=== PATIENT | male | born 1940 | race Hispanic/Latino ===

== ENCOUNTER → 2016-07-28 | Outpatient (CLI) | payer MEDICARE, MEDICAID | END | disposition home or self-care (01) | LOC: YCFC.O 07:43 | PROVIDERS: ATTEND Nurse Practitioner Family | DX: E11.65 Type 2 diabetes mellitus with hyperglycemia (principal) ==

== ENCOUNTER 2016-10-10 12:04 | Observation (INO) | payer MEDICARE, MEDICAID ==
[2016-10-10] MEDS ORDERED: SODIUM CHLORIDE 0.9% 1000ML 1,000 ML IVS ONE (12:09)
[2016-10-10] MEDS ORDERED: ONDANSETRON INJ 4 MG/2 ML VIAL IV ONE (12:09)
--- NOTE | 2016-10-10 12:19 | ED.PDOC ---
History of Present Illness - General Chief Complaint: Abdominal Pain Stated Complaint: abdominal pain, constipation, weakness Time Seen by Provider: 10/10/16 12:06 Information Source: patient, RN notes reviewed, other - friend Additional Information: Pt states he lives alone and sometimes he reheats food that has been sitting out for a few hours/days. He says he thinks he may have food poisoning. He reports 3 to 4 days of nausea/vomiting/constipation/anorexia. He also reports feeling liking his abdomen/stomach is "on fire". He does not get care regularly and he is not taking any medicines. He reports emesis of liquid (unsure color) recently. - History of Present Illness Abdominal Pain Onset Location: epigastric Pain Radiation: no radiation Quality: mild, cramping, dull, intermittent Timing/Duration: days - x3 to4 Improving Factors: nothing Associated Symptoms: fever/chills, nausea/vomiting, shortness of breath, weakness Review of Systems - Review of Systems Constitutional: States: weakness EENTM: States: no symptoms reported Respiratory: States: short of breath Cardiology: States: no symptoms reported Gastrointestinal/Abdominal: States: see HPI, abdominal pain, constipation, vomiting Genitourinary: States: no symptoms reported Musculoskeletal: States: no symptoms reported Skin: States: no symptoms reported Neurological: States: no symptoms reported Endocrine: States: no symptoms reported Hematologic/Lymphatic: States: no symptoms reported Past Medical History (General) - Patient Medical History Hx Seizures: No Hx Stroke: No Hx Dementia: No Hx Pacemaker: No Hx Thyroid Disease: No Hx Diabetes: Yes Hx Cancer: No Hx of HIV: No Hx Hepatitis C: No Hx MRSA: No MRSA Source:: Wound - Vaccination History Hx Influenza Vaccination: Yes - Social History Hx Tobacco Use: No Hx Alcohol Use: No Hx Substance Use: No Hx Substance Use Treatment: No Hx Depression: No - Female History Patient : No Family Medical History - Family History Father Family History: Unknown Physical Exam - Physical Exam General Appearance: Alert, No apparent distress, Obese, Unkempt Eyes, Ears, Nose, Throat Exam: PERRL/EOMI, normal ENT inspection Neck: non-tender, full range of motion, supple, normal inspection Respiratory: chest non-tender, lungs clear, normal breath sounds, no respiratory distress, no accessory muscle use Cardiovascular/Chest: normal peripheral pulses, regular rate, rhythm Gastrointestinal/Abdominal: soft, distended - mild, other - no guarding Back Exam: normal inspection Extremity: normal range of motion, non-tender, normal inspection Neurologic: student support counselor II-XII nml as tested, no motor/sensory deficits, alert, normal mood/affect, oriented x 3 Skin Exam: normal color Lymphatic: no adenopathy Progress - Progress Progress: 10/10/16 12:37 Pt concerned for possible food poisoning given reheating of food that has been laying out for several hours/days. Pt is unkempt. He is in no distress. Will assess for hematologic, metabolic, and GI abnormalities with labs and CT Scan. EKG WNL, CBC and urine studies pending. Will treat symptoms with NS bolus and Zofran for now. 10/10/16 14:13 CT Report: IMPRESSION: No inflammatory finding to explain this patient's abdominal pain. No evidence of acute appendicitis. No evidence of bowel obstruction. Cholelithiasis. Prostate gland hypertrophy likely causing some bladder outlet obstruction. The gallbladder is distended. Aortic atherosclerosis and coronary artery disease. Patient states that his abdomen feels "not worse". I relayed results to him. He said, he can't ambulate at home. He is hoping to be admitted for this. 10/10/16 14:23 Patient will be admitted by ELLI Stern for Observation - Diagnosis: Weakness. - Results/Orders Results/Orders: 10/10/16 12:09 Hold Metformin x 48Hrs [id number] 10/10/16 12:21 EKG Assessment ONCE Laboratory Results - last 24 hr 10/10/16 10/10/16 10/10/16 12:06 12:06 12:07 WBC 10.6 RBC 5.16 Hgb 16.6 Hct 48.5 MCV 94.0 MCH 32.1 H MCHC 34.2 RDW 13.5 Plt Count 213 MPV 8.5 Absolute Neuts (auto) 8.90 H Absolute Lymphs (auto) 1.00 Absolute Monos (auto) 0.60 Absolute Eos (auto) 0.00 Absolute Basos (auto) 0.10 Neutrophils % 84.6 H Lymphocytes % 9.2 L Monocytes % 5.7 Eosinophils % 0.0 L Basophils % 0.5 Sodium 141 Potassium 3.5 L Chloride 103 Carbon Dioxide 28 Anion Gap 13.5 BUN 16 Creatinine 0.88 BUN/Creatinine Ratio 18.2 Random Glucose 81 Serum Osmolality 281.5 Calcium 9.3 Phosphorus 3.1 Magnesium 2.0 Total Bilirubin 0.6 AST 27 ALT 20 Alkaline Phosphatase 94 Creatine Kinase CK-MB (CK-2) CK-MB (CK-2) % Troponin I Serum Total Protein 8.1 Albumin 4.1 Globulin 4.0 H Albumin/Globulin Ratio 1.0 L Lipase 16 L Urine Color Urine Appearance Urine pH Ur Specific Bryant Urine Protein Urine Glucose (UA) Urine Ketones Urine Blood Urine Nitrite Urine Bilirubin Urine Urobilinogen Ur Leukocyte Esterase Urine RBC Urine WBC Ur Epithelial Cells Amorphous Sediment Urine Bacteria Urine Mucus Urine Opiates Screen Urine Barbiturates Ur Phencyclidine Scrn U Amphetamin/Meth Scrn U Benzodiazepines Scrn U Cocaine Metab Screen U Cannabinoids Screen 10/10/16 10/10/16 10/10/16 12:07 12:09 13:28 WBC RBC Hgb Hct MCV MCH MCHC RDW Plt Count MPV Absolute Neuts (auto) Absolute Lymphs (auto) Absolute Monos (auto) Absolute Eos (auto) Absolute Basos (auto) Neutrophils % Lymphocytes % Monocytes % Eosinophils % Basophils % Sodium Potassium Chloride Carbon Dioxide Anion Gap BUN Creatinine BUN/Creatinine Ratio Random Glucose Serum Osmolality Calcium Phosphorus Magnesium Total Bilirubin AST ALT Alkaline Phosphatase Creatine Kinase 263 H* CK-MB (CK-2) 4.0 CK-MB (CK-2) % Not Reportable Troponin I 0.02 Serum Total Protein Albumin Globulin Albumin/Globulin Ratio Lipase Urine Color Yellow Urine Appearance Clear Urine pH 6.0 Ur Specific Bryant 1.015 Urine Protein Trace Urine Glucose (UA) 100 H Urine Ketones 15 H Urine Blood Negative Urine Nitrite Negative Urine Bilirubin Negative Urine Urobilinogen 0.2 Ur Leukocyte Esterase Trace H Urine RBC 0 Urine WBC 3-5 H Ur Epithelial Cells 10-20 Amorphous Sediment 1+ Urine Bacteria Rare Urine Mucus Moderate Urine Opiates Screen Negative Urine Barbiturates Negative Ur Phencyclidine Scrn Negative U Amphetamin/Meth Scrn Negative U Benzodiazepines Scrn Negative U Cocaine Metab Screen Negative U Cannabinoids Screen Negative - EKG/XRAY/CT EKG: Sinus - 84 bpm, no ST Elevation Departure - Departure Clinical Impression: Weakness Vomiting Qualifiers: Vomiting Intractability: intractable Nausea presence: with nausea Time of Disposition: 14:38 Disposition: Admit Patient Condition: Fair Referrals: Betty,Liane, KENNEL ASSISTANT [Primary Care Provider] - 1-2 Weeks Home Medications: Ambulatory Orders Acetaminophen W/ Codeine [Tylenol W/ CODEINE #3] 1 ea PO BID PRN #10 06/09/14 Methocarbamol [Robaxin] 500 mg PO BEDTIME PRN #7 tab 06/09/14 Decision To Admit - Decistion To Admit Decision to Admit Reason: Medical Nature - Weakness. Admit for Observation. Decision to Admit Date: 10/10/16 Decision to Admit Time: 14:22
--- NOTE | 2016-10-10 14:05 | CT ---
EXAM DESCRIPTION: Abdomen/Pelvis w/Contrast CLINICAL HISTORY: 76 years Male, abdominal pain COMPARISON: None. TECHNIQUE: 5 mm axial images through the abdomen and pelvis were performed after the administration of intravenous contrast. Coronal and instructions. This exam was performed according to our departmental dose-optimization program which includes use of Automated Exposure Control, adjustment of the mA and/or kV according to patient size and/or use of iterative reconstruction technique. FINDINGS: The lung bases are clear aside from atelectasis. Multiple gallstones layering the gallbladder but there is no pericholecystic fat stranding. Postcontrast images of the liver, spleen, kidneys (small renal cysts), adrenal glands and atrophic pancreas are unremarkable. No ascites or small bowel obstruction. Noninflamed appendix. Vascular calcifications are present with aortic and at least moderate coronary artery involvement. Well-distended bladder without calculus. The prostate gland is hypertrophic. Fat-containing inguinal hernias, LEFT greater than RIGHT. No free fluid in the pelvis. IMPRESSION: No inflammatory finding to explain this patient's abdominal pain. No evidence of acute appendicitis. No evidence of bowel obstruction. Cholelithiasis. Prostate gland hypertrophy likely causing some bladder outlet obstruction. The gallbladder is distended. Aortic atherosclerosis and coronary artery disease. Electronically signed by: Yahaira Ortiz MD 10/10/2016 2:05 PM CDT
--- NOTE | 2016-10-10 14:36 | HP ---
SUPERVISING PHYSICIAN: Dung Guerrero M.D. CHIEF COMPLAINT: Abdominal pain. HISTORY OF PRESENT ILLNESS: This is a 76 year-old male patient who lives alone and came to the Emergency Room today saying that he thinks he may have food poisoning. He has been reheating food that has been left out for 3 to 4 days. He reports that he feels like his stomach is on fire. It is "on fire." He occasionally goes to [facility] but he does not take any medications, although he does say he has diabetes and has been told his blood pressure was high. He has also had some vomiting over the last couple of days and his time to have a stool was 3 days ago. He also complained of some extreme weakness that has been much worse in the last 3 days. Prior to 3 days ago, he could ambulate around his home with a walker and did not have any problems. About 3 days ago he has been unable to walk more than a few feet and he gets extremely weak and short of breath with any exertion. He is mostly [place]-speaking, although he can say a few words in Irish. PAST MEDICAL HISTORY: Difficult to obtain due to minimal medical care as well as the patient's inability to describe his past problems. 1. Diabetes mellitus. 2. Hypertension. PAST SURGICAL HISTORY: None. ALLERGIES: NO KNOWN DRUG ALLERGIES. CODE STATUS: DO NOT RESUSCITATE. SOCIAL HISTORY: He lives alone. He rarely receives medical assistance. He denies any tobacco, alcohol or illicit drug use. REVIEW OF SYSTEMS: Difficult to obtain due to minimal medical care as well as the patient's inability to describe his past problems. Negative except as per History of Present Illness. PHYSICAL EXAMINATION: VITAL SIGNS: He is afebrile, heart rate 83, blood pressure 166/89, respiratory rate 20, O2 sat is 93%. GENERAL: This is a 76 year-old obese male who is slightly unkempt. HEENT: Normocephalic and atraumatic. Pupils are equal and reactive. Oropharynx is clear. NECK: Supple without mass. CHEST: Clear to auscultation bilaterally except somewhat diminished at the bases. There is equal rise and fall of the chest with inspiration and expiration. CARDIOVASCULAR: Regular rate and rhythm. ABDOMEN: Rounded. It is obese. It is slightly firm. There is no rebound tenderness or guarding. EXTREMITIES: No cyanosis, clubbing or edema. NEUROLOGIC: He is awake, alert and oriented times three. LABORATORY: CBC is basically within normal limits, except his MCH is slightly high at 32.1 and neutrophils are 84.6. Sodium 141, potassium 3.5, chloride 103 , carbon dioxide 28, BUN 16, creatinine 0.88. Creatinine kinase is slightly elevated at 263, but his CK-MB and troponin are negative. Blood sugars have been 75 and 79. Lipase was 16. Abdomen and pelvis CT per radiology interpretation shows no inflammatory findings to explain this patient's abdominal pain. No evidence of acute appendix. No evidence of a bowel obstruction. Cholelithiasis, prostate gland hypertrophy likely causing some bladder outlet obstruction. The gallbladder is distended. Aortic atherosclerosis and coronary artery disease. All other labs and films have been reviewed via the EMR. ASSESSMENT: 1. Weakness with decreased ability to ambulate times 3 days. 2. Abdominal pain with nausea and vomiting. 3. Diabetes mellitus type 2. 4. Hypertension. 5. Constipation. PLAN: We will place the patient in Observation. I have initiated admission orders and we will gently hydrate him. I will keep him NPO for now and give him antiemetics. I will have IV maintenance fluids. In the morning, I will do an abdominal x-ray and if he has had no nausea overnight, we will advance his diet. If he is constipated, I will give him some Milk of Magnesia tomorrow. I have added sliding scale with Humalog insulin. We will continue to monitor him closely. I have also put a referral in for Operations General Agent to see if we can get him established with some home health. Maybe he can get some meals on wheels. Otherwise we will continue to monitor the patient closely and followup as needed. Dr. Guerrero is the collaborating physician available for consultation. #[id number] MARIAH
[2016-10-10] MEDS ORDERED: ACETAMINOPHEN SUPPOSITORY 650 MG PR PRN (15:41)
[2016-10-10] MEDS ORDERED: ONDANSETRON INJ 4 MG/2 ML VIAL IV PRN (15:41)
[2016-10-10] MEDS ORDERED: GLUCAGON INJ 1 MG VIAL SUBCU PRN (15:45)
[2016-10-10] MEDS ORDERED: DEXTROSE 50% 25 GM/50 ML SYG IV PRN (15:45)
[2016-10-10] MEDS: KCL 20MEQ/D5 1/2NS 1,000 ML IVS PRN ×2 (16:24→16:32)
[2016-10-10] MEDS: PANTOPRAZOLE SODIUM IV 40 MG VIAL IV SCH (16:32)
[2016-10-10] MEDS: IV SET AND CAP CHANGE INJ INJ SCH (16:33)
[2016-10-10] MEDS: ENOXAPARIN SODIUM 40 MG/0.4 ML SYG SUBCU SCH (16:33)
[2016-10-10] MEDS: INSULIN LISPRO 100 UNITS/ML PEN SUBCU SCH (18:00)
[2016-10-11] MEDS: INSULIN LISPRO 100 UNITS/ML PEN SUBCU SCH ×5 (00:15→21:19)
[2016-10-11] MEDS: KCL 20MEQ/D5 1/2NS 1,000 ML IVS PRN ×2 (00:50→12:56)
[2016-10-11] MEDS ORDERED: HYDROmorphone HCL INJ 2 MG/ML VIAL ONE (01:06)
[2016-10-11] MEDS: SODIUM CHLORIDE 0.9% (FLUSH) 10 ML SYG IV PRN ×3 (01:20→22:37)
[2016-10-11] MEDS: HYDROmorphone HCL INJ 2 MG/ML VIAL IV PRN ×3 (01:21→22:38)
--- NOTE | 2016-10-11 07:21 | RAD ---
Procedure: XR ABDOMEN 2 VIEWS SUPINE ERECT Exam Date: 10/11/2016 Ordering Provider: SERENITY ROBIN Clinical Indication: abd pain Comparison: 10/10/2016 CT abdomen pelvis Findings: There is excreted contrast in the distended urinary bladder from yesterday's CT. There is no small or large bowel distention. There is no pneumoperitoneum. There are no suspicious calcifications. There is no acute skeletal abnormality. Impression: 1. Nonobstructive bowel gas pattern. 2. Distended urinary bladder. Electronically signed by: Gasper Bryant MD 10/11/2016 7:20 AM CDT
[2016-10-11] MEDS ORDERED: MAGNESIUM HYDROXIDE 30 ML UD PO PRN (14:54)
[2016-10-11] MEDS: PANTOPRAZOLE SODIUM IV 40 MG VIAL IV SCH (16:41)
[2016-10-11] MEDS: ENOXAPARIN SODIUM 40 MG/0.4 ML SYG SUBCU SCH (16:41)
[2016-10-11] MEDS: MAGNESIUM HYDROXIDE 30 ML UD PO SCH ×2 (17:11→21:17)
--- NOTE | 2016-10-11 17:19 | PN ---
DATE: 10/11/16 SUPERVISING PHYSICIAN: Dung Guerrero M.D. SUBJECTIVE: The patient has been having a lot of abdominal pain this morning. He also per his x-ray showed that he had a distended bladder. Nursing was unable to place a catheter due to extensive phimosis. The patient was very uncomfortable, although he denied any chest pain, shortness of breath, nausea or vomiting. A Sanchez was placed, although the catheterization was somewhat traumatic due to his phimosis, 1,000 mL was returned after the catheter was placed. The patient did experience some level of relief after the Sanchez was inserted. OBJECTIVE: VITAL SIGNS: He is afebrile, pulse rate 80, blood pressure 116/68, respiratory rate 18, O2 sat is 93%. RESPIRATORY: Clear to auscultation bilaterally. CARDIAC: Regular rate and rhythm. ABDOMEN: Large and rounded, firm. Bowel sounds are positive. It is diffusely tender especially along the lower umbilicus area and pubic area. GENITOURINARY: His foreskin is irritated and red with some oozing of blood in the skin due to trauma. A Sanchez catheter is in place draining clear yellow urine. NEUROLOGIC: He is awake, alert and oriented times three. LABORATORY: CBC is basically within normal limits. Chemistry is basically within normal limits with the exception of his glucose is slightly high at 220, calcium 8.2. Urine culture is pending. Abdominal x-ray per radiology interpretation shows a nonobstructive bowel gas pattern with distended urinary bladder. Per my interpretation, it looks like the patient could have some constipation. All other labs and films have been reviewed via the EMR. ASSESSMENT: 1. Weakness with decreased ability to ambulate times 3 days that continues. 2. Traumatic catheterization due to phimosis. 3. Abdominal pain that could be related to bladder outlet obstruction or distended urinary bladder as well as constipation. 4. Nausea and vomiting that has now resolved. 5. Diabetes mellitus type 2. 6. Hypertension. PLAN: The patient continues to be in Observation. I will consult Dr. Larose tomorrow as he will be in clinic. Will also give him a couple of doses of Milk of Magnesia. Physical Therapy has already been consulted for tomorrow. Due to the results on the CAT scan from date of admission showing possible bladder outlet obstruction as well as the x-ray that shows a distended urinary bladder, after consultation with Dr. Larose he may need to be placed as an inpatient. Will order lab in the morning. Will continue to monitor the patient closely and followup as needed. Dr. Guerrero is the collaborating physician and available for consultation. #[id number] [facility]
[2016-10-11] MEDS ORDERED: KCL 20MEQ/D5 1/2NS 0 ML IVS ONE (20:21)
[2016-10-12] MEDS: SODIUM CHLORIDE 0.9% (FLUSH) 10 ML SYG IV PRN (02:10)
--- NOTE | 2016-10-12 06:59 | RAD ---
EXAM DESCRIPTION: Abdomen Flat Upright CLINICAL HISTORY: 76 years, Male, abd pain COMPARISON: Abdominal radiographs October 11, 2016 CT abdomen and pelvis with contrast October 10, 2016 TECHNIQUE: Supine and upright views of the abdomen FINDINGS: The bowel gas pattern is normal. There is no evidence of free air. There are no abnormal masses or calcifications. Limited evaluation of the liver, spleen, and kidneys demonstrate no gross abnormalities. The osseous structures are age appropriate. IMPRESSION: No acute intra-abdominal process. Electronically signed by: Yoel Philippe MD 10/12/2016 6:58 AM CDT
[2016-10-12] MEDS: INSULIN LISPRO 100 UNITS/ML PEN SUBCU SCH ×4 (07:59→21:30)
[2016-10-12] MEDS: SODIUM CHLORIDE 0.9% (FLUSH) 10 ML SYG IV SCH ×2 (09:11→21:30)
[2016-10-12] MEDS ORDERED: cefTRIAXone SODIUM 1 GM VIAL ONE ×2 (13:18→13:25)
[2016-10-12] MEDS ORDERED: SODIUM CHLORIDE 0.9% 50ML 50 ML ONE (13:20)
[2016-10-12] MEDS ORDERED: SODIUM CHL 0.9% 50ML MIN-BAG+ 50 ML IVPB ONE (13:25)
[2016-10-12] MEDS: cefTRIAXone SODIUM 1 GM in SODIUM CHL 0.9% 50ML MIN-BAG+ 50 ML IVPB SCH (13:27)
[2016-10-12] MEDS ORDERED: MAGNESIUM HYDROXIDE 30 ML UD PO ONE (15:06)
[2016-10-12] MEDS: ENOXAPARIN SODIUM 40 MG/0.4 ML SYG SUBCU SCH (15:33)
[2016-10-12] MEDS ORDERED: KETOROLAC TROMETHAMINE INJ 30 MG/ML VIAL IV ONE (16:36)
[2016-10-12] MEDS ORDERED: ACETAMINOPHEN 325 MG TAB PO PRN (16:36)
[2016-10-12] MEDS ORDERED: KETOROLAC TROMETHAMINE INJ 30 MG/ML VIAL ONE (18:10)
[2016-10-12] MEDS: PANTOPRAZOLE SODIUM IV 40 MG VIAL IV SCH (18:10)
--- NOTE | 2016-10-12 23:42 | PCM.CORE ---
Physician DVT/VTE - Nurse DVT Assessment & Total Each Risk Factor Represents 3 Points: Age over 75 years Each Risk Factor Represents 1 Point: Medical PT at Bed Rest Each Risk Factor is 1 Point: Obesity (BMI >25) DVT Assessment Score: 5 - 5 or more Very High Risk Treatments: Early Ambulation *, Sequential Compression Device Pharmacological: Enoxaparin 40mg SQ Daily
[2016-10-13] MEDS: SODIUM CHLORIDE 0.9% (FLUSH) 10 ML SYG IV PRN (01:37)
[2016-10-13] MEDS: HYDROmorphone HCL INJ 2 MG/ML VIAL IV PRN ×2 (01:38→08:47)
[2016-10-13 05:45] VITALS: TEMP 98.9
[2016-10-13] MEDS ORDERED: SODIUM CHL 0.9% 50ML MIN-BAG+ 50 ML IVPB ONE (07:21)
[2016-10-13] MEDS ORDERED: cefTRIAXone SODIUM 1 GM VIAL ONE (07:22)
[2016-10-13] MEDS: INSULIN LISPRO 100 UNITS/ML PEN SUBCU SCH ×2 (07:33→11:50)
--- NOTE | 2016-10-13 08:37 | PN ---
SUPERVISING PHYSICIAN: Goldy Ball MD DATE: 10/12/16 SUBJECTIVE: The patient was given some Milk of Magnesia and had minimal results last night. He did have a catheter placed, which is working well. He continues to have severe weakness and was able to be assessed by physical therapy, but was very weak in the process. OBJECTIVE: VITAL SIGNS: Temperature 98.1. Pulse 95. Blood pressure 150/83. Respirations 18. Saturation 92% on room air. I&Os show positive balance of 577 with 3107 in, 2530 out. He has had a couple of bowel movements. Weight 101.1 kg. CHEST: Lungs clear to auscultation bilaterally. HEART: Regular rate and rhythm. ABDOMEN: Remains large, rounded, very obese with positive bowel sounds with no tenderness noted on palpation today. GENITOURINARY: Continues to show some irritated oozing around the meatus and glans of the penis with Sanchez catheter in place. NEUROLOGIC: Alert and oriented times three. LABORATORY: White count within normal limits at 10.5, hemoglobin 15.1, hematocrit 43.6, platelet count 181,000, differential within normal limits. Chemistries normal electrolytes with potassium 3.9, BUN 11, creatinine 0.95, glucoses have been 197 to 288. Liver functions show slightly elevated bilirubin at 1.1, otherwise within normal limits. A repeat urinalysis today after clamping of catheter specimen showed a large amount of blood with 500 glucose, trace leukocytosis, and microscopic showed too numerous to count RBCs, 1 to 2 WBCs with rare bacteria. MICROBIOLOGY: Preliminary culture on admission showed gram positive cocci with gram negative jess pending final culture. Re-culture catheterized specimen is pending. RADIOLOGY: Repeat abdominal x-ray series this morning per radiologic interpretation shows no acute intraabdominal processes, continues to show normal bowel-gas pattern with a large amount of stool. ASSESSMENT: 1. Continued weakness with deconditioning, likely secondary to continued ongoing constipation and obesity with very limited mobility. 2. Traumatic catheterization due to phimosis with consultation with Dr. Larsoe with urinary catheter in place. 3. Abdominal pain related to bladder outlet obstruction and distended bladder, improved with placement of Sanchez catheter and continues to show a significant amount of constipation, but has some small results with laxatives and Milk of Magnesia. 4. Nausea and vomiting on admission, but currently without any active emesis, felt to be secondary to ongoing abdominal distention from constipation. 5. Type 2 diabetes mellitus. 6. Hypertension. PLAN: The patient was seen in consultation by Dr. Larose who recommended Sanchez catheter remain in place for at least 3 to 4 weeks and for the patient to followup with Dr. Larose for repeat examination. I did re-culture his urine from a catheterized specimen. We will await those culture results. Pending final culture results, we will start him on Rocephin. I feel like the culture result initially on admission was probably more contamination. We will continue to provide good perineal care with emphasis on cleaning glans of the penis and foreskin area. We will give him a soapsuds enema today as well as additional Milk of Magnesia and continue to work on his obstipation. Until discharge, which will hopefully be tomorrow, we will continue to monitor the patient closely and treat appropriately. Once discharged, arrangements are being made at this point to go home with his son who lives in [place] to have home health care at that point. Amanda, our social media developer, is continuing to work on this process. #[id number] [facility]
[2016-10-13] MEDS: SODIUM CHLORIDE 0.9% (FLUSH) 10 ML SYG IV SCH (08:49)
[2016-10-13] MEDS ORDERED: MAGNESIUM HYDROXIDE 30 ML UD PO SCH (09:00)
[2016-10-13] MEDS ORDERED: BIFIDOBACTERIUM INFANTIS 4 MG CAP PO SCH (09:30)
[2016-10-13] MEDS ORDERED: KETOROLAC TROMETHAMINE INJ 30 MG/ML VIAL IV ONE (10:16)
[2016-10-13 10:23] VITALS: BP 156/85
[2016-10-13] MEDS ORDERED: POLYETHYLENE GLYCOL 3350 17 GM PCKT PO SCH (10:30)
[2016-10-13] MEDS ORDERED: PANTOPRAZOLE SODIUM TAB 40 MG PO SCH (11:30)
[2016-10-13] MEDS: cefTRIAXone SODIUM 1 GM in SODIUM CHL 0.9% 50ML MIN-BAG+ 50 ML IVPB SCH (12:30)
[2016-10-13 17:23] VITALS: O2SAT 98
[2016-10-16] MEDS: ENOXAPARIN SODIUM 40 MG/0.4 ML SYG SUBCU SCH (11:14)
[2016-10-16] MEDS: INSULIN LISPRO 100 UNITS/ML PEN SUBCU SCH (11:14)
[2016-10-16] MEDS: IV SET AND CAP CHANGE INJ INJ SCH (11:15)
== END 2016-10-13 16:40 | disposition home health service (06) ==
LOC: ER 12:04 → MS 14:34
PROVIDERS: ADMIT Nurse Practitioner Acute Care; ATTEND Nurse Practitioner Family
DX: N32.0 Bladder-neck obstruction (principal); N47.1 Phimosis; N32.89 Other specified disorders of bladder; R53.1 Weakness; K59.00 Constipation, unspecified; R11.2 Nausea with vomiting, unspecified; R10.13 Epigastric pain; E11.9 Type 2 diabetes mellitus without complications; I10 Essential (primary) hypertension; R26.2 Difficulty in walking, not elsewhere classified; K80.20 Calculus of gallbladder without cholecystitis without obstruction; I25.10 Atherosclerotic heart disease of native coronary artery without angina pectoris; I70.0 Atherosclerosis of aorta; Z66 Do not resuscitate; Z79.4 Long term (current) use of insulin; Z79.899 Other long term (current) drug therapy; Z60.2 Problems related to living alone
CPT/HCPCS: 36415 ×4; 36416 ×10; 74010 ×2; 74177; 80048; 80053 ×3; 80307; 81001 ×2; 82550; 82553; 82948 ×13; 83036; 83690; 83735; 84100; 84484; 85025 ×4; 87086 ×2; 87088 ×2; 87186 ×3; 93005; 94760 ×16; 96361 ×2; 96365; 96372 ×4; 96375 ×4; 96376 ×3; 97116; 97162; 97530; 99284; A4216; G0378; G8978; G8979; J0696; J1170 ×5; J1650 ×3; J1815; J1885 ×2; J2405 ×2; J7030; J7050

== ENCOUNTER 2018-02-10 10:32 | Emergency (ER) | payer MEDICARE, OTHER ==
[2018-02-10 10:55] VITALS: TEMP 97.8
--- NOTE | 2018-02-10 12:42 | RAD ---
EXAM DESCRIPTION: Abdomen Series CLINICAL HISTORY: confusion COMPARISON: October 12, 2016 FINDINGS: AP supine and upright views of the abdomen show a nonspecific, nonobstructive bowel gas pattern with no evidence for free intraperitoneal air. No air-filled dilated loops of small bowel are seen. No significant air-fluid levels are identified. No obvious organomegaly is seen. No abnormal calcifications are seen in the expected location of the renal collecting systems. Visualized lung bases are unremarkable. IMPRESSION: Nonspecific abdominal series Electronically signed by: Behzad Roberson MD 02/10/2018 12:40 PM CDT
[2018-02-10] MEDS ORDERED: ACETAMINOPHEN 325 MG TAB PO ONE (14:20)
--- NOTE | 2018-02-10 16:33 | ED.PDOC ---
History of Present Illness - General Chief Complaint: Behavioral / Psych Stated Complaint: Scared, fearful of surrounding people Time Seen by Provider: 02/10/18 10:34 Source: patient Exam Limitations: clinical condition, language barrier - History of Present Illness Initial Comments: the patient is a 77-year-old male presenting to the emergency room practically stating that someone was trying to kill him. The patient was very paranoid and anxious upon arrival. Please did calm eventually however after extensive questioning and more than an hour spent with the patient it appears that he was simply upset because he thought his insurance coverage was not going to cover his medications, socially he was going to . The patient is Lao-speaking only and an site interpreter was used. Even with an site interpreter the patient was so excited initially that most of what he was saying was not making much sense. There was some initial concern for psychosis versus a stroke however after the patient calmed down and he was making good sense. He does seem to have some mild long-term memory deficits. His family, specifically his son was contacted and did confirm this. He has apparently had a long-term issue with mild paranoid behavior and becoming overly excited and agitated and having a difficult time thinking straight when he is that way. There is no definitive psychiatric history with this patient. He does apparently have some compliance issues with his diabetes. He reports that he has been taking his medicines as he is supposed to but he has not really been checking his blood sugars well. He is feeling okay this morning except for as stated above. Timing/Duration: unsure Severity: mild Improving Factors: nothing Worsening Factors: nothing Associated Symptoms: denies symptoms Allergies/Adverse Reactions: Allergies NO KNOWN ALLERGY Allergy (Unverified 02/10/18 10:50) Home Medications: Ambulatory Orders Aspirin [Baby Aspirin] 81 mg PO QD 02/10/18 Atorvastatin Calcium [Lipitor] 20 mg PO BID 02/10/18 Finasteride 5 mg PO DAILY 02/10/18 Insulin Degludec [Tresiba Flextouch] 44 unit SC DAILY 02/10/18 Liraglutide [Victoza] 0.3 ml SC DAILY 02/10/18 Lisinopril [Prinivil] 10 mg PO DAILY 02/10/18 Metformin HCl [Metformin HCl ER] 750 mg PO BID 02/10/18 Tamsulosin [Flomax] 0.4 mg PO QD 02/10/18 Review of Systems - Review of Systems Constitutional: States: no symptoms reported EENTM: States: no symptoms reported Respiratory: States: no symptoms reported Cardiology: States: no symptoms reported Gastrointestinal/Abdominal: States: no symptoms reported Genitourinary: States: no symptoms reported Musculoskeletal: States: no symptoms reported Skin: States: no symptoms reported Neurological: States: anxiety, other Endocrine: States: no symptoms reported 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 All other Systems: No Change from Baseline Past Medical History (General) - Patient Medical History Hx Seizures: No Hx Stroke: No Hx Dementia: No Hx Asthma: No Hx of COPD: No Hx Cardiac Disorders: No Hx Congestive Heart Failure: No Hx Pacemaker: No Hx Hypertension: No Hx Thyroid Disease: No Hx Diabetes: Yes Hx Cancer: No Hx of HIV: No Hx Hepatitis C: No Hx MRSA: No MRSA Source:: Wound - Vaccination History Hx Influenza Vaccination: - unknown Hx Pneumococcal Vaccination: - unknown - Social History Hx Tobacco Use: No Hx Alcohol Use: No Hx Substance Use: No Hx Substance Use Treatment: No Hx Depression: No Hx Physical Abuse: No Hx Emotional Abuse: No - Female History Patient : No Family Medical History - Family History Father Family History: Unknown Physical Exam - Physical Exam General Appearance: Alert, Anxious Eye Exam: bilateral normal Ears, Nose, Throat: hearing grossly normal, normal ENT inspection, normal pharynx Neck: full range of motion, supple Respiratory: lungs clear, normal breath sounds, no respiratory distress, no accessory muscle use Cardiovascular/Chest: normal peripheral pulses, regular rate, rhythm, no edema Peripheral Pulses: radial,right: 2+, radial,left: 2+, dorsalis pedis,right: 2+, dorsalis pedis,left: 2+ Gastrointestinal/Abdominal: non tender, soft Rectal Exam: deferred Back Exam: normal inspection, no CVA tenderness, no vertebral tenderness Extremity: non-tender, normal inspection, no pedal edema, normal capillary refill Neurologic: woven wood shade assembler II-XII nml as tested, alert, oriented x 3 Skin Exam: normal color Comments: Vital Signs - 24 hr 02/10/18 02/10/18 02/10/18 10:32 11:33 12:00 Temperature 97.8 F Pulse Rate [ 100 H 83 80 Right Radial] Respiratory 20 20 20 Rate Blood Pressure 183/90 127/80 154/80 [Left Arm] O2 Sat by Pulse 98 94 L 95 Oximetry 02/10/18 14:27 Temperature 97.8 F Pulse Rate [ 74 Right Radial] Respiratory 20 Rate Blood Pressure 137/83 [Left Arm] O2 Sat by Pulse 96 Oximetry Progress - Progress Progress: 02/10/18 16:33 the patient is a 77-year-old male presenting to emergency room with severe anxiety and some mild paranoia over what was going on with his Medicare and prescription coverage. director of home health services was contacted and an site interpreter was used. It appears the patient's insurance coverage has changed somewhat however all of his medications are covered and should cost him nothing out of pocket. The patient has been monitored for almost 6 hours and is behaving normally at this point. He does have some mild hyperglycemia and does need to take better control of his blood sugars. Family was contacted. Pharmacy was contacted. Cancer Researcher was used. The patient may eventually benefit from a medication such as Elavil for some of his anxiety and mild paranoia issues. He does need to keep follow-up with his primary care doctor. ER warnings were given. An hour and 15 minutes was spent by me with this patient in direct questioning and counseling. - Results/Orders Results/Orders: Laboratory Tests 02/10/18 02/10/18 02/10/18 11:42 11:42 14:35 WBC 7.8 RBC 4.72 Hgb 15.5 Hct 45.1 MCV 95.4 H MCH 32.8 H MCHC 34.3 RDW 13.4 Plt Count 180 MPV 8.5 Absolute Neuts (auto) 5.10 Absolute Lymphs (auto) 1.90 Absolute Monos (auto) 0.60 Absolute Eos (auto) 0.10 Absolute Basos (auto) 0.10 Neutrophils % 65.6 Lymphocytes % 24.4 Monocytes % 7.0 Eosinophils % 1.9 Basophils % 1.1 PT 10.3 INR 1.03 PTT (SP) 21.9 Sodium 138 Potassium 3.5 L Chloride 102 Carbon Dioxide 25 Anion Gap 14.5 BUN 17 Creatinine 0.77 BUN/Creatinine Ratio 22.1 H Random Glucose 268 H Serum Osmolality 286.6 Calcium 9.2 Magnesium 1.6 L Total Bilirubin 1.0 Direct Bilirubin 0.1 Indirect Bilirubin 0.9 H AST 24 ALT 25 Alkaline Phosphatase 98 Creatine Kinase 180 H CK-MB (CK-2) 4.7 H* CK-MB (CK-2) % 2.61 Troponin I < 0.02 Serum Total Protein 7.6 Albumin 4.1 Globulin Cancelled Albumin/Globulin Ratio Cancelled Urine Color Yellow Urine Appearance Clear Urine pH 6.5 Ur Specific [place] 1.020 Urine Protein Negative Urine Glucose (UA) 500 H Urine Ketones Trace Urine Blood Trace-intact H Urine Nitrite Negative Urine Bilirubin Negative Urine Urobilinogen 0.2 Ur Leukocyte Esterase Negative Urine RBC 1-3 Urine WBC 0-1 Ur Epithelial Cells 0-1 Urine Bacteria 0 Urine Opiates Screen Urine Barbiturates Ur Phencyclidine Scrn U Amphetamin/Meth Scrn U Benzodiazepines Scrn U Cocaine Metab Screen U Cannabinoids Screen Ethyl Alcohol 6.70 02/10/18 Unknown WBC RBC Hgb Hct MCV MCH MCHC RDW Plt Count MPV Absolute Neuts (auto) Absolute Lymphs (auto) Absolute Monos (auto) Absolute Eos (auto) Absolute Basos (auto) Neutrophils % Lymphocytes % Monocytes % Eosinophils % Basophils % PT INR PTT (SP) Sodium Potassium Chloride Carbon Dioxide Anion Gap BUN Creatinine BUN/Creatinine Ratio Random Glucose Serum Osmolality Calcium Magnesium Total Bilirubin Direct Bilirubin Indirect Bilirubin AST ALT Alkaline Phosphatase Creatine Kinase CK-MB (CK-2) CK-MB (CK-2) % Troponin I Serum Total Protein Albumin Globulin Albumin/Globulin Ratio Urine Color Urine Appearance Urine pH Ur Specific [place] Urine Protein Urine Glucose (UA) Urine Ketones Urine Blood Urine Nitrite Urine Bilirubin Urine Urobilinogen Ur Leukocyte Esterase Urine RBC Urine WBC Ur Epithelial Cells Urine Bacteria Urine Opiates Screen Negative Urine Barbiturates Negative Ur Phencyclidine Scrn Negative U Amphetamin/Meth Scrn Negative U Benzodiazepines Scrn Negative U Cocaine Metab Screen Negative U Cannabinoids Screen Negative Ethyl Alcohol acute abdominal series shows no significant pathology. Departure - Departure Clinical Impression: Anxiety attack Disposition: Discharge to Home or Self Care Condition: Fair Departure Forms: ED Discharge - Pt. Copy, Patient Portal Self Enrollment Instructions: Anxiety, Adult (DC) Diet: diabetic diet Activity: increase activity as tolerated Home Medications: Ambulatory Orders Aspirin [Baby Aspirin] 81 mg PO QD 02/10/18 Atorvastatin Calcium [Lipitor] 20 mg PO BID 02/10/18 Finasteride 5 mg PO DAILY 02/10/18 Insulin Degludec [Tresiba Flextouch] 44 unit SC DAILY 02/10/18 Liraglutide [Victoza] 0.3 ml SC DAILY 02/10/18 Lisinopril [Prinivil] 10 mg PO DAILY 02/10/18 Metformin HCl [Metformin HCl ER] 750 mg PO BID 02/10/18 Tamsulosin [Flomax] 0.4 mg PO QD 02/10/18 Additional Instructions: the patient is a 77-year-old male presenting to emergency room with an anxiety attack and some mild paranoia over what was going on with his Medicare and prescription coverage. director of home health services was contacted and an site interpreter was used. It appears the patient's insurance coverage has changed somewhat however all of his medications are covered and should cost him nothing out of pocket. The patient has been monitored for almost 6 hours and is behaving normally at this point. He does have some mild hyperglycemia and does need to take better control of his blood sugars. Family was contacted. Pharmacy was contacted. Cancer Researcher was used. The patient may eventually benefit from a medication such as Elavil for some of his anxiety and mild paranoia issues. He does need to keep follow-up with his primary care doctor. ER warnings were given.
[2018-02-10 16:48] VITALS: BP 152/75; O2SAT 98
== END 2018-02-10 16:50 | disposition home or self-care (01) ==
LOC: ER 10:32
DX: F41.9 Anxiety disorder, unspecified (principal); F03.90 Unspecified dementia, unspecified severity, without behavioral disturbance, psychotic disturbance, mood disturbance, and anxiety; E11.9 Type 2 diabetes mellitus without complications; Z79.4 Long term (current) use of insulin; Z79.82 Long term (current) use of aspirin; Z79.899 Other long term (current) drug therapy

== ENCOUNTER → 2018-03-30 | Outpatient (CLI) | payer MEDICARE, MEDICAID ==
--- NOTE | 2018-03-30 16:08 | RAD ---
EXAM DESCRIPTION: Left knee, 2 views CLINICAL HISTORY: Osteoarthritis. Knee pain FINDINGS/ IMPRESSION: Severe medial femorotibial osteoarthritis with [id number] contact and prominent marginal osteophytes. Small marginal osteophytes lateral femorotibial and patellofemoral No fracture or acute osteochondral lesion. No joint effusion Vascular calcifications Electronically signed by: Dung Walters MD 03/30/2018 4:07 PM [facility]
--- NOTE | 2018-03-30 16:09 | RAD ---
EXAM DESCRIPTION: Right knee, 2 radiographs CLINICAL HISTORY: Osteoarthritis. Knee pain FINDINGS/ IMPRESSION: Severe medial femorotibial osteoarthritis with [id number] contact and mild scalloped remodeling of the tibia. Prominent marginal osteophytes Lateral meniscal chondrocalcinosis. Small marginal osteophytes lateral femorotibial and patellofemoral. Small suprapatellar joint effusion. Small loose body posterior to the femoral condyle and the lateral projection Mass or calcification No fracture Electronically signed by: Dung Walters MD 03/30/2018 4:07 PM [facility]
--- NOTE | 2018-03-30 16:10 | RAD ---
EXAM DESCRIPTION: XR CHEST 2 VIEWS CLINICAL HISTORY: DYSPNEA COMPARISON: None TECHNIQUE: PA/lateral FINDINGS: Heart size is normal. Low lung volumes likely shallow inspiration with basilar atelectasis. No pulmonary edema, alveolar consolidation or pleural effusion.. No acute bony abnormality. Bilateral glenohumeral osteoarthritis. Chronic full-thickness rotator cuff tear on the right IMPRESSION: Basilar atelectasis Electronically signed by: Dung Walters MD 03/30/2018 4:08 PM [employer]
== END ==
LOC: RAD 11:47
PROVIDERS: ATTEND Family Medicine
DX: M15.9 Polyosteoarthritis, unspecified (principal); R06.09 Other forms of dyspnea; M25.461 Effusion, right knee; M11.261 Other chondrocalcinosis, right knee

== ENCOUNTER → 2018-04-22 | Outpatient (CLI) | payer MEDICARE, MEDICAID | LOC: LAB.O 07:44 | PROVIDERS: ATTEND Family Medicine | DX: I10 Essential (primary) hypertension (principal) ==

== ENCOUNTER 2018-05-12 15:43 | Observation (INO) | payer MEDICARE, MEDICAID ==
--- NOTE | 2018-05-12 16:16 | ED.PDOC ---
History of Present Illness - General Chief Complaint: General Stated Complaint: weakness,dizziness Time Seen by Provider: 05/12/18 16:02 Source: patient, RN notes reviewed, Vital Signs reviewed, family Exam Limitations: language barrier - THE PATIENT'S NIECE IS PROVIDING TRANSLATION PER THE PATIENT'S REQUEST. - History of Present Illness Initial Comments: The patient presents to emergency department with complaint of bilateral lower extremity weakness as well as lightheadedness that started approximately 8 hours ago. The patient states that he noted that he woke up this morning and was suffering from periods of lightheadedness without syncope. The patient also noted that he started becoming weaker than he normal is in his lower extremities which progressively got worse to the point where he was unable to ambulate today. The patient is also noted complaining of nausea at this time. Due to these symptoms the patient contacted his niece who emergently brought him in for evaluation and care due to the patient's health not being in his usual state Allergies/Adverse Reactions: Allergies NO KNOWN ALLERGY Allergy (Unverified 02/10/18 10:50) Home Medications: Ambulatory Orders Aspirin [Baby Aspirin] 81 mg PO QD 02/10/18 Atorvastatin Calcium [Lipitor] 20 mg PO BID 02/10/18 Finasteride 5 mg PO DAILY 02/10/18 Insulin Degludec [Tresiba Flextouch] 44 unit SC DAILY 02/10/18 Liraglutide [Victoza] 0.3 ml SC DAILY 02/10/18 Lisinopril [Prinivil] 10 mg PO DAILY 02/10/18 Metformin HCl [Metformin HCl ER] 750 mg PO BID 02/10/18 Tamsulosin [Flomax] 0.4 mg PO QD 02/10/18 Past Medical History (General) - Patient Medical History Hx Seizures: No Hx Stroke: No Hx Dementia: No Hx Asthma: No Hx of COPD: No Hx Cardiac Disorders: No Hx Congestive Heart Failure: No Hx Pacemaker: No Hx Hypertension: No Hx Thyroid Disease: No Hx Diabetes: Yes Hx Cancer: No Hx of HIV: No Hx Hepatitis C: No Hx MRSA: No MRSA Source:: Wound Surgical History: noncontributory - Vaccination History Hx Influenza Vaccination: No Hx Pneumococcal Vaccination: - unknown - Social History Hx Tobacco Use: No Hx Alcohol Use: No Hx Substance Use: No Hx Substance Use Treatment: No Hx Depression: No Hx Physical Abuse: No Hx Emotional Abuse: No - Female History Patient : No Family Medical History - Family History Father Family History: Unknown Physical Exam - Physical Exam General Appearance: Alert, Well Developed, Well Groomed Ears, Nose, Throat: hearing grossly normal, normal ENT inspection Neck: supple Respiratory: chest non-tender, lungs clear, normal breath sounds Cardiovascular/Chest: regular rate, rhythm, no edema, other - DORSALIS PEDIS PULSES EQUAL, +1 BILATERALLY. Gastrointestinal/Abdominal: normal bowel sounds, tenderness - +GENERALIZED TTP NOTED. Back Exam: normal inspection, other - GENREALIZED TTP OF L4/L5 AREAS NOTED. NO CVA TENDERNESS NOTED. Extremity: normal range of motion Neurologic: alert, normal mood/affect Skin Exam: normal color, warm/dry Progress - Progress Progress: 05/12/18 16:17 Weakness, dizziness, anemia, hypotension, dehydration, hypoglycemia, viral syndrome, influenza, pneumonia, sepsis, urinary tract infection, electrolyte imbalance, deconditioning, hypothyroidism, gastrointestinal bleed, cerebral vascular accident, transient ischemic attack. PATIENT PRESENTATION CONCERNING FOR WEAKNESS AT THIS TIME. WILL ORDER EKG/TROPONIN TO EVALUATE FOR ACS CAUSE OF PATIENT'S WEAKNESS. PATIENT WILL ALSO HAVE CBC TO EVALUATE FOR ANEMIA CAUSE OF HIS ACUTE WEAKNESS WELL. PATIENT WILL HAVE CMP ORDERED TO EVALUATE FOR ELECTROLYTE DERANGEMENT WELL DEHYDRATION. PATIENT WILL ALSO HAVE UA TO EVALUATE FOR UTI WELL CXR TO EVALUATE FOR PNA. THE PATIENT WILL ALSO RECEIVE A CT HEAD TO EVALUATE FOR INTRACRANIAL PATHOLOGY WELL CT AP TO EVALUATE FOR INTRAABDOMINAL PATHOLOGY. THE PATIENT'S DISPO WILL BE DEPENDENT UPON HIS ED WORK UP. 05/12/18 17:01 THE PATIENT REMAINS STABLE AT THIS TIME. I HAVE ADVISED HIM OF LAB RESULTS EXCEPT HIS PENDING UA WELL CT/CXR RESULTS AT THIS TIME. IN LIGHT OF THE PATIENT'S LACTIC ACID BEING ELEVATED AT 2.5, IVF (30ML/KG BASED ON IBW WHICH IS APPROXIMATELY 1700ML,), ABX, AND BC HAVE BEEN ORDERED DUE TO THE PATIENT POSSIBLY HAVING AN OCCULT INFECTION THAT COULD EXPLAIN HIS SYMPTOMS. 05/12/18 18:27 THE PATIENT REMAINS STABLE AT THIS TIME. HE HAS BEEN ADVISED HE WILL BE ADMITTED TO THE FLOOR AT THIS TIME. HE HAS NO QUESTIONS. - EKG/XRAY/CT EKG: no ST T wave changes Comments: EKG- ST, RATE OF 112 BPM, AXIS IS NORMAL - Consult/PCP Time Called: 17:19 Consult/PCP: Lucrecia WHITE MUSIC THERAPIST Consult Reason/Comments: WILL EVALUATE PT TO SEE IF HE MAY BE ADMITTED HERE OR REQUIRES TRANSFER. - Additional EKG/XRAY/Consults Time Called: 17:56 Consult/PCP: Lucrecia WHITE MUSIC THERAPIST Reason/Comments: HAS EVALUATED THE PATIENT AND ACCEPTS THE ADMISSION. Departure - Departure Clinical Impression: Generally unwell, Weakness ICD-10 Supporting Text: ELEVATED LACTIC ACID HX DIABETES MELLITUS Disposition: Admit Patient Condition: Good Home Medications: Ambulatory Orders Aspirin [Baby Aspirin] 81 mg PO QD 02/10/18 Atorvastatin Calcium [Lipitor] 20 mg PO BID 02/10/18 Finasteride 5 mg PO DAILY 02/10/18 Insulin Degludec [Tresiba Flextouch] 44 unit SC DAILY 02/10/18 Liraglutide [Victoza] 0.3 ml SC DAILY 02/10/18 Lisinopril [Prinivil] 10 mg PO DAILY 02/10/18 Metformin HCl [Metformin HCl ER] 750 mg PO BID 02/10/18 Tamsulosin [Flomax] 0.4 mg PO QD 02/10/18 Decision To Admit - Decistion To Admit Decision to Admit Reason: Admit from ER Decision to Admit Date: 05/12/18 Decision to Admit Time: 18:28
[2018-05-12] MEDS ORDERED: SODIUM CHLORIDE 0.9% 1000ML 1,000 ML IVS ONE ×2 (16:44→17:08)
--- NOTE | 2018-05-12 16:56 | RAD ---
EXAM: Chest,1 View CLINICAL INDICATION: Weakness COMPARISON: 03/30/2018 FINDINGS: A single view of the chest was obtained. The heart size is normal. The pulmonary vascularity is unremarkable. The lungs are clear. There is no consolidation, infiltrate, pleural effusion, or pneumothorax. IMPRESSION: No evidence of active pulmonary disease. Electronically signed by: Tevin Parsons MD 05/12/2018 4:55 PM CUT OUT PRESS OPERATOR
--- NOTE | 2018-05-12 16:56 | CT ---
EXAM DESCRIPTION: Head CLINICAL HISTORY: weakness. COMPARISON: None available TECHNIQUE: Contiguous axial images through the head were obtained without intravenous contrast administration. Sagittal and coronal reconstructions were reviewed. FINDINGS: No evidence of acute major vascular territorial infarct or intraparenchymal hemorrhage. No intra-axial or extra-axial fluid collections are identified. The ventricles and cisterns appear normal in caliber. The sella and suprasellar regions appear normal. The structures of the posterior fossa are intact. The globes are intact bilaterally. The visualized paranasal sinuses and mastoid air cells are well-aerated. Review of the bones demonstrates no gross instability. IMPRESSION: No CT evidence of acute intracranial process. This exam was performed according to our departmental dose-optimization program, which includes automated exposure control, adjustment of the mA and/or kV according to patient size and/or use of iterative reconstruction technique. Electronically signed by: Rudy Grande MD 05/12/2018 4:55 PM MEAT PROCESSOR
[2018-05-12] MEDS ORDERED: CEFEPIME 2 GM in SODIUM CHL 0.9% 50ML MIN-BAG+ 50 ML IVPB ONE (16:59)
--- NOTE | 2018-05-12 16:59 | CT ---
EXAM: Abdomen/Pelvis w/Contrast CLINICAL INDICATION: Abdominal pain. COMPARISON: 10/10/2016 TECHNIQUE: The CT scan was done using contiguous axial 5 mm postcontrast sections through the abdomen and pelvis including IV contrast. This exam was performed according to our departmental dose-optimization program, which includes automated exposure control, adjustment of the mA and/or kV according to patient size and/or use of iterative reconstruction technique. FINDINGS: The visualized portions of the lung bases contain areas of subsegmental atelectasis but are otherwise clear. The liver is unremarkable. Gallstones are noted in the gallbladder. The kidneys contain a few tiny simple cysts but otherwise appear unremarkable. The adrenal glands, spleen, and pancreas are unremarkable. The aorta contains atherosclerotic calcifications without evidence of aneurysm. The appendix is normal. No dilated loops of small bowel are seen. The prostate gland is enlarged measuring up to 5.1 x 6.9 cm. There is no free air, free fluid, or abscess. IMPRESSION: 1. No evidence of an acute intra-abdominal process. 2. Cholelithiasis. 3. Enlarged prostate gland. Electronically signed by: Tevin Parsons MD 05/12/2018 4:58 PM [employer] OPERATIONS ENGINEER
[2018-05-12] MEDS ORDERED: SODIUM CHL 0.9% 50ML MIN-BAG+ 50 ML IVPB ONE (17:01)
[2018-05-12] MEDS ORDERED: CEFEPIME 2 GM VIAL ONE (17:01)
[2018-05-12] MEDS ORDERED: DEXTROSE 50% 25 GM/50 ML SYG IV PRN (19:11)
[2018-05-12] MEDS ORDERED: MAGNESIUM HYDROXIDE 30 ML UD PO PRN (19:11)
[2018-05-12] MEDS ORDERED: ACETAMINOPHEN 325 MG TAB PO PRN (19:11)
[2018-05-12] MEDS ORDERED: GLUCAGON INJ 1 MG VIAL SUBCU PRN (19:11)
[2018-05-12] MEDS ORDERED: SODIUM CHLORIDE 0.9% (FLUSH) 10 ML SYG IV PRN (19:11)
[2018-05-12] MEDS ORDERED: LISINOPRIL 10 MG TAB PO ONE (19:17)
[2018-05-12] MEDS ORDERED: IV SET AND CAP CHANGE INJ INJ SCH (19:30)
--- NOTE | 2018-05-12 19:49 | HP ---
SUPERVISING PHYSICIAN: Goldy Ball M.D. CHIEF COMPLAINT: Weakness and dizziness. HISTORY OF PRESENT ILLNESS: Mr. Diaz is a 77 year-old male with limited Kiswahili-speaking capabilities presented to the E. R. today complaining of bilateral lower extremity weakness as well as some light-headedness that had been going on for approximately 8 hours prior to arrival in the E. R. His niece was at bedside and was assisting with interpreting. Per the patient, it was noted that he had woke up this morning and was having some dizziness but denied any actual syncopal episodes. He noted that over the day he became weaker in his lower extremities to the point where he notes that he was unable to ambulate without assistance. He was also complaining of some nausea at that point, but on admission to the E. R. today he was without any complaints of nausea or vomiting. He was seen in the E. R. initially and worked up. Laboratory studies showed a normal white count at 8,600, hemoglobin 16.3, hematocrit 48.1, normal platelets. Differential showed to be without a left shift. Chemistries showed normal electrolytes with potassium 4.1, BUN 20, creatinine 0.84. Lactic acid was elevated at 2.5, calcium was normal. Liver functions are all normal. Troponin is normal. Urinalysis just showed 500 glucose with 15 ketones, otherwise within normal limits. Blood cultures were completed with concerns for elevated lactic acid and possible urinary tract infection versus unknown source with the patient having some reported abdominal pains and a history of cholelithiasis. Dr. Petit requested a CT of the abdomen and pelvis with contrast. Per radiology interpretation there was no evidence of any acute intraabdominal process. Again noted was cholelithiasis and enlarged prostate gland. The patient's vital signs on admission showed that he was afebrile. He was mildly tachycardic at 112, but he was showing to be quite hypertensive with blood pressure 163/98, but he was showing 96% saturations and respirations of 20. CT of the head was completed as well which showed no acute intracranial abnormalities per radiology interpretation. He also had a chest x-ray and per radiology interpretation no evidence of acute pulmonary disease. His 12-lead EKG showed normal sinus rhythm without any ST or T wave changes. The patient is now going to be placed in observation tonight for concerns for a possible transient ischemic attack versus generalized weakness and deconditioning, and close monitoring with neurological and cardiac assessments. He was placed in observation in stable condition. PAST MEDICAL HISTORY: Obtained from previous admission records as the patient is a very poor historian. 1. Diabetes mellitus type 2 on both oral and insulin regimens. 2. Hypertension poorly controlled. PAST SURGICAL HISTORY: None listed. CURRENT MEDICATIONS: ALLERGIES: NO KNOWN DRUG ALLERGIES. SOCIAL HISTORY: The patient lives alone and notes he rarely receives any medical assistance but has been seen in the clinic by Dr. Guerra, but not in the recent months. He denies any tobacco, alcohol or illicit drug use. REVIEW OF SYSTEMS: CONSTITUTIONAL: Negative for any chills, fevers, general malaise or unintentional weight loss. HEENT: Negative for nasal congestion, ear aches, sore throat, headaches, vision changes. RESPIRATORY: Negative for shortness of breath, cough, wheezing. CARDIOVASCULAR: Negative for any chest pains, palpitations or syncopal episodes. Negative for any pedal edema. GASTROINTESTINAL: Negative for any constipation, diarrhea. Positive for generalized abdominal pains prior to admission but negative on assessment with 1 episode of nausea but no emesis. GENITOURINARY: Denies any dysuria, hematuria or polyuria. NEUROLOGIC: As noted in history of present illness, generalized lower extremity weakness. Negative for ataxia, seizures or syncopal episodes. PHYSICAL EXAMINATION: VITAL SIGNS: Temperature 97.7, pulse 112, blood pressure 163/98, respirations 20, satting 96% on room air at rest. Weight is 83.9 kg. GENERAL: The patient appears to be comfortable in no acute distress. Well nourished. HEENT: Tympanic membranes are clear bilaterally. Oropharynx was pink and moist without any lesions. NECK: Supple, non-tender with full range of motion. No jugular venous distention. CHEST: Lungs are clear to auscultation bilaterally without any notable rhonchi, wheezing or rales. CARDIOVASCULAR: Regular rate and rhythm without appreciable murmurs, gallops, or rubs. ABDOMEN: Obese but nondistended, soft with some generalized tenderness to palpation. No point tenderness. No peritoneal signs or rebound. BACK: Normal inspection. Atraumatic. No CVA tenderness noted. EXTREMITIES: He moves all extremities ad alvin with strength being 5/5 bilaterally with no edema, clubbing or cyanosis. NEUROLOGIC: He is alert and oriented times three. Cranial nerves II-XII are grossly intact. Facial features were symmetrical. Extraocular movements are within normal limits. There is no notable nystagmus. Negative for ataxia both on [id number] and [id number]. No motor drift. No notable extremity weakness both upper and lower extremities. Imcu Nurse were strong and equal. SKIN: Normal color. Warm and dry with no lesions or rashes. LABORATORY: CBC showed white count 8,600, hemoglobin 16.3, hematocrit 48.1, platelet count 193,000. Differential showed to be without a left shift. Sed rate was pending. Chemistries initially showed potassium 4.1, otherwise electrolytes were showing to be within normal limits. Anion gap was normal at 15.1, carbon dioxide 29, BUN 20, creatinine 0.84, glucose 184. Lactic acid was slightly elevated at 2.5, calcium 9.6, magnesium normal at 2.0. Liver functions are all within normal limits. Troponin is less than 0.02. CPK is normal at 55, lipase 32. TSH is in normal limits at 2.51. Urinalysis just showed 500 glucose, 15 ketones, otherwise within normal limits. Toxicology screen and urine drug screen as tested was all negative. MICROBIOLOGY: He had 2 sets of blood cultures drawn. RADIOLOGY: Chest x-ray per radiology interpretation showed no evidence of active pulmonary disease. CT of the head was without any acute intracranial processes. Abdomen and pelvis CT with contrast per radiology interpretation, impression was no evidence of acute intraabdominal processes. There was note again of cholelithiasis which has been seen on previous CTs and enlarged prostate gland as well that was seen on previous CTs. ASSESSMENT: 1. Generalized lower extremity weakness without syncopal episode with concerns for a possible transient ischemic attack with the patient not being on previous statin or antiplatelet and showing poor control of hypertension with multiple risk factors. 2. Diabetes mellitus type 2 on both insulin and oral therapy. 3. Hypertension, poorly controlled, not on current antihypertensive medications. 4. Mild lactic acidosis more likely a result of dehydration but no obvious infective source seen with the patient having a normal C reactive protein but showing mild ketones on urinalysis on admission. 5. Abdominal pain with some nausea with the patient having a longstanding history of cholelithiasis but no acute cholecystitis noted on current CT. 6. Constipation as noted on CT studies. 7. Moderate dehydration possibly contributing to his lower extremity weakness. PLAN: The patient is going to be placed in observation tonight for further cardiac and telemetry monitoring as well as neuro checks every 4 hours. I started him on a statin as well as aspirin and Lisinopril for better control of his blood pressure. Will do a lipid panel in the morning and carotid Doppler studies as well to further evaluate for possible carotid artery disease that could be contributing to his symptomology. Will continue with fluids which he was initially given 3 liters in the E. R. for dehydration and monitor his I's and O's closely. Will resume his home medications once those have been updated and verified. Will start him on DVT prophylaxis per protocol. He will be on insulin sliding scale per protocol. Will also get a Physical Therapy evaluation in the morning. Anticipated length of stay to be at least 1 to 2 days. Until he can transition to outpatient management will continue to monitor and treat as needed. #[id number] [facility]
[2018-05-12] MEDS: KCL 20MEQ/0.45% NS 1,000 ML IVS PRN (20:44)
[2018-05-12] MEDS: ASPIRIN (ENTERIC COATED) 81 MG TAB PO SCH (20:44)
[2018-05-12] MEDS: INSULIN LISPRO 100 UNITS/ML PEN SUBCU SCH (20:58)
[2018-05-12] MEDS ORDERED: ATORVASTATIN 20 MG TAB PO SCH (21:00)
[2018-05-12] MEDS ORDERED: BISACODYL TAB 5 MG TAB PO ONE (21:46)
[2018-05-12] MEDS ORDERED: POLYETHYLENE GLYCOL 3350 17 GM PCKT PO ONE (21:47)
[2018-05-13] MEDS: INSULIN LISPRO 100 UNITS/ML PEN SUBCU SCH ×2 (07:42→11:54)
[2018-05-13] MEDS: KCL 20MEQ/0.45% NS 1,000 ML IVS PRN (10:09)
[2018-05-13] MEDS: ASPIRIN (ENTERIC COATED) 81 MG TAB PO SCH (10:09)
--- NOTE | 2018-05-13 10:10 | US ---
EXAM DESCRIPTION: Carotid Duplex CLINICAL HISTORY: Possible TIA COMPARISON: None Available. TECHNIQUE: Carotid Doppler ultrasound FINDINGS: Right Submitted images show tortuosity of the right CCA with calcified plaque at the right carotid bulb. On sagittal images causes approximately 65% narrowing of the diameter of the lumen. On axial images with measurements there is 62% area stenosis of the right carotid bulb and 10% area stenosis of the proximal right ICA Calcified plaque is seen in the proximal right ICA. The following flow velocities were obtained: Common carotid artery peak systolic flow velocity measures 89 centimeters per second. Internal carotid artery peak systolic flow velocity measures 60-130 centimeters per second. This is consistent with 50-69% origin stenosis. External carotid artery peak systolic flow velocity measures 112 centimeters per second. Flow in the right vertebral artery is antegrade. The right internal carotid to common carotid peak systolic flow velocity ratio equals 1.5 which is normal. Left Submitted images show mild tortuosity and moderate plaque in the left CCA with calcified plaque in the left carotid bulb. 29% area stenosis is measured on transverse image of the left carotid bulb. The following flow velocities were obtained: Common carotid artery peak systolic flow velocity measures 92 centimeters per second. Internal carotid artery peak systolic flow velocity measures 67-80 centimeters per second. External carotid artery peak systolic flow velocity measures 112 centimeters per second. Flow in the left vertebral artery is antegrade. The left internal carotid to common carotid peak systolic flow velocity ratio of 0.9 is normal. 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 Electronically signed by: Neel Mirza MD 05/13/2018 10:09 AM [facility]
[2018-05-13 13:54] VITALS: BP 137/80; TEMP 98.9; O2SAT 98
[2018-05-13] MEDS ORDERED: MAGNESIUM HYDROXIDE 30 ML UD PO SCH (22:00)
--- NOTE | 2018-05-23 08:41 | DS ---
SUPERVISING PHYSICIAN: Goldy Ball MD ADMISSION DIAGNOSIS: 1. Generalized lower extremity weakness without syncopal episode with concerns for a possible transient ischemic attack with the patient not being on previous statin or antiplatelet and showing poor control of hypertension with multiple risk factors. 2. Diabetes mellitus type 2 on both insulin and oral therapy. 3. Hypertension, poorly controlled, not on current antihypertensive medications. 4. Mild lactic acidosis more likely a result of dehydration but no obvious infective source seen with the patient having a normal C reactive protein but showing mild ketones on urinalysis on admission. 5. Abdominal pain with some nausea with the patient having a longstanding history of cholelithiasis but no acute cholecystitis noted on current CT. 6. Constipation as noted on CT studies. 7. Moderate dehydration possibly contributing to his lower extremity weakness. DISCHARGE DIAGNOSIS: 1. Generalized lower extremity weakness without any mention of syncopal episode but concerns for a possible transient ischemic attack with the patient having been started on statin and antiplatelet prior to discharge with patient with history of not presently on statin or antiplatelets and having multiple risk factors.along with poor control of his hypertension. He will need close followup as an outpatient. 2. Diabetes mellitus type 2 on both insulin and oral therapy, showing to be stable. 3. Hypertension, poorly controlled, started on antihypertensive.. 4. Mild lactic acidosis probably due to dehydration with no signs of infection and normal C reactive protein.. 5. Abdominal pain, probably due to chronic cholelithiasis but no acute cholecystitis on current CT at time of admission. 6. Constipation probably contributing to #2, some of his abdominal pain but resolved prior to discharge.. 7. Moderate dehydration probably contributing to some of his lower extremity weakness. REASON FOR HOSPITALIZATION: Mr. Diaz is a 77 year-old male with limited Uzbek-speaking capabilities presented to the E. R. today complaining of bilateral lower extremity weakness as well as some light-headedness that had been going on for approximately 8 hours prior to arrival in the Emergency Room. His niece was at bedside and was assisting with interpreting. Per the patient, it was noted that he had woke up this morning and was having some dizziness but denied any actual syncopal episodes. He noted that over the day he became weaker in his lower extremities to the point where he notes that he was unable to ambulate without assistance. He was also complaining of some nausea at that point, but on admission to the Emergency Room he was without any complaints of nausea or vomiting. He was seen in the Emergency Room initially and worked up. Laboratory studies showed a normal white count at 8,600, hemoglobin 16.3, hematocrit 48.1, normal platelets. Differential showed to be without a left shift. Chemistries showed normal electrolytes with potassium 4.1, BUN 20, creatinine 0.84. Lactic acid was elevated at 2.5, calcium was normal. Liver functions are all normal. Troponin is normal. Urinalysis just showed 500 glucose with 15 ketones, otherwise within normal limits. Blood cultures were completed with concerns for elevated lactic acid and possible urinary tract infection versus unknown source with the patient having some reported abdominal pains and a history of cholelithiasis. Dr. Petit requested a CT of the abdomen and pelvis with contrast. Per radiology interpretation there was no evidence of any acute intraabdominal process. Again noted was cholelithiasis and enlarged prostate gland. The patient's vital signs on admission showed that he was afebrile. He was mildly tachycardic at 112, but he was showing to be quite hypertensive with blood pressure 163/98, but he was showing 96% saturations and respirations of 20. CT of the head was completed as well which showed no acute intracranial abnormalities per radiology interpretation. He also had a chest x-ray and per radiology interpretation no evidence of acute pulmonary disease. His 12-lead EKG showed normal sinus rhythm without any ST or T wave changes. The patient is now going to be placed in observation tonight for concerns for a possible transient ischemic attack versus generalized weakness and deconditioning, and close monitoring with neurological and cardiac assessments. He was placed in observation in stable condition. LABORATORY STUDIES: CBC showed a normal white count of 8,600, hemoglobin 16.3, hematocrit 48.1, platelet count showed to be without any differential changes. Sed rate was normal at 17. Chemistries on admission showed normal electrolytes with BUN 20, creatinine 0.84, lactic acid elevated at 2.5, discharge was 1.4 after fluids. Liver functions all showed to within normal limits. Troponin less then 0.01. Lipase normal at 32, TSH normal at 2.51. Glucose 500, 15 ketones, otherwise within normal limits. Toxicology screen showed negative for all sources tested on 7 subsequent drug screen on urine. MICROBIOLOGY: Blood cultures showed no growth at 5 days. RADIOLOGY: Initial chest x-ray in the Emergency Room showed no evidence of acute cardiopulmonary disease. CT of the head without contrast on admission showed no CT evidence of acute intracranial process. He also had an abdominal pelvic CT due to abdominal pain that was reported on admission and per radiology interpretation there was no evidence of acute intraabdominal process. There again was note of cholelithiasis and enlarged prostate. After admission he had a carotid artery study and per radiology interpretation showed accelerated flow velocity consistent with 50 to 69% stenosis of the proximal right ICA. EKG showed sinus tachycardia at 112 but no other EKG changes. HOSPITAL COURSE: Mr. Diaz was admitted as noted above for near syncopal episode as well as extreme weakness concerning for transient ischemic attack. He was worked up and followed closely and was found to be without any acute findings other than what was noted in the history of present illness. He had no recurrence of his lower extremity weakens. He had a physical therapy evaluation on the morning of documentation and was found to be safe to return home to Home Health services for continued physical therapy. It was felt that he was showing to be clinically stable. He was also started on a statin, lisinopril and an aspirin prior to discharge. PLAN: Mr. Diaz was discharged on 05/13/18 with instructions to followup with Dr. Guerra at [facility]. He also had outpatient physical therapy with Home Health services through [facility] arranged. He is to hold his Metformin until Wednesday after discharge due to CT with contrast and then resume as directed. He was encouraged fluids to prevent dehydration and told to return to the hospital should he have any concerning symptoms. Actually no new medications at discharge as there was a misunderstanding of his home medications. He was already on a statin antihypertensive as well as an antiplatelet which were continued at discharge. All other medications were continued as noted prior to discharge. 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 It was time to take his insulin and does not need any snacks after that point. He was again tole to keep his blood sugars, take those to the clinic so they can continue followup and trends could be noted if possible. DIET DISCHARGE: Diabetic diet with 3 meals recommended as well as an evening snack prior to bedtime. ACTIVITIES: Activity as tolerated. No driving or working with mechanical equipment or heavy machinery until he is seen in followup with Dr. Guerra. DISPOSITION: The patient is discharged to the care of his family which includes his niece and he is to followup for further arrangements with Home Health with Dr. Guerra. He was offered possibly inpatient rehabilitation but refused that at this point in discharge but is willing to discuss at followup. The patient was discharged in stable condition and improving. #[id number] [facility]
== END 2018-05-13 13:45 | disposition home health service (06) ==
LOC: ER 15:43 → MS 19:48
PROVIDERS: ADMIT Nurse Practitioner Family; ATTEND Nurse Practitioner Family
DX: M62.81 Muscle weakness (generalized) (principal); I10 Essential (primary) hypertension; E11.65 Type 2 diabetes mellitus with hyperglycemia; E87.2 Acidosis; K80.20 Calculus of gallbladder without cholecystitis without obstruction; K59.00 Constipation, unspecified; E86.0 Dehydration; R42 Dizziness and giddiness; N40.0 Benign prostatic hyperplasia without lower urinary tract symptoms; I65.21 Occlusion and stenosis of right carotid artery; Z66 Do not resuscitate; Z79.4 Long term (current) use of insulin; Z79.82 Long term (current) use of aspirin; Z79.899 Other long term (current) drug therapy
CPT/HCPCS: 96361 ×2; 96365; 96372 ×2; J7030 ×2; J0692; J3480 ×2; J1815; J7050; 80048 ×2; 80053; 80307; 82948 ×4; 80061; 36415 ×5; 81001; 86140; 85025; 82550; 87040 ×2; 83690; 83735; 85651; 84443; 84484; 36416 ×3; 83605 ×2; 71045; 70450; 74177; 93880; 94760 ×2; 97116; G8978; G8979; G8980; 97162; 99285; 93005

== ENCOUNTER 2018-05-30 16:45 | Emergency (ER) | payer MEDICARE, MEDICAID ==
[2018-05-30] MEDS ORDERED: ALPRAZolam 0.25 MG TAB PO ONE (17:09)
[2018-05-30] MEDS ORDERED: PROMETHAZINE HCL 25 MG TAB PO ONE (17:09)
[2018-05-30] MEDS ORDERED: ALPRAZolam 0.5 MG TAB ONE (17:17)
--- NOTE | 2018-05-30 17:46 | RAD ---
EXAM DESCRIPTION: Abdomen Series CLINICAL HISTORY: abd pain 18 hours COMPARISON: 12 May 2018 TECHNIQUE: PA chest with supine and upright views of the abdomen] FINDINGS: Atelectatic type parenchymal changes are observed in both lung bases. The heart is within range of normal. Interposed colon is observed on the right. No evidence of free air is observed. Degenerative changes are observed in the lumbar spine. IMPRESSION: 1. Atelectatic type parenchymal changes are observed in both lung bases. 2. The exam of the abdomen is unremarkable and unchanged from the previous Electronically signed by: Luis Armando Hernandez MD 05/30/2018 5:45 PM [facility]
[2018-05-30] MEDS ORDERED: INSULIN, REG.(HUMAN) 100 U/ML VIAL IV ONE (18:08)
[2018-05-30] MEDS ORDERED: SODIUM CHLORIDE 0.9% 1000ML 1,000 ML IVS ONE (18:08)
[2018-05-30] MEDS ORDERED: cefOXitin SODIUM 2 GM in SODIUM CHL 0.9% 50ML MIN-BAG+ 50 ML IVPB ONE (19:13)
--- NOTE | 2018-05-30 19:14 | CT ---
EXAM DESCRIPTION: Abdomen/Pelvis w/o Contrast CLINICAL HISTORY: 77 years Male abd pain, arf, leukocytosis, hyperglycemia COMPARISON: 05/12/2018 TECHNIQUE: Contiguous axial images obtained through the abdomen and pelvis without IV contrast. Reformatted images obtained. This exam was performed according to our department optimization program which includes automated exposure control, adjustment of the mA and/or kv according to patient size and/or use of iterative reconstruction technique. FINDINGS: Atelectasis in the lung bases. The liver appears unremarkable. The spleen and pancreas appear unremarkable. No adrenal masses. Perinephric stranding bilaterally which is nonspecific and may be related to scarring. Cysts in the left renal hilum and cortex. Nonobstructing renal calculi on the left. The gallbladder is mildly distended. Gallstones are noted. No wall thickening or surrounding inflammation. There appears to be a stone in the cystic duct. Small hiatal hernia. No aneurysmal dilatation of the aorta. There is dilatation of the appendix with surrounding inflammatory change. The appendix measures 1.4 cm. Tiny focus of gas is seen along the distal aspect of the appendix which could reflect a tiny focus of perforation. Adjacent stranding and inflammatory changes are noted. Mild wall thickening is seen in the terminal ileum. No fluid in the pelvis. Enlarged prostate. IMPRESSION: Findings consistent with acute appendicitis. There is a small focus of gas along the tip of the appendix which could reflect small focus of microperforation or tiny focus of abscess formation. Dr. Guerrero was called and notified of the findings at 7:12 PM central time. Some adjacent wall thickening of the terminal ileum Cholelithiasis without acute cholecystitis Nonobstructing left renal stones Electronically signed by: Rita Veliz MD 05/30/2018 7:13 PM BUSINESS ANALYTICS MANAGER
--- NOTE | 2018-05-30 19:34 | ED.PDOC ---
History of Present Illness - General Chief Complaint: Trauma Stated Complaint: ABD PAIN AFTER FALL Time Seen by Provider: 05/30/18 16:59 Source: patient, family - History of Present Illness Initial Comments: The patient is a 77-year-old male presenting to emergency room secondary to abdominal pain for the last 24 hours. No fever. Questionable nausea. No diarrhea or constipation. Abdominal pain seems to localize a little more to the right side. Of note the patient had been admitted here around 2 weeks ago for some generalized abdominal pain and generalized weakness. A CT scan was done at that time showing really only gallstones and it was thought he might of been having a little biliary colic going on. No evidence of appendicitis at that time. His white blood cell count was not elevated. The patient apparently went home and did well up until last night. The patient does have some moderate dementia. Additionally he did have a laparoscopic surgery about a year and a half ago in [place] where he thinks they took out about a foot of small bowel. He does not know why. Family does not know why. he apparently did however spend some time in the ICU after that surgery. Abdominal pain is a little more to the right side today. He does have some voluntary guarding at least. He also has some mild tachycardia but he has been seen several times here before and has always had some mild tachycardia. Additionally today he does appear to be hyperglycemic, but he does have a history of poorly controlled diabetes. He does also have a history of moderate dementia, significant anxiety and moderate hypertension. Timing/Duration: 24 hours Severity: moderate Improving Factors: nothing Worsening Factors: movement Associated Symptoms: loss of appetite, malaise Allergies/Adverse Reactions: Allergies NO KNOWN ALLERGY Allergy (Unverified 02/10/18 10:50) Home Medications: Ambulatory Orders Aspirin [Baby Aspirin] 81 mg PO QD 02/10/18 Atorvastatin Calcium [Lipitor] 20 mg PO BID 02/10/18 Finasteride 5 mg PO DAILY 02/10/18 Insulin Degludec [Tresiba Flextouch] 44 unit SC DAILY 02/10/18 Liraglutide [Victoza] 0.3 ml SC DAILY 02/10/18 Lisinopril [Prinivil] 10 mg PO DAILY 02/10/18 Metformin HCl [Metformin HCl ER] 750 mg PO BID 02/10/18 Tamsulosin [Flomax] 0.4 mg PO QD 02/10/18 Review of Systems - Review of Systems Constitutional: States: malaise EENTM: States: no symptoms reported Respiratory: States: no symptoms reported Cardiology: States: no symptoms reported Gastrointestinal/Abdominal: States: abdominal pain, nausea - very mild Genitourinary: States: no symptoms reported Musculoskeletal: States: no symptoms reported Skin: States: no symptoms reported Neurological: States: anxiety Endocrine: States: no symptoms reported All other Systems: No Change from Baseline Past Medical History (General) - Patient Medical History Hx Seizures: No Hx Stroke: No Hx Dementia: No Hx Asthma: No Hx of COPD: No Hx Cardiac Disorders: No Hx Congestive Heart Failure: No Hx Pacemaker: No Hx Hypertension: Yes Hx Thyroid Disease: No Hx Diabetes: No Hx Cancer: No Hx of HIV: No Hx Hepatitis C: No Hx MRSA: No MRSA Source:: Wound - Vaccination History Hx Influenza Vaccination: No Hx Pneumococcal Vaccination: No Immunizations Up to Date: No - Social History Hx Tobacco Use: No Hx Alcohol Use: No Hx Substance Use: No Hx Substance Use Treatment: No Hx Depression: No Hx Physical Abuse: No Hx Emotional Abuse: No - Female History Patient : No Family Medical History - Family History Father Family History: Unknown Physical Exam - Physical Exam General Appearance: Alert, Anxious Eye Exam: bilateral normal Ears, Nose, Throat: hearing grossly normal, normal pharynx Neck: full range of motion, supple Respiratory: lungs clear, normal breath sounds, no respiratory distress, no accessory muscle use Cardiovascular/Chest: normal peripheral pulses, regular rate, rhythm - sinus tachycardia, no edema Peripheral Pulses: radial,right: 2+, radial,left: 2+ Gastrointestinal/Abdominal: other - bese. He does have at least voluntary guarding. 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 He does become a little bit confused when asked complex questions, which is his baseline. Skin Exam: normal color Comments: Vital Signs - 24 hr 05/30/18 05/30/18 17:05 17:56 Temperature 98.9 F Pulse Rate [ 113 H 115 H MONITOR] Respiratory 22 20 Rate Blood Pressure 143/74 130/65 [LA] O2 Sat by Pulse 92 L 93 L Oximetry Progress - Progress Progress: 05/30/18 19:36 the patient is 77-year-old male presenting to the emergency room with what appears to be a perforated appendicitis. He is receiving a dose of Mefoxin. He is also receiving a liter of IV fluids and a dose of insulin for the hyperglycemia. He is being transferred for higher level of care and surgical intervention. He is being made nothing by mouth. He will need a glucose rechecked upon arrival at the receiving facility. Acceptance of transfer is greatly appreciated. - Results/Orders Results/Orders: CT scan of abdomen and pelvis shows what is likely a perforated appendicitis. Laboratory Tests 05/30/18 05/30/18 05/30/18 17:20 17:20 17:20 WBC 14.5 H RBC 4.09 L Hgb 13.4 L Hct 39.1 L MCV 95.7 H MCH 32.7 H MCHC 34.2 RDW 13.3 Plt Count 208 MPV 8.4 Absolute Neuts (auto) 12.80 H Absolute Lymphs (auto) 0.60 L Absolute Monos (auto) 1.10 H Absolute Eos (auto) 0.00 Absolute Basos (auto) 0.00 Neutrophils % 88.4 H Lymphocytes % 4.1 L Monocytes % 7.4 Eosinophils % 0.0 L Basophils % 0.1 Sodium 129 L Potassium 4.4 Chloride 92 L Carbon Dioxide 25 Anion Gap 16.4 BUN 42 H Creatinine 1.98 H BUN/Creatinine Ratio 21.2 H Random Glucose 504 H* Serum Osmolality 291.2 Lactic Acid 2.0 Calcium 8.7 Magnesium 2.4 Total Bilirubin 2.6 H* AST 28 ALT 33 Alkaline Phosphatase 122 H Creatine Kinase 60 CK-MB (CK-2) 0.9 CK-MB (CK-2) % Not Reportable Troponin I < 0.02 Serum Total Protein 7.6 Albumin 3.6 Globulin 4.0 H Albumin/Globulin Ratio 0.9 L Amylase 29 Lipase 18 L Departure - Departure Clinical Impression: Acute perforated appendicitis Disposition: Transfer to Hospital Referrals: Goran Guerra MD [Primary Care Provider] - 1-2 Weeks Home Medications: Ambulatory Orders Aspirin [Baby Aspirin] 81 mg PO QD 02/10/18 Atorvastatin Calcium [Lipitor] 20 mg PO BID 02/10/18 Finasteride 5 mg PO DAILY 02/10/18 Insulin Degludec [Tresiba Flextouch] 44 unit SC DAILY 02/10/18 Liraglutide [Victoza] 0.3 ml SC DAILY 02/10/18 Lisinopril [Prinivil] 10 mg PO DAILY 02/10/18 Metformin HCl [Metformin HCl ER] 750 mg PO BID 02/10/18 Tamsulosin [Flomax] 0.4 mg PO QD 02/10/18 Transfer to Outside Facility - Transfer Information Accepting Provider:: sandhya rowe/kalyani Accepting Facility: [facility] Reason for Transfer: required specialist not available
[2018-05-30] MEDS ORDERED: cefOXitin SODIUM 2 GM INJ IVPB ONE (19:53)
[2018-05-30] MEDS ORDERED: SODIUM CHL 0.9% 50ML MIN-BAG+ 50 ML IVPB ONE (19:54)
[2018-05-30] MEDS ORDERED: MORPHINE SULFATE INJ 10 MG/ML VIAL IV ONE (20:02)
[2018-05-30 20:34] VITALS: BP 122/60; TEMP 99.3; O2SAT 93
== END 2018-05-30 20:45 | disposition short-term general hospital (02) ==
LOC: ER 16:45
DX: K35.33 Acute appendicitis with perforation, localized peritonitis, and gangrene, with abscess (principal); I10 Essential (primary) hypertension; E11.9 Type 2 diabetes mellitus without complications; F03.90 Unspecified dementia, unspecified severity, without behavioral disturbance, psychotic disturbance, mood disturbance, and anxiety; F41.9 Anxiety disorder, unspecified; Z79.899 Other long term (current) drug therapy; Z79.4 Long term (current) use of insulin
CPT/HCPCS: 36415; 36416; 74019; 74176; 80053; 82150; 82550; 82553; 82948; 83605; 83690; 83735; 84484; 85025; 87040; 87502; J0694; J2270; J7030; J7050; Q0169

== ENCOUNTER 2018-08-01 10:27 | Emergency (ER) | payer MEDICARE, MEDICAID ==
[2018-08-01] MEDS ORDERED: SODIUM CHLORIDE 0.9% 1000ML 1,000 ML IVS PRN (11:03)
[2018-08-01] MEDS ORDERED: SODIUM CHLORIDE 0.9% (FLUSH) 10 ML SYG IV PRN (11:03)
[2018-08-01] MEDS ORDERED: MORPHINE SULFATE INJ 10 MG/ML VIAL IV ONE (11:04)
--- NOTE | 2018-08-01 11:17 | ED.PDOC ---
History of Present Illness - General Chief Complaint: Abdominal Pain Stated Complaint: RT side pain/ swelling, has indwelling SHEYLA drain Time Seen by Provider: 08/01/18 11:02 Information Source: patient, family Exam Limitations: language barrier - History of Present Illness Initial Comments: PT PRESENTS TO THE ED WITH COMPLAINT OF RIGHT SIDED ABDOMINAL PAIN SINCE LAST NIGHT. PT RECENTLY TREATED FOR A RUPTURED APPENDICITIS S/P APPENDECTOMY. PT ALSO WAS FOUND TO HAVE GALLBLADDER DISEASE AND SHEYLA DRAIN WAS SUBSEQUENTLY PLACED. PT REPORTS PROGRESSIVELY DECREASING OUTPUT FROM SHEYLA DRAIN. PT DENIES NAUSEA, VOMITING, FEVER. Abdominal Pain Onset Location: RUQ, RLQ Quality: moderate, severe Timing/Duration: 24 hours Improving Factors: nothing Worsening Factors: nothing Associated Symptoms: denies symptoms Review of Systems - Review of Systems Constitutional: Denies: chills, fever EENTM: Denies: nose congestion, throat pain Respiratory: Denies: cough, short of breath Cardiology: Denies: chest pain, palpitations Gastrointestinal/Abdominal: States: see HPI, abdominal pain, diarrhea. Denies: nausea, vomiting Genitourinary: Denies: dysuria, frequency Musculoskeletal: Denies: joint pain, joint swelling Skin: Denies: change in color, dryness Neurological: Denies: headache Endocrine: States: no symptoms reported Hematologic/Lymphatic: States: no symptoms reported Past Medical History (General) - Patient Medical History Hx Seizures: No Hx Stroke: No Hx Dementia: Yes Hx Asthma: No Hx of COPD: No Hx Cardiac Disorders: No Hx Congestive Heart Failure: No Hx Pacemaker: No Hx Hypertension: Yes Hx Thyroid Disease: No Hx Diabetes: Yes Hx Cancer: No Hx of HIV: No Hx Hepatitis C: No Hx MRSA: No MRSA Source:: Wound Surgical History: appendectomy, other - Vaccination History Hx Tetanus, Diphtheria Vaccination: No Hx Influenza Vaccination: No Hx Pneumococcal Vaccination: No - Social History Hx Tobacco Use: No Hx Alcohol Use: No Hx Substance Use: No Hx Substance Use Treatment: No Hx Depression: No Hx Physical Abuse: No Hx Emotional Abuse: No - Activities of Daily Living Skilled Nursing/Assisted Living (if applicable):: [facility] - Female History Patient : No Family Medical History - Family History Father Family History: Unknown Physical Exam - Physical Exam General Appearance: Alert, Obese, Well Groomed, Well Hydrated, Other - APPEAR UNCOMFORTABLE Eyes, Ears, Nose, Throat Exam: PERRL/EOMI, normal ENT inspection Neck: supple, normal inspection Respiratory: lungs clear, normal breath sounds, no respiratory distress Cardiovascular/Chest: no murmur, tachycardia Gastrointestinal/Abdominal: soft, distended, tenderness - DIFFUSE, WORSE IN RUQ AND RLQ, SHEYLA DRAIN IN RIGHT LATERAL ABDOMINAL WALL, TTP OF SHEYLA DRAIN SITE. NO OUTPUT IN DRAINAGE BAG Extremity: non-tender, normal inspection Neurologic: alert, normal mood/affect Skin Exam: warm/dry, pallor Progress - Progress Progress: 08/01/18 13:00 PT REPORTS SIGNIFICANT IMPROVEMENT IN PAIN AFTER IV MORPHINE. LAB AND CT FINDINGS DISCUSSED WITH PT AND FAMILY. WILL CONSULT WITH DR. PERSAUD AND DISCUSS CT FINDINGS. INSULIN ORDERED FOR HYPERGLYCEMIA 08/01/18 14:35 REPEAT GLUCOSE 329 AFTER 8 UNITS SC INSULIN. ADDITIONAL 5 UNITS IV ORDERED. 08/01/18 16:36 REPEAT GLUCOSE 379. PT WAS GIVEN CRACKERS BY NURSING STAFF. WILL D/C HOME AND INSTRUCT PT TO RESUME SLIDING SCALE REGIMEN. - Results/Orders Results/Orders: Laboratory Tests 08/01/18 08/01/18 08/01/18 11:10 11:10 12:02 WBC 8.1 RBC 3.94 L Hgb 12.5 L Hct 36.9 L MCV 93.7 MCH 31.8 H MCHC 33.9 RDW 14.2 Plt Count 280 MPV 8.1 Absolute Neuts (auto) 5.00 Absolute Lymphs (auto) 2.10 Absolute Monos (auto) 0.70 Absolute Eos (auto) 0.20 Absolute Basos (auto) 0.10 Neutrophils % 62.0 Lymphocytes % 25.9 Monocytes % 8.2 Eosinophils % 2.6 Basophils % 1.3 Sodium 130 L Potassium 4.7 Chloride 95 L Carbon Dioxide 24 Anion Gap 15.7 BUN 24 H Creatinine 1.04 BUN/Creatinine Ratio 23.1 H POC Glucose Random Glucose 431 H* Serum Osmolality 283.3 Calcium 8.7 Total Bilirubin 0.5 Direct Bilirubin 0.1 Indirect Bilirubin 0.4 AST 28 ALT 25 Alkaline Phosphatase 186 H Serum Total Protein 7.5 Albumin 3.3 Lipase 35 Urine Color Yellow Urine Appearance Clear Urine pH 5.5 Ur Specific [place] 1.015 Urine Protein 30 Urine Glucose (UA) 500 H Urine Ketones Negative Urine Blood Trace-intact H Urine Nitrite Negative Urine Bilirubin Negative Urine Urobilinogen 0.2 Ur Leukocyte Esterase Negative Urine RBC 0-1 Urine WBC 0-1 Ur Epithelial Cells 0 Urine Bacteria 0 Urine Yeast 1+ budding 08/01/18 15:40 WBC RBC Hgb Hct MCV MCH MCHC RDW Plt Count MPV Absolute Neuts (auto) Absolute Lymphs (auto) Absolute Monos (auto) Absolute Eos (auto) Absolute Basos (auto) Neutrophils % Lymphocytes % Monocytes % Eosinophils % Basophils % Sodium Potassium Chloride Carbon Dioxide Anion Gap BUN Creatinine BUN/Creatinine Ratio POC Glucose 329 H Random Glucose Serum Osmolality Calcium Total Bilirubin Direct Bilirubin Indirect Bilirubin AST ALT Alkaline Phosphatase Serum Total Protein Albumin Lipase Urine Color Urine Appearance Urine pH Ur Specific [place] Urine Protein Urine Glucose (UA) Urine Ketones Urine Blood Urine Nitrite Urine Bilirubin Urine Urobilinogen Ur Leukocyte Esterase Urine RBC Urine WBC Ur Epithelial Cells Urine Bacteria Urine Yeast - EKG/XRAY/CT CT: ABD/PEL CT Ordered: Yes CT Interpretation Call Back: No - NO ACUTE FINDINGS PER RAD, QUESTIONABLE DISPLACEMENT OF PC DRAIN. - Consult/PCP Time Called: 13:45 Consult/PCP: DR. PERSAUD Consult Reason/Comments: AGREES WITH PLAN TO D/C AND FOLLOW UP NEXT WEEK PLANNED. Departure - Departure Clinical Impression: Abdominal pain, Biliary drain displacement, Sanchez catheter in place prior to arrival, Hyperglycemia Time of Disposition: 16:34 Disposition: Discharge to Home or Self Care Condition: Fair Departure Forms: ED Discharge - Pt. Copy, Patient Portal Self Enrollment Instructions: DI for Abdominal Pain-Adult Referrals: Goran Guerra MD [Primary Care Provider] - 1-5 Days SUSANNE PERSAUD [Referring] - 1 Week Home Medications: Ambulatory Orders Aspirin [Baby Aspirin] 81 mg PO QD 02/10/18 Atorvastatin Calcium [Lipitor] 20 mg PO BID 02/10/18 Finasteride 5 mg PO DAILY 02/10/18 Insulin Degludec [Tresiba Flextouch] 44 unit SC DAILY 02/10/18 Liraglutide [Victoza] 0.3 ml SC DAILY 02/10/18 Lisinopril [Prinivil] 20 mg PO DAILY 02/10/18 Metformin HCl [Metformin HCl ER] 750 mg PO TID 02/10/18 Tamsulosin [Flomax] 0.4 mg PO QD 02/10/18 Acetaminophen [Tylenol] 325 mg PO PRN 08/01/18 Bisacodyl [Dulcolax] 10 mg IA PRN 08/01/18 Diclofenac Epolamine [Flector] 1.3 % TD Q12HR 08/01/18 Enoxaparin Sodium [Lovenox] 40 mg SUBCU QD 08/01/18 Famotidine 20 mg PO BID 08/01/18 HYDROcodone 5MG/APAP 325MG [Teller 5/325] 1 ea PO PRN 08/01/18 Insulin Detemir [Levemir] 25 unit SUBCU BID 08/01/18 Insulin Detemir [Levemir] 35 unit SUBCU BID 08/01/18 Insulin Lispro [HumaLOG] 5 unit SUBCU AC 08/01/18 Lactobacillus [Acidophilus Lactobacilli] 1 cap PO DAILY 08/01/18 Ondansetron HCl [Zofran] 4 mg PO PRN 08/01/18 Polyethylene Glycol 1450 [Polyethylene Glycol Nf] 17 gm PO PRN 08/01/18 Sennosides [Senna-Lax] 17.2 mg PO BEDTIME 08/01/18 raNITIdine HCL [Zantac] 150 mg PO BID 08/01/18
--- NOTE | 2018-08-01 12:38 | CT ---
EXAM DESCRIPTION: Abdomen/Pelvis w/Contrast: Computed Tomography. CLINICAL HISTORY: 77 years Male RLQ ABD PAIN COMPARISON: CT scan of abdomen and pelvis 05/30/2018. TECHNIQUE: Spiral-axial scans at 5 x 5 mm intervals through the abdomen and pelvis, after nonionic IV contrast . No oral contrast. Coronal and sagittal 2.0 mm reconstructions. No delayed scans. No adverse reactions. Total Exam DLP: 1204.98 mGy-cm. This exam was performed according to our departmental dose-optimization program which includes automated exposure control, adjustment of the mA and/or kV according to patient size and/or use of iterative reconstruction technique; to reduce radiation dose to as low as reasonably achievable (ALARA). FINDINGS: Pancreas, Gallbladder, Ducts: A percutaneous drain with pigtail tip can be seen in the wall of the gallbladder which has decreased significantly in size since the prior study. No significant wall thickening. Multiple radiodense gallstones in the dependent portion of the gallbladder again seen. Minimal density of fat around the gallbladder. No fluid collection. No common bile duct distention with fatty infiltration of the pancreas and no mass or fluid. Liver, Stomach, Spleen, Adrenal Glands: Stomach distended by fluid. Liver normal size with no significant biliary duct dilation and no focal lesions. Other solid organs negative. Kidneys and Ureters: 2 cm cyst left kidney. 6 mm cyst upper pole right kidney. No hydronephrosis or radiodense stones bilaterally. Pararenal thickening is stable. Mesentery: Minimal bilateral paracolic gutter fascial stranding stable. No free fluid or new free air. Lung bases and pleura: Bibasilar atelectasis without effusion. Coronary artery calcifications. Aorta: Minimal atherosclerotic calcifications including some of the major branch vessels. Caliber unremarkable. Small Bowel: No. Terminal Ileum/Cecum: Normal caliber TI. Mild cecal distention by fecal material. Appendix not seen. No new fatty stranding. Surgical sutures inferior cecum. Colon: Redundancy of the sigmoid colon. Mostly gas in the distal colon with minimal fecal material proximally. Pelvic Organs: Prostate gland abutting the base of the urinary bladder. Tip of urinary catheter position may be interstitial in the dome of the urinary bladder. Balloon is inflated. Spine and Bony Pelvis: Minimal arthrosis bilateral hip joints. Bilateral facet arthrosis SI joints inferiorly. Minimal spondylosis lower thoracic spine. Abdominal Wall/Back Soft Tissues: Bilateral fatty inguinal hernias not containing bowel. Subcutaneous adipose tissue to the anterior pelvic wall left lower quadrant. Diastases umbilicus but not containing bowel. IMPRESSION: 1. Interstitial versus intraluminal position of tip of percutaneous gallbladder drain. No free air. No pericholecystic fluid or significant fascial or fatty stranding. 2. Tip of urinary bladder catheter may be interstitial in the dome of the bladder, suggested on all 3 imaging planes. Evaluate for maximum drainage position and/or withdrawal catheter several centimeters. Electronically signed by: Esteban Clifford MD 08/01/2018 12:35 PM CDT
[2018-08-01] MEDS ORDERED: INSULIN, REG.(HUMAN) 100 U/ML VIAL SUBCU ONE ×3 (13:59→15:52)
[2018-08-01 16:43] VITALS: BP 116/61; O2SAT 95
[2018-08-01 16:56] VITALS: TEMP 997.9
== END 2018-08-01 16:57 | disposition home or self-care (01) ==
LOC: ER 10:27
DX: R10.9 Unspecified abdominal pain (principal); T85.628A Displacement of other specified internal prosthetic devices, implants and grafts, initial encounter; E11.65 Type 2 diabetes mellitus with hyperglycemia; F03.90 Unspecified dementia, unspecified severity, without behavioral disturbance, psychotic disturbance, mood disturbance, and anxiety; I10 Essential (primary) hypertension; Y83.8 Other surgical procedures as the cause of abnormal reaction of the patient, or of later complication, without mention of misadventure at the time of the procedure; Z90.49 Acquired absence of other specified parts of digestive tract; Z96.0 Presence of urogenital implants; Z79.82 Long term (current) use of aspirin; Z79.899 Other long term (current) drug therapy; Z79.4 Long term (current) use of insulin
CPT/HCPCS: 36416; 74177; 80048; 80076; 81001; 82948; 83690; 85025; J2270; J7030

== ENCOUNTER → 2018-12-14 | Outpatient (CLI) | payer MEDICARE, MEDICAID | LOC: GOCC 17:09 | PROVIDERS: ATTEND Internal Medicine | DX: N39.0 Urinary tract infection, site not specified (principal); N40.1 Benign prostatic hyperplasia with lower urinary tract symptoms; T81.40XA Infection following a procedure, unspecified, initial encounter; E11.9 Type 2 diabetes mellitus without complications ==

== ENCOUNTER 2018-12-15 10:36 | Inpatient (IN) | payer MEDICARE, MEDICAID ==
[2018-12-15] MEDS ORDERED: levoFLOXacin 500MG IV 500 MG in PREMIX BAG 1 BAG IVPB ONE (10:58)
[2018-12-15] MEDS ORDERED: cefTRIAXone SODIUM 1 GM in SODIUM CHL 0.9% 50ML MIN-BAG+ 50 ML IVPB ONE (10:58)
[2018-12-15] MEDS ORDERED: FLUCONAZOLE 100 MG TAB PO ONE (10:59)
[2018-12-15] MEDS ORDERED: cefTRIAXone SODIUM 1 GM VIAL ONE (11:29)
[2018-12-15] MEDS ORDERED: SODIUM CHL 0.9% 50ML MIN-BAG+ 50 ML IVPB ONE (11:29)
[2018-12-15] MEDS ORDERED: levoFLOXacin 500MG IV 100 ML IVPB ONE (11:30)
--- NOTE | 2018-12-15 11:35 | RAD ---
EXAM DESCRIPTION: Pelvis CLINICAL HISTORY: abd pain and fall COMPARISON: CT of the abdomen pelvis dated 30 May 2018 TECHNIQUE: AP pelvis FINDINGS: Degenerative changes are observed in the left hip. There is evidence of prior avulsion of a portion of the greater trochanter. No acute injury is seen. Calcification of the iliac arteries is observed. Mild degenerative changes are seen in the thoracic spine. IMPRESSION: No acute injury is detected. Electronically signed by: Luis Armando Hernandez MD 12/15/2018 11:33 AM CDT
--- NOTE | 2018-12-15 11:35 | RAD ---
EXAM DESCRIPTION: Hip,Left 2 Views CLINICAL HISTORY: 78 years Male, abd poain and fall COMPARISON: None available. FINDINGS: Diffuse osteopenia of the visualized bones noted. No acute fracture or dislocation. The femoral head is well contained in the acetabular fossa. Moderate left hip joint osteoarthritic changes are noted. Enthesopathy changes are noted at the greater trochanter. The overlying soft tissues appear grossly unremarkable. Incidental note is made of multiple calcified vessels in the left lower extremity. IMPRESSION: 1. No acute fracture or dislocation. 2. Moderate left hip joint osteoarthritic changes. Electronically signed by: Rudy Grande MD 12/15/2018 11:34 AM CDT
--- NOTE | 2018-12-15 11:37 | RAD ---
EXAM DESCRIPTION: Hip,Right 2 Views CLINICAL HISTORY: 78 years Male, abd poain and fall COMPARISON: None available. TECHNIQUE: 2 views of the right hip. FINDINGS: Mild diffuse osteopenia of the visualized bones noted. No acute fracture or dislocation. The right femoral head is well contained in the acetabular fossa. Moderate right hip joint osteoarthritic changes noted. The overlying soft tissues appear grossly unremarkable. Incidental note is made of heavily calcified lower extremity vessels in the right groin. IMPRESSION: 1. No acute fracture or dislocation. 2. Moderate right hip joint osteoarthritic changes. Electronically signed by: Rudy Grande MD 12/15/2018 11:36 AM CDT
--- NOTE | 2018-12-15 11:41 | RAD ---
EXAM DESCRIPTION: Knee,Left Complete CLINICAL HISTORY: 78 years Male, abd poain and fall TECHNIQUE: 3 views of the left knee were performed. COMPARISON: None available. FINDINGS: Diffuse osteopenia of the visualized bones noted. No acute fracture or dislocation. Severe tricompartmental osteoarthritic changes are noted with osteophytosis and severe medial compartment joint space narrowing. Probable small suprapatellar joint effusion. A 4 mm intra-articular loose bodies in the patellofemoral compartment joint space. The overlying soft tissues appear grossly unremarkable. IMPRESSION: 1. No acute fracture or dislocation. 2. Severe tricompartmental osteoarthritic changes with a 4 mm intra-articular loose body in the patellofemoral compartment joint space. Electronically signed by: Rudy Grande MD 12/15/2018 11:39 AM CDT
--- NOTE | 2018-12-15 11:42 | RAD ---
EXAM DESCRIPTION: Knee,Right Complete CLINICAL HISTORY: 78 years Male, abd poain and fall TECHNIQUE: 3 views of the right knee were performed. COMPARISON: None available. FINDINGS: Mild diffuse osteopenia of the visualized bones noted. No acute fracture or dislocation. Severe tricompartmental osteoarthritic changes noted with significant medial compartment joint space narrowing. Probable small suprapatellar joint effusion. The overlying soft tissues appear grossly unremarkable. IMPRESSION: 1. No acute fracture or dislocation. 2. Severe tricompartmental osteoarthritic changes. Electronically signed by: Rudy Grande MD 12/15/2018 11:41 AM CDT
--- NOTE | 2018-12-15 11:48 | RAD ---
EXAM DESCRIPTION: Abdomen Series CLINICAL HISTORY: 78 years Male, abd poain and fall COMPARISON: None. FINDINGS: CHEST: The trachea appears midline. Cardiomediastinal silhouette is within normal limits. The pulmonary vasculature appears unremarkable. No acute consolidation or pleural effusion. ABDOMEN: Single supine upright radiograph of the abdomen demonstrates nonobstructive bowel gas pattern. Moderate fecal burden is noted. No abnormal calcific lesions identified. The visualized lumbar spine demonstrates degenerative changes. Calcific density within the soft tissues along the lateral aspect left greater trochanter could represent calcific tendinitis. IMPRESSION: 1. No acute intra-abdominal process. 2. No acute cardiopulmonary process. Electronically signed by: Rudy Grande MD 12/15/2018 11:47 AM CDT
[2018-12-15] MEDS ORDERED: SODIUM CHLORIDE 0.9% 1000ML 1,000 ML IVS ONE (12:15)
[2018-12-15] MEDS ORDERED: MORPHINE SULFATE INJ 10 MG/ML VIAL IV ONE (12:26)
--- NOTE | 2018-12-15 12:29 | ED.PDOC ---
History of Present Illness - General Chief Complaint: Trauma Time Seen by Provider: 12/15/18 10:39 Source: patient Exam Limitations: no limitations - History of Present Illness Initial Comments: the patient is a 78-year-old male presenting to emergency room after having fallen at the longterm while trying to get himself out of bed. Normally he is a 2 person assist to get out of bed.. Over the last couple of days he has shown some increased altered mental status. He does have a Sanchez catheter and did have a urinalysis sent in yesterday. He has not been started on any medications to this point. The patient is reporting pain in bilateral knees and bilateral hips. Is also having some diffuse abdominal discomfort. The patient's speech is somewhat slurred and he seems somewhat confused. I'm uncertain how much of this is new and how much of this is old. He does have chronic pain issues apparently. He does have advanced osteoarthritic changes apparently. No history of any head injury. I see no evidence of any head injury. Timing/Duration: unsure Severity: moderate Improving Factors: nothing Worsening Factors: nothing Associated Symptoms: malaise, weakness Allergies/Adverse Reactions: Allergies NO KNOWN ALLERGY Allergy (Unverified 02/10/18 10:50) Home Medications: Ambulatory Orders Aspirin [Baby Aspirin] 81 mg PO QD 02/10/18 Atorvastatin Calcium [Lipitor] 20 mg PO BID 02/10/18 Finasteride 5 mg PO DAILY 02/10/18 Insulin Degludec [Tresiba Flextouch] 44 unit SC DAILY 02/10/18 Liraglutide [Victoza] 0.3 ml SC DAILY 02/10/18 Lisinopril [Prinivil] 20 mg PO DAILY 02/10/18 Metformin HCl [Metformin Hydrochloride E] 750 mg PO TID 02/10/18 Tamsulosin [Flomax] 0.4 mg PO QD 02/10/18 Acetaminophen [Tylenol] 325 mg PO PRN 08/01/18 Bisacodyl [Dulcolax] 10 mg VA PRN 08/01/18 Diclofenac Epolamine [Flector] 1.3 % TD Q12HR 08/01/18 Enoxaparin Sodium [Lovenox] 40 mg SUBCU QD 08/01/18 Famotidine 20 mg PO BID 08/01/18 HYDROcodone 5MG/APAP 325MG [Wilmer 5/325] 1 ea PO PRN 08/01/18 Insulin Detemir [Levemir] 25 unit SUBCU BID 08/01/18 Insulin Detemir [Levemir] 35 unit SUBCU BID 08/01/18 Insulin Lispro [HumaLOG] 5 unit SUBCU AC 08/01/18 Lactobacillus [Acidophilus Lactobacilli] 1 cap PO DAILY 08/01/18 Ondansetron HCl [Zofran] 4 mg PO PRN 08/01/18 Polyethylene Glycol 1450 [Polyethylene Glycol Nf] 17 gm PO PRN 08/01/18 Sennosides [Senna-Lax] 17.2 mg PO BEDTIME 08/01/18 raNITIdine HCL [Zantac] 150 mg PO BID 08/01/18 Review of Systems - Review of Systems Constitutional: States: no symptoms reported EENTM: States: no symptoms reported Respiratory: States: no symptoms reported Cardiology: States: no symptoms reported Gastrointestinal/Abdominal: States: abdominal pain Genitourinary: States: see HPI Musculoskeletal: States: see HPI - chronic pain issues Skin: States: no symptoms reported Neurological: States: see HPI Endocrine: States: no symptoms reported All other Systems: No Change from Baseline Past Medical History (General) - Patient Medical History Hx Seizures: No Hx Stroke: No Hx Dementia: Yes Hx Asthma: No Hx of COPD: No Hx Cardiac Disorders: No Hx Congestive Heart Failure: No Hx Pacemaker: No Hx Hypertension: Yes Hx Thyroid Disease: No Hx Diabetes: Yes Hx Cancer: No Hx of HIV: No Hx Hepatitis C: No Hx MRSA: No MRSA Source:: Wound - Vaccination History Hx Tetanus, Diphtheria Vaccination: No Hx Influenza Vaccination: No Hx Pneumococcal Vaccination: No - Social History Hx Tobacco Use: No Hx Alcohol Use: No Hx Substance Use: No Hx Substance Use Treatment: No Hx Depression: No Hx Physical Abuse: No Hx Emotional Abuse: No - Activities of Daily Living [facility] (if applicable[facility]:: [facility] - Female History Patient : No Family Medical History - Family History Father Family History: Unknown Physical Exam - Physical Exam General Appearance: Alert, Ill Appearing Eye Exam: bilateral normal Ears, Nose, Throat: normal pharynx - poor dentition chronically, other - chronic decreased hearing bilaterally Neck: non-tender, full range of motion Respiratory: lungs clear, normal breath sounds, no respiratory distress, no accessory muscle use Cardiovascular/Chest: normal peripheral pulses, no edema, tachycardia Peripheral Pulses: radial,right: 2+, radial,left: 2+, dorsalis pedis,right: 2+, dorsalis pedis,left: 2+ Gastrointestinal/Abdominal: soft, other - he is obese and does seem to have some mild diffuse discomfort to palpation. No definite rebound or peritoneal signs at this point. No definite palpable mass. Rectal Exam: deferred Back Exam: no CVA tenderness, no vertebral tenderness Extremity: no pedal edema, normal capillary refill, other - the patient does have diffuse bilateral lower extremity tenderness with palpation and pain is made worse with movement. No obvious crepitus. No obvious new deformity. He does have obvious chronic osteoarthritic changes. Neurologic: trim mounter II-XII nml as tested - hearing is chronically decreased, alert, other - the patient is very easily disoriented. He answers yes no questions fairly appropriately. He does appear delirious. Skin Exam: normal color Comments: Vital Signs - 24 hr 12/15/18 12/15/18 12/15/18 10:40 11:39 12:00 Temperature 97.5 F L Pulse Rate [ 122 H 121 H 119 H left brachial] Respiratory 24 20 20 Rate Blood Pressure 126/69 123/76 105/82 [left brachial] O2 Sat by Pulse 95 92 L 94 L Oximetry Progress - Progress Progress: 12/15/18 12:33 the patient is a 78-year-old male presenting with pain in his extremities after a fall at the longterm. X-rays of his extremities and pelvis show no evidence of any acute pathology from the bony standpoint. The patient does have some delirium that appears to be most likely due to urosepsis. The patient is significantly tachycardic with a markedly elevated white blood cell count and lactic acid level. He is receiving a liter of IV fluids and is being placed on Rocephin and Levaquin currently. Additionally his urine from yesterday did show significant yeast so he is also receiving a dose of Diflucan. His diabetes will need to be followed. The patient really is sore all over at this point. If he starts to develop more focalized pain then additional workup may be warranted. For now he will be admitted and treated for above issues. No evidence of any hypotension at this time however if that does start to develop then stress dose steroid dosing may be warranted. For now it is being avoided secondary to blood sugar issues. Blood cultures have been performed. Urine culture is in the works from yesterday. Sanchez catheter is in place. - Results/Orders Results/Orders: x-ray of the pelvis shows no acute injury. X-ray of the right knee, left knee, right hip, left hip show chronic osteoarthritic changes without evidence of acute injury. Acute abdominal series shows no obvious acute intra-abdominal pathology. He does have chronic changes of his lumbar spine. Laboratory Results - last 24 hr 12/15/18 12/15/18 12/15/18 11:03 11:03 11:03 WBC 15.2 H RBC 4.50 L Hgb 14.1 Hct 41.4 L MCV 92.0 MCH 31.3 H MCHC 34.0 RDW 14.1 Plt Count 264 MPV 7.9 Absolute Neuts (auto) 11.90 H Absolute Lymphs (auto) 1.40 Absolute Monos (auto) 1.70 H Absolute Eos (auto) 0.10 Absolute Basos (auto) 0.10 Neutrophils % 78.5 H Lymphocytes % 9.5 L Monocytes % 11.0 H Eosinophils % 0.5 L Basophils % 0.5 Sodium 132 L Potassium 4.6 Chloride 94 L Carbon Dioxide 22 Anion Gap 20.6 H BUN 24 H Creatinine 1.20 BUN/Creatinine Ratio 20.0 Random Glucose 282 H Serum Osmolality 278.8 Lactic Acid 4.0 H* Calcium 9.5 Magnesium Total Bilirubin 0.7 AST 27 ALT 21 Alkaline Phosphatase 127 H Creatine Kinase 60 CK-MB (CK-2) 5.3 H* CK-MB (CK-2) % Not Reportable Troponin I 0.03 Serum Total Protein 8.7 H Albumin 3.8 Globulin 4.9 H Albumin/Globulin Ratio 0.8 L Amylase 40 Lipase 12/15/18 11:03 WBC RBC Hgb Hct MCV MCH MCHC RDW Plt Count MPV Absolute Neuts (auto) Absolute Lymphs (auto) Absolute Monos (auto) Absolute Eos (auto) Absolute Basos (auto) Neutrophils % Lymphocytes % Monocytes % Eosinophils % Basophils % Sodium Potassium Chloride Carbon Dioxide Anion Gap BUN Creatinine BUN/Creatinine Ratio Random Glucose Serum Osmolality Lactic Acid Calcium Magnesium 1.6 L Total Bilirubin AST ALT Alkaline Phosphatase Creatine Kinase CK-MB (CK-2) CK-MB (CK-2) % Troponin I Serum Total Protein Albumin Globulin Albumin/Globulin Ratio Amylase Lipase 25 Departure - Departure Clinical Impression: Delirium, Lactic acidosis Urinary tract infection Qualifiers: Urinary tract infection type: acute cystitis Hematuria presence: without hematuria Qualified Code(s): N30.00 - Acute cystitis without hematuria Sepsis Qualifiers: Sepsis type: sepsis due to unspecified organism Qualified Code(s): A41.9 - Sepsis, unspecified organism Fall at longterm Qualifiers: Encounter type: initial encounter Qualified Code(s): W19.XXXA - Unspecified fall, initial encounter; Y92.129 - Unspecified place in longterm as the place of occurrence of the external cause Disposition: Admit Patient Condition: Serious Departure Forms: ED Discharge - Pt. Copy, Patient Portal Self Enrollment Referrals: Goran Guerra MD [Primary Care Provider] - 1-2 Weeks Home Medications: Ambulatory Orders Aspirin [Baby Aspirin] 81 mg PO QD 02/10/18 Atorvastatin Calcium [Lipitor] 20 mg PO BID 02/10/18 Finasteride 5 mg PO DAILY 02/10/18 Insulin Degludec [Tresiba Flextouch] 44 unit SC DAILY 02/10/18 Liraglutide [Victoza] 0.3 ml SC DAILY 02/10/18 Lisinopril [Prinivil] 20 mg PO DAILY 02/10/18 Metformin HCl [Metformin Hydrochloride E] 750 mg PO TID 02/10/18 Tamsulosin [Flomax] 0.4 mg PO QD 02/10/18 Acetaminophen [Tylenol] 325 mg PO PRN 08/01/18 Bisacodyl [Dulcolax] 10 mg VA PRN 08/01/18 Diclofenac Epolamine [Flector] 1.3 % TD Q12HR 08/01/18 Enoxaparin Sodium [Lovenox] 40 mg SUBCU QD 08/01/18 Famotidine 20 mg PO BID 08/01/18 HYDROcodone 5MG/APAP 325MG [Wilmer 5/325] 1 ea PO PRN 08/01/18 Insulin Detemir [Levemir] 25 unit SUBCU BID 08/01/18 Insulin Detemir [Levemir] 35 unit SUBCU BID 08/01/18 Insulin Lispro [HumaLOG] 5 unit SUBCU AC 08/01/18 Lactobacillus [Acidophilus Lactobacilli] 1 cap PO DAILY 08/01/18 Ondansetron HCl [Zofran] 4 mg PO PRN 08/01/18 Polyethylene Glycol 1450 [Polyethylene Glycol Nf] 17 gm PO PRN 08/01/18 Sennosides [Senna-Lax] 17.2 mg PO BEDTIME 08/01/18 raNITIdine HCL [Zantac] 150 mg PO BID 08/01/18 Decision To Admit - Decistion To Admit Decision to Admit Reason: Medical Nature Decision to Admit Date: 12/15/18 Decision to Admit Time: 12:37
--- NOTE | 2018-12-15 12:48 | HP ---
SUPERVISING PHYSICIAN: Goldy Ball M.D. CHIEF COMPLAINT: Fall at the longterm. HISTORY OF PRESENT ILLNESS: This is a 78 year-old male that came to the Emergency Room today after he fell while attempting to get out of his bed at the longterm. He is normally a 2 person assist and is unable to walk on his own. He is unable to do his daily care on his own and he was found in the floor at the longterm. He had had some changes in mental status over the last 2 day. In fact, had sent a urinalysis yesterday due to his altered mental status. No medications have been started. In the Emergency Room, the patient complained of bilateral hip pain as well as bilateral knee pain. There were no obvious injuries. He has a past history of some chronic pain issues as well as some lower extremity weakness. He did have somewhat slurred speech in the E. R. In the Emergency Room his vital signs were temperature of 97.5 with heart rate of 122, blood pressure 126/69, respiratory rate 24, O2 sat 95%. He was started on some fluids. Some laboratory was drawn. WBCs were 15,200 with hemoglobin 14.1, hematocrit 41.4. He has a left shift on his differential. Sodium 132, potassium 4.6, chloride 94, carbon dioxide 22, BUN 24, creatinine 1.2, glucose 282, lactic acid 4, magnesium 1.6. Alkaline phosphatase 127, CK-MB 5.3. Urinalysis from yesterday showed 100 urine protein, 1,000 urine glucose, large amount of urine blood, positive urine nitrites, small amount of urine leukocyte esterase, 30 to 40 urine RBCs, too numerous to count urine WBCs and 4+ urine bacteria. Blood cultures were drawn and culture is pending on his urine. Pelvis x-ray showed no acute injury. Right knee x-ray shows: 1. No acute fracture or dislocation. 2. Severe tricompartmental osteoarthritic changes. Left knee x-ray shows: 1. No scute fracture or dislocation. 2. Severe tricompartmental osteoarthritis changes with a 4 mm intraarticular loose body in the patellofemoral compartment joint space. Right hip x-ray shows: 1. No acute fracture or dislocation. 2. Moderate right hip joint osteoarthritic changes. Left hip x-ray shows: 1. No acute fracture or dislocation. 2. Moderate left hip joint osteoarthritic changes. Abdominal x-ray shows: 1. No acute intraabdominal process. 2. No acute cardiopulmonary process. The patient was also given some Rocephin as well as some Levaquin. He also got fluids and was given pain medication. I was called for hospital admission. PAST MEDICAL HISTORY: 1. Diabetes mellitus type 2 on both oral and insulin. 2. Hypertension on medications. 3. Gastroesophageal reflux disease. 4. Benign prostatic hypertrophy. 5. Chronic renal insufficiency. 6. Lower extremity weakness. 7. Chronic pain syndrome. PAST SURGICAL HISTORY: 1. Appendectomy. 2. Gallbladder surgery. CURRENT MEDICATIONS: 1. Acetaminophen. 2. Dulcolax. 3. Pepcid. 4. Humalog insulin. 5. Lactobacillus. 6. Zofran. 7. Polyethylene glycol. 8. Senna-Lax. 9. Aspirin. 10. Atorvastatin. 11. Levemir insulin. 12. Lisinopril. 13. Metformin. 14. Ranitidine. 15. Tamsulosin. ALLERGIES: NO KNOWN DRUG ALLERGIES. SOCIAL HISTORY: He lives at [facility] and has for about 6 months. There is no history of tobacco, alcohol or illicit drug use. REVIEW OF SYSTEMS: Unable to obtain due to the patient's mental status. PHYSICAL EXAMINATION: VITAL SIGNS: Temperature 100.3, heart rate 120, blood pressure 139/70, respiratory rate 20, O2 sat 97% on room air. GENERAL: This is a 78 year-old obese male who is lying in his hospital bed. He is in no acute distress. HEENT: Normocephalic and atraumatic. Pupils are equal and reactive. Oropharynx is clear. NECK: Supple without mass. RESPIRATORY: Diminished breath sounds throughout with no rhonchi, wheezing or crackles. CHEST: There is equal rise and fall of the chest with inspiration and expiration. CARDIOVASCULAR: Regular rate and rhythm. At times he is tachycardic. GASTROINTESTINAL: Abdomen is soft and rounded. He is obese. He is mildly tender to palpation in the suprapubic area. There is no CVA tenderness. Bowel sounds are positive. EXTREMITIES: No clubbing, cyanosis or edema. Bilateral pedal pulses are palpable at +2. NEUROLOGIC: He is awake but lethargic. Facial features are symmetrical, but it is difficult to wake him up to answer questions. He will answer some simple questions appropriately but goes back to sleep. SKIN: Warm and dry. LABORATORY: His followup lactic acid is 2.7. Amylase 40, lipase 25. All other labs and films are as per the History of Present Illness. ASSESSMENT: 1. Sepsis related to urinary tract infection with some altered mental status. His temperature has been 100.3, heart rate 123, respiratory rate 24, lactic acid 4 and WBCs of 15,200. 2. Weakness and altered mental status, status post same level fall after attempting to get out of bed at the longterm. His x-rays are negative. 3. Chronic pain syndrome on [place]. 4. Chronic renal insufficiency. 5. Diabetes mellitus type 2 on oral therapy and insulin therapy. 6. Gastroesophageal reflux disease. 7. Dementia. 8. Hypertension on medications. 9. History of benign prostatic hypertrophy with a chronic indwelling Sanchez catheter. PLAN: We will admit the patient to the hospital. I am giving him some additional fluids and I will recheck his lactic acid 2 hours after the prior lab report. I have continued his Rocephin and Levaquin as well as a PPI for ulcer prophylaxis and Lovenox for DVT prophylaxis. His home medications have been restarted. We will do a.c. and h.s. blood sugar checks with Humalog insulin coverage. He has received his antibiotics and will change out that Sanchez catheter. I have ordered lab for in the morning. Will encourage good pulmonary hygiene. Will continue to monitor closely and follow as needed. #[id number] [facility]
[2018-12-15] MEDS ORDERED: ONDANSETRON INJ 4 MG/2 ML VIAL IV PRN (13:00)
[2018-12-15] MEDS ORDERED: SODIUM CHLORIDE 0.9% (FLUSH) 10 ML SYG IV PRN (13:00)
[2018-12-15] MEDS ORDERED: ACETAMINOPHEN 325 MG TAB PO PRN (13:00)
[2018-12-15] MEDS ORDERED: MORPHINE SULFATE INJ 10 MG/ML VIAL IV PRN (13:00)
[2018-12-15] MEDS ORDERED: GLUCAGON INJ 1 MG VIAL SUBCU PRN (13:06)
[2018-12-15] MEDS ORDERED: DEXTROSE 50% 25 GM/50 ML SYG IV PRN (13:06)
[2018-12-15] MEDS: HYDROcodone 7.5MG/APAP 325MG 1 EA TAB PO ONE ×2 (15:04→15:17)
[2018-12-15] MEDS: SODIUM CHLORIDE 0.9% 1000ML 1,000 ML IVS PRN ×2 (15:06→23:21)
[2018-12-15] MEDS: HYDROcodone 7.5MG/APAP 325MG 1 EA TAB PO PRN ×2 (15:21→21:10)
[2018-12-15] MEDS ORDERED: ENOXAPARIN SODIUM 30 MG/0.3 ML SYG SUBCU ONE (18:58)
[2018-12-15] MEDS ORDERED: metFORMIN HCL 500 MG TAB ONE (18:58)
[2018-12-15] MEDS: INSULIN LISPRO 100 UNITS/ML PEN SUBCU SCH ×2 (19:13→21:21)
[2018-12-15] MEDS: ATORVASTATIN 20 MG TAB PO SCH (20:24)
[2018-12-15] MEDS: ENOXAPARIN SODIUM 30 MG/0.3 ML SYG SUBCU SCH (20:25)
[2018-12-15] MEDS: INSULIN DETEMIR 100 UNITS/ML PEN SUBCU SCH (21:22)
[2018-12-15] MEDS: NON-FORMULARY MEDICATION 1 EA MIS (Metformin Hcl [Metformin Hydrochloride E] 1,000 MG) PO SCH (21:22)
[2018-12-15] MEDS: SODIUM CHLORIDE 0.9% (FLUSH) 10 ML SYG IV SCH (21:22)
[2018-12-15] MEDS ORDERED: MAGNESIUM SULFATE PREMIX 2GM 2 GM in PREMIX BAG 1 BAG IVPB ONE (23:45)
[2018-12-16] MEDS ORDERED: MAGNESIUM SULFATE PREMIX 2GM 50 ML IVPB ONE (00:35)
[2018-12-16] MEDS: IV SET AND CAP CHANGE INJ INJ SCH (00:35)
[2018-12-16] MEDS: HYDROcodone 7.5MG/APAP 325MG 1 EA TAB PO PRN ×2 (03:27→10:16)
[2018-12-16] MEDS ORDERED: levoFLOXacin 250MG IV 50 ML IVPB ONE (04:15)
[2018-12-16] MEDS: levoFLOXacin 250MG IV 250 MG in PREMIX BAG 1 BAG IVPB SCH (05:38)
[2018-12-16] MEDS: PANTOPRAZOLE SODIUM TAB 40 MG PO SCH (05:54)
[2018-12-16] MEDS ORDERED: PANTOPRAZOLE SODIUM IV 40 MG VIAL IV SCH (06:30)
[2018-12-16] MEDS: INSULIN LISPRO 100 UNITS/ML PEN SUBCU SCH ×4 (07:25→21:29)
[2018-12-16] MEDS ORDERED: metFORMIN HCL 500 MG TAB ONE (08:46)
[2018-12-16] MEDS ORDERED: SODIUM CHL 0.9% 50ML MIN-BAG+ 50 ML IVPB ONE (08:46)
[2018-12-16] MEDS ORDERED: cefTRIAXone SODIUM 1 GM VIAL ONE (08:47)
[2018-12-16] MEDS: LISINOPRIL 10 MG TAB PO SCH (08:59)
[2018-12-16] MEDS: cefTRIAXone SODIUM 1 GM in SODIUM CHL 0.9% 50ML MIN-BAG+ 50 ML IVPB SCH (09:05)
[2018-12-16] MEDS: SODIUM CHLORIDE 0.9% (FLUSH) 10 ML SYG IV SCH ×2 (09:05→21:30)
[2018-12-16] MEDS: NON-FORMULARY MEDICATION 1 EA MIS (Metformin Hcl [Metformin Hydrochloride E] 1,000 MG) PO SCH (09:06)
[2018-12-16] MEDS: INSULIN DETEMIR 100 UNITS/ML PEN SUBCU SCH (09:24)
[2018-12-16] MEDS: SODIUM CHLORIDE 0.9% 1000ML 1,000 ML IVS PRN ×2 (10:16→19:16)
[2018-12-16] MEDS: ASPIRIN (CHEWABLE) 81 MG TAB PO SCH (10:16)
[2018-12-16] MEDS: TAMSULOSIN 0.4 MG CAP PO SCH (10:16)
[2018-12-16] MEDS: metFORMIN HCL 500 MG TAB PO SCH (17:40)
[2018-12-16] MEDS ORDERED: INSULIN DETEMIR 100 UNITS/ML PEN SUBCU SCH (21:00)
[2018-12-16] MEDS: ATORVASTATIN 20 MG TAB PO SCH (21:27)
[2018-12-16] MEDS: ENOXAPARIN SODIUM 30 MG/0.3 ML SYG SUBCU SCH (21:28)
--- NOTE | 2018-12-16 22:32 | PN ---
DATE: 12/16/18 SUPERVISING PHYSICIAN: Goldy Ball M.D. SUBJECTIVE: The patient is sitting up in bed. His nurse is his account planner. He continues complaints of his knees hurting, but this is not a new finding. He has knee pain quite frequently and has for many years. He still has a poor appetite, but has no complaints of nausea, vomiting, chest pain or shortness of breath. OBJECTIVE: VITAL SIGNS: Temperature 98.6, heart rate 106, blood pressure 156/83, respiratory rate 18, O2 sat 94% on room air. RESPIRATORY: Essentially clear to auscultation bilaterally. He is somewhat diminished at the bases. CARDIAC: Regular rate and rhythm. GASTROINTESTINAL: Abdomen is soft. It is rounded as he is obese. Non-tender. Bowel sounds are positive. NEUROLOGIC: He is awake and alert, oriented to person and place only. LABORATORY: WBCs are 11.4 with hemoglobin 12.7, hematocrit 36.6. Sodium is slightly low at 134 with potassium 4.3, chloride 100. Carbon dioxide 22, calcium 8.6, magnesium 1.8. Blood sugars have run between 187 and 270. Preliminary blood cultures show no growth after 24 hours. Urine culture is pending. All other labs and films have been reviewed via the EMR. ASSESSMENT: 1. Sepsis related to urinary tract infection with some altered mental status. His temperature has been 100.3, heart rate 123, respiratory rate 24, lactic acid 4 and WBCs of 15,200. 2. Weakness and altered mental status, status post same level fall after attempting to get out of bed at the custodial. His x-rays are negative. 3. Chronic pain syndrome on [place]. 4. Chronic renal insufficiency. 5. Diabetes mellitus type 2 on oral therapy and insulin therapy. 6. Gastroesophageal reflux disease. 7. Dementia. 8. Hypertension on medications. 9. History of benign prostatic hypertrophy with a chronic indwelling Sanchez catheter. PLAN: We will continue present supportive care, including his Rocephin and Levaquin. Will monitor his cultures as they become available. He is not eating so I have discontinued his long-acting insulin that was 45 units twice a day. We have decreased that to 10 units at h.s. He has also got coverage with his sliding scale. I have reordered some lab for in the morning. Will continue to monitor closely and follow as needed. [facility][id number]
[2018-12-17] MEDS: HYDROcodone 7.5MG/APAP 325MG 1 EA TAB PO PRN ×2 (00:39→04:18)
[2018-12-17] MEDS: SODIUM CHLORIDE 0.9% 1000ML 1,000 ML IVS PRN (03:42)
[2018-12-17] MEDS ORDERED: levoFLOXacin 250MG IV 50 ML IVPB ONE (04:59)
[2018-12-17] MEDS: levoFLOXacin 250MG IV 250 MG in PREMIX BAG 1 BAG IVPB SCH (05:42)
[2018-12-17] MEDS: PANTOPRAZOLE SODIUM TAB 40 MG PO SCH (06:28)
[2018-12-17] MEDS: INSULIN LISPRO 100 UNITS/ML PEN SUBCU SCH ×4 (07:56→21:19)
[2018-12-17] MEDS ORDERED: cefTRIAXone SODIUM 1 GM VIAL ONE (08:10)
[2018-12-17] MEDS ORDERED: SODIUM CHL 0.9% 50ML MIN-BAG+ 50 ML IVPB ONE (08:10)
[2018-12-17] MEDS ORDERED: MAGNESIUM SULFATE PREMIX 2GM 2 GM in PREMIX BAG 1 BAG IVPB ONE (08:22)
[2018-12-17] MEDS: ASPIRIN (CHEWABLE) 81 MG TAB PO SCH (08:28)
[2018-12-17] MEDS: cefTRIAXone SODIUM 1 GM in SODIUM CHL 0.9% 50ML MIN-BAG+ 50 ML IVPB SCH (08:29)
[2018-12-17] MEDS: TAMSULOSIN 0.4 MG CAP PO SCH (08:29)
[2018-12-17] MEDS: metFORMIN HCL 500 MG TAB PO SCH ×2 (08:29→17:23)
[2018-12-17] MEDS: SODIUM CHLORIDE 0.9% (FLUSH) 10 ML SYG IV SCH ×2 (08:30→21:21)
[2018-12-17] MEDS ORDERED: MAGNESIUM SULFATE PREMIX 2GM 50 ML IVPB ONE (08:35)
[2018-12-17] MEDS: LISINOPRIL 10 MG TAB PO SCH (08:37)
[2018-12-17] MEDS: KETOROLAC TROMETHAMINE INJ 30 MG/ML VIAL IV SCH ×2 (13:55→18:30)
--- NOTE | 2018-12-17 15:41 | PN ---
DATE: 12/17/18 SUPERVISING PHYSICIAN: Goldy Ball M.D. SUBJECTIVE: The patient is lying in bed. He is somewhat more alert today. His niece is at the bedside. He continues complaints of both bilateral knees that he has had for many years. He denies shortness of breath, nausea or vomiting. He does say he just has no appetite. His niece is quite worried that if he goes back to [facility] that he will fall out of his bed again. I told her that I would attempt to get a bed alarm ordered for him when he is discharged and that we are waiting on his urine cultures so he can be discharged hopefully on some oral antibiotics. OBJECTIVE: VITAL SIGNS: Temperature 98.7, heart rate 101, blood pressure 115/81, respiratory rate 16, O2 sat 95%. RESPIRATORY: Slightly diminished at the bases, but otherwise clear to auscultation. CARDIAC: Regular rate and rhythm. GASTROINTESTINAL: Abdomen is soft, nondistended, non-tender. Bowel sounds are positive. EXTREMITIES: No edema to his bilateral lower extremities but bilateral knees are tender to palpation. There is no edema or erythema. NEUROLOGIC: He is awake and alert. LABORATORY: Blood sugars have run between 211 and 322. Sodium is slightly low at 132, magnesium is low at 1.6. The remainder of his electrolytes are unremarkable. Preliminary blood cultures show no growth after 48 hours. Urine culture is pending. All other labs and films have been reviewed via the EMR. ASSESSMENT: 1. Sepsis related to urinary tract infection with some altered mental status. His temperature has been 100.3, heart rate 123, respiratory rate 24, lactic acid 4 and WBCs of 15,200. 2. Weakness and altered mental status, status post same level fall after attempting to get out of bed at the assisted. His x-rays are negative. 3. Chronic pain syndrome on [place]. 4. Chronic renal insufficiency. 5. Diabetes mellitus type 2 on oral therapy and insulin therapy. 6. Gastroesophageal reflux disease. 7. Dementia. 8. Hypertension on medications. 9. History of benign prostatic hypertrophy with a chronic indwelling Sanchez catheter. PLAN: We will continue present supportive care. Continue with his Rocephin and Levaquin until all of his culture results are available. He is eating some more and his blood sugars are up. I have increased his Levemir up to 15 units at night. We may need to continue to go up and we may need to adjust his Levemir at the assisted when he returns. He was getting 45 units twice daily. I will check his lab in the morning. I will also try to get an order for a bed alarm to [facility] to help monitor him getting out of bed so it may decrease his chances of falling. I am also going to give him 4 doses of Toradol IV to help with the osteoarthritis. Will continue to monitor closely and follow as needed. #[id number] [facility]
[2018-12-17] MEDS: INSULIN DETEMIR 100 UNITS/ML PEN SUBCU SCH (21:19)
[2018-12-17] MEDS: ENOXAPARIN SODIUM 30 MG/0.3 ML SYG SUBCU SCH (21:20)
[2018-12-17] MEDS: ATORVASTATIN 20 MG TAB PO SCH (21:20)
[2018-12-18] MEDS: KETOROLAC TROMETHAMINE INJ 30 MG/ML VIAL IV SCH ×2 (00:49→06:39)
[2018-12-18] MEDS: HYDROcodone 7.5MG/APAP 325MG 1 EA TAB PO PRN ×3 (02:06→20:19)
[2018-12-18] MEDS ORDERED: levoFLOXacin 250MG IV 50 ML IVPB ONE ×2 (05:30→19:41)
[2018-12-18] MEDS: levoFLOXacin 250MG IV 250 MG in PREMIX BAG 1 BAG IVPB SCH (05:36)
[2018-12-18] MEDS: PANTOPRAZOLE SODIUM TAB 40 MG PO SCH (06:13)
[2018-12-18] MEDS: INSULIN LISPRO 100 UNITS/ML PEN SUBCU SCH ×4 (07:11→21:18)
[2018-12-18] MEDS: metFORMIN HCL 500 MG TAB PO SCH ×2 (07:15→16:30)
[2018-12-18] MEDS ORDERED: SODIUM CHL 0.9% 50ML MIN-BAG+ 50 ML IVPB ONE (08:14)
[2018-12-18] MEDS ORDERED: cefTRIAXone SODIUM 1 GM VIAL ONE (08:14)
[2018-12-18] MEDS: cefTRIAXone SODIUM 1 GM in SODIUM CHL 0.9% 50ML MIN-BAG+ 50 ML IVPB SCH (08:23)
[2018-12-18] MEDS: LISINOPRIL 10 MG TAB PO SCH (08:24)
[2018-12-18] MEDS: ASPIRIN (CHEWABLE) 81 MG TAB PO SCH (08:24)
[2018-12-18] MEDS: TAMSULOSIN 0.4 MG CAP PO SCH (08:25)
[2018-12-18] MEDS: SODIUM CHLORIDE 0.9% (FLUSH) 10 ML SYG IV SCH ×2 (10:29→21:18)
[2018-12-18] MEDS ORDERED: ONDANSETRON INJ 4 MG/2 ML VIAL IV PRN (12:49)
[2018-12-18] MEDS: IV SET AND CAP CHANGE INJ INJ SCH (13:55)
[2018-12-18] MEDS: ENOXAPARIN SODIUM 30 MG/0.3 ML SYG SUBCU SCH (20:19)
[2018-12-18] MEDS: ATORVASTATIN 20 MG TAB PO SCH (20:19)
[2018-12-18] MEDS: INSULIN DETEMIR 100 UNITS/ML PEN SUBCU SCH (21:18)
[2018-12-19] MEDS: HYDROcodone 7.5MG/APAP 325MG 1 EA TAB PO PRN ×3 (01:16→20:29)
[2018-12-19] MEDS: levoFLOXacin 250MG IV 250 MG in PREMIX BAG 1 BAG IVPB SCH (05:30)
[2018-12-19] MEDS: PANTOPRAZOLE SODIUM TAB 40 MG PO SCH (06:18)
[2018-12-19] MEDS ORDERED: SODIUM CHL 0.9% 50ML MIN-BAG+ 50 ML IVPB ONE (07:29)
[2018-12-19] MEDS ORDERED: cefTRIAXone SODIUM 1 GM VIAL ONE (07:31)
[2018-12-19] MEDS: metFORMIN HCL 500 MG TAB PO SCH ×2 (08:00→16:48)
--- NOTE | 2018-12-19 08:10 | PN ---
SUPERVISING PHYSICIAN: Goldy Ball MD DATE: 12/18/18 SUBJECTIVE: The patient is lying in bed. He is nauseated, very difficult to get appropriates answers from him. He is weak. He does deny shortness of breath, nausea or vomiting although the patient does have an episode of vomiting while I am in the room. After his episode, he has no complaints of nausea, although I did order some Zofran. It is reported by the nursing staff that he is eating some, but has been taking Ensure drinks more than he is eating. OBJECTIVE: VITAL SIGNS: Temperature 97.6. Heart rate 84. Blood pressure 126/62. Respiratory rate 16. O2 saturation 96% on room air. RESPIRATORY: Diminished breath sounds at the bases. CARDIAC: Regular rate and rhythm. GASTROINTESTINAL: Abdomen is rounded, nondistended and soft. Bowel sounds are positive. NEUROLOGIC: He is awake and alert, oriented to person only. LABORATORY: WBCs have normalized to 8,300 with hemoglobin 11.6, hematocrit 33.5. Neutrophils 68.3%. Sodium slightly low at 132. The remainder of his electrolytes are within normal limits. Blood sugars have run between 202 and 268. Preliminary blood cultures show no growth after 3 days. Urine culture has come back Pseudomonas aeruginosa and is nice sensitive. All other labs and films have been reviewed via the EMR. ASSESSMENT: 1. Sepsis related to urinary tract infection with some altered mental status. His temperature has been 100.3, heart rate 123, respiratory rate 24, lactic acid 4 and WBCs of 15,200. 2. Weakness and altered mental status, status post same level fall after attempting to get out of bed at the correction. His x-rays are negative. 3. Chronic pain syndrome on [place]. 4. Chronic renal insufficiency. 5. Diabetes mellitus type 2 on oral therapy and insulin therapy. 6. Gastroesophageal reflux disease. 7. Dementia. 8. Hypertension on medications. 9. History of benign prostatic hypertrophy with a chronic indwelling Sanchez catheter. PLAN: We will continue present supportive care. He most likely can be discharged home tomorrow to [facility]. I am not sure what his baseline mental status is, but it does vary and some days he is much more alert than others. He does have chronic pain syndrome and his complaints of pain are not a new finding. His long-acting insulin at this time is at 15 units subcutaneously. If he is being discharged to [facility], his previous order was 45 units b.i.d. I believe his insulin will need to be adjusted at that time as his blood sugars are still quite high, but I do not believe he needs to be discharged on that amount of insulin. Hopefully he can be discharged to [facility] tomorrow with followup with his primary care physician, Dr. Guerra. We will continue to monitor the patient closely and follow as needed. #[id number] MTDD
[2018-12-19] MEDS: cefTRIAXone SODIUM 1 GM in SODIUM CHL 0.9% 50ML MIN-BAG+ 50 ML IVPB SCH (08:47)
[2018-12-19] MEDS: ASPIRIN (CHEWABLE) 81 MG TAB PO SCH (08:47)
[2018-12-19] MEDS: LISINOPRIL 10 MG TAB PO SCH (08:47)
[2018-12-19] MEDS: TAMSULOSIN 0.4 MG CAP PO SCH (08:47)
[2018-12-19] MEDS: INSULIN LISPRO 100 UNITS/ML PEN SUBCU SCH ×4 (08:50→22:51)
[2018-12-19] MEDS: SODIUM CHLORIDE 0.9% (FLUSH) 10 ML SYG IV SCH ×2 (08:57→20:18)
--- NOTE | 2018-12-19 19:25 | PN ---
DATE: 12/19/18 SUPERVISING PHYSICIAN: Dung Guerrero M.D. SUBJECTIVE: The patient is in no distress today. Does not indicate any pain or nausea or vomiting. He has had some weakness, however. OBJECTIVE: Blood pressure 138/84, heart rate 98, respiratory rate 16, temperature 98.5, oxygen saturation 94%. GENERAL: Mr. Diaz is chronically ill-appearing male patient but who is in no active distress currently. NEUROLOGIC: The patient is alert. LUNGS: Clear to auscultation bilaterally. CARDIOVASCULAR: Regular rate and rhythm. Normal S1 and S2. ABDOMEN: Soft, positive bowel sounds. GENITOURINARY: Exam is deferred. EXTREMITIES: Lower extremities have no significant edema. ASSESSMENT: 1. Sepsis secondary to Pseudomonas urinary tract infection. 2. Generalized weakness and altered mental status secondary to #1.a 3. Chronic pain syndrome on [place]. 4. Chronic renal insufficiency. 5. Diabetes mellitus type 2. 6. Gastroesophageal reflux disease. 7. Dementia. 8. Hypertension. 9. History of benign prostatic hypertrophy with chronic indwelling catheter. PLAN: Given the fact that his white count has continued to improve and overall he is continuing to improve, we can likely discharge back to [facility] tomorrow. I will coordinate with social work and case management to get that done the first thing in the morning. #[id number] MTDD
[2018-12-19] MEDS ORDERED: levoFLOXacin 250MG IV 50 ML IVPB ONE (19:34)
[2018-12-19] MEDS: ATORVASTATIN 20 MG TAB PO SCH (20:18)
[2018-12-19] MEDS: ENOXAPARIN SODIUM 30 MG/0.3 ML SYG SUBCU SCH (20:18)
[2018-12-19] MEDS: INSULIN DETEMIR 100 UNITS/ML PEN SUBCU SCH (22:52)
[2018-12-20] MEDS: levoFLOXacin 250MG IV 250 MG in PREMIX BAG 1 BAG IVPB SCH (05:53)
[2018-12-20] MEDS: HYDROcodone 7.5MG/APAP 325MG 1 EA TAB PO PRN (06:03)
[2018-12-20] MEDS: PANTOPRAZOLE SODIUM TAB 40 MG PO SCH (06:10)
[2018-12-20 06:27] VITALS: TEMP 98.1
[2018-12-20] MEDS: INSULIN LISPRO 100 UNITS/ML PEN SUBCU SCH (08:13)
[2018-12-20] MEDS: metFORMIN HCL 500 MG TAB PO SCH (08:22)
[2018-12-20] MEDS ORDERED: SODIUM CHL 0.9% 50ML MIN-BAG+ 50 ML IVPB ONE (08:34)
[2018-12-20] MEDS ORDERED: cefTRIAXone SODIUM 1 GM VIAL ONE (08:35)
[2018-12-20] MEDS: TAMSULOSIN 0.4 MG CAP PO SCH (09:38)
[2018-12-20] MEDS: LISINOPRIL 10 MG TAB PO SCH (09:38)
[2018-12-20] MEDS: ASPIRIN (CHEWABLE) 81 MG TAB PO SCH (09:38)
[2018-12-20] MEDS: cefTRIAXone SODIUM 1 GM in SODIUM CHL 0.9% 50ML MIN-BAG+ 50 ML IVPB SCH (09:39)
[2018-12-20] MEDS: SODIUM CHLORIDE 0.9% (FLUSH) 10 ML SYG IV SCH (09:39)
[2018-12-20 09:55] VITALS: O2SAT 96
[2018-12-20 11:15] VITALS: BP 149/78
--- NOTE | 2018-12-20 14:02 | DS ---
SUPERVISING PHYSICIAN: Dung Guerrero MD ADMISSION DIAGNOSIS: 1. Sepsis secondary to urinary tract infection. 2. Weakness and altered mental status. 3. Chronic pain syndrome on [place]. 4. Chronic renal insufficiency. 5. Diabetes mellitus, type 2, on oral and insulin therapy. 6. Gastroesophageal reflux disease. 7. Dementia. 8. Hypertension. 9. History of benign prostatic hypertrophy with chronic indwelling Sanchez catheter. DISCHARGE DIAGNOSIS: 1. Sepsis secondary to urinary tract infection. 2. Weakness and altered mental status. 3. Chronic pain syndrome on [place]. 4. Chronic renal insufficiency. 5. Diabetes mellitus, type 2, on oral and insulin therapy. 6. Gastroesophageal reflux disease. 7. Dementia. 8. Hypertension. 9. History of benign prostatic hypertrophy with chronic indwelling Sanchez catheter. HOSPITAL COURSE: This is a 78-year-old male patient who is a resident of a prison who came to the Emergency Room on 12/15/18 due to falling when attempting to get out of bed. His normal functional status is inability to walk on his own and being a two-person assist, however, he attempted to do this on his own. Nonetheless, in the Emergency Room his workup included labs and x-rays due to pain from the fall. X-rays were negative for any kind of fracture. His white count was elevated at 15,000. His urinalysis was consistent with urinary tract infection. Additionally, his lactate was elevated at 4. Therefore, he was admitted for sepsis secondary to urinary tract infection. Over that time, he was on Levaquin and Rocephin for the admission. His white count normalized and he remained afebrile. His mentation improved as well. Therefore, he is discharged today in stable condition. His urine did come back as Pseudomonas. Therefore, he was written for Levaquin as outpatient. Activity will be as tolerated. Diet will be diabetic diet. He will followup with his primary care physician in 1 to 2 weeks. #[id number] MTDD
== END 2018-12-20 10:55 | DRG 698 ==
LOC: ER 10:36 → MS 12:46
PROVIDERS: ADMIT Nurse Practitioner Acute Care; ATTEND Nurse Practitioner
DX: T83.511A Infection and inflammatory reaction due to indwelling urethral catheter, initial encounter (principal); A41.52 Sepsis due to Pseudomonas; N39.0 Urinary tract infection, site not specified; G89.4 Chronic pain syndrome; Z79.891 Long term (current) use of opiate analgesic; E11.22 Type 2 diabetes mellitus with diabetic chronic kidney disease; I12.9 Hypertensive chronic kidney disease with stage 1 through stage 4 chronic kidney disease, or unspecified chronic kidney disease; N18.9 Chronic kidney disease, unspecified; Z79.4 Long term (current) use of insulin; K21.9 Gastro-esophageal reflux disease without esophagitis; F03.90 Unspecified dementia, unspecified severity, without behavioral disturbance, psychotic disturbance, mood disturbance, and anxiety; N40.0 Benign prostatic hyperplasia without lower urinary tract symptoms; Z66 Do not resuscitate; Z79.82 Long term (current) use of aspirin; Z79.899 Other long term (current) drug therapy; E66.9 Obesity, unspecified; W06.XXXA Fall from bed, initial encounter; Y92.122 Bedroom in nursing home as the place of occurrence of the external cause; Z68.35 Body mass index [BMI] 35.0-35.9, adult; Y84.8 Other medical procedures as the cause of abnormal reaction of the patient, or of later complication, without mention of misadventure at the time of the procedure; Y92.9 Unspecified place or not applicable

== ENCOUNTER 2018-12-30 14:50 | Emergency (ER) | payer MEDICARE, MEDICAID ==
[2018-12-30] MEDS: FLUCONAZOLE 100 MG TAB PO ONE (15:37)
--- NOTE | 2018-12-30 15:42 | ED.PDOC ---
History of Present Illness - General Chief Complaint: Problem Stated Complaint: penis hurts Time Seen by Provider: 12/30/18 15:07 Source: patient Exam Limitations: no limitations, language barrier - tipple repairer was used - History of Present Illness Initial Comments: The patient is 78-year-old male presenting to the emergency room secondary to pain in his penis related to an indwelling Sanchez catheter. It is been irritating him for a few days. On examination the patient does have a mild balanitis and the Sanchez catheter is not affixed to his legs so it is pulling straight down causing some dissection down the urethral meatus. There is no bleeding. No other complaints. Timing/Duration: unsure Severity: mild Improving Factors: nothing Worsening Factors: nothing Associated Symptoms: denies symptoms Allergies/Adverse Reactions: Allergies NO KNOWN ALLERGY Allergy (Unverified 02/10/18 10:50) Home Medications: Ambulatory Orders Aspirin [Baby Aspirin] 81 mg PO QD 02/10/18 Atorvastatin Calcium [Lipitor] 20 mg PO BEDTIME 02/10/18 Lisinopril [Prinivil] 20 mg PO DAILY 02/10/18 Metformin HCl [Metformin Hydrochloride E] 1,000 mg PO BID 02/10/18 Tamsulosin [Flomax] 0.4 mg PO QD 02/10/18 Acetaminophen [Tylenol] 650 mg PO Q4HR PRN 08/01/18 Bisacodyl [Dulcolax] 10 mg MI PRN 08/01/18 Famotidine 20 mg PO BID 08/01/18 Insulin Lispro [Humalog] 5 unit SUBCU AC 08/01/18 Lactobacillus [Acidophilus Lactobacilli] 1 cap PO DAILY 08/01/18 Ondansetron HCl [Zofran] 4 mg PO Q6HR PRN 08/01/18 Polyethylene Glycol 1450 [Polyethylene Glycol Nf] 17 gm PO PRN PRN 08/01/18 Sennosides [Senna-Lax] 17.2 mg PO BEDTIME 08/01/18 raNITIdine HCL [Zantac] 150 mg PO BID 08/01/18 Insulin Detemir [Levemir Pen] 15 units SUBCU BEDTIME pen 12/20/18 levoFLOXacin [Levaquin] 500 mg PO DAILY 7 Days #7 tab 12/20/18 Review of Systems - Review of Systems Review of Systems: 12/30/18 15:42 review of systems is for new complaints only Constitutional: States: no symptoms reported EENTM: States: no symptoms reported Respiratory: States: no symptoms reported Cardiology: States: no symptoms reported Gastrointestinal/Abdominal: States: no symptoms reported Genitourinary: States: see HPI Musculoskeletal: States: no symptoms reported Skin: States: no symptoms reported Neurological: States: no symptoms reported Endocrine: States: no symptoms reported All other Systems: No Change from Baseline Past Medical History (General) - Patient Medical History Hx Seizures: No Hx Stroke: No Hx Dementia: Yes Hx Asthma: No Hx of COPD: No Hx Cardiac Disorders: No Hx Congestive Heart Failure: No Hx Pacemaker: No Hx Hypertension: Yes Hx Thyroid Disease: No Hx Diabetes: Yes Hx Cancer: No Hx of HIV: No Hx Hepatitis C: No Hx MRSA: No MRSA Source:: Wound - Vaccination History Hx Tetanus, Diphtheria Vaccination: No Hx Influenza Vaccination: No Hx Pneumococcal Vaccination: No - Social History Hx Tobacco Use: No Hx Alcohol Use: No Hx Substance Use: No Hx Substance Use Treatment: No Hx Depression: No Hx Physical Abuse: No Hx Emotional Abuse: No - Female History Patient : No Family Medical History - Family History Father Family History: Unknown Physical Exam - Physical Exam General Appearance: Alert, Comfortable, No apparent distress Eye Exam: bilateral normal Ears, Nose, Throat: hearing grossly normal, normal pharynx - poor dentition Neck: full range of motion, supple Respiratory: normal breath sounds, no respiratory distress, no accessory muscle use, respiratory distress Cardiovascular/Chest: normal peripheral pulses, no edema, other - egular rate Peripheral Pulses: radial,right: 2+, radial,left: 2+ Gastrointestinal/Abdominal: non tender - obese, soft Rectal Exam: other - see history of present illness. 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 Skin Exam: normal color - see history of present illness Progress - Progress Progress: 12/30/18 15:43 the patient is a 78-year-old male presenting to emergency room with irritation to the end of his penis both from gravity traction of the Sanchez catheter causing further urethral dissection downward as well as a mild balanitis. He is given a dose of Diflucan here. He needs to have the glans and foreskin clean daily with normal saline and gauze followed by a thin layer of triple antibiotic ointment at least for the next week and then as needed. Simple [place] to the tip of the penis and the Sanchez catheter can help reduce irritation. He will also be written for some lidocaine jelly that can be applied when the discomfort is at its worst. the Sanchez catheter needs to remain attached to his leg to prevent gravity traction and further urethral dissection. ER warnings were given. Follow-up with facility doctor early next week. Departure - Departure Clinical Impression: Balanitis Urethral trauma Qualifiers: Encounter type: subsequent encounter Qualified Code(s): S37.30XD - Unspecified injury of urethra, subsequent encounter Disposition: Discharge to SNF Condition: Fair Departure Forms: ED Discharge - Pt. Copy, Patient Portal Self Enrollment Instructions: Rolando (LISA) Diet: regular diet Activity: increase activity as tolerated Referrals: Goran Guerra MD [Primary Care Provider] - 1-2 Weeks Home Medications: Ambulatory Orders Aspirin [Baby Aspirin] 81 mg PO QD 02/10/18 Atorvastatin Calcium [Lipitor] 20 mg PO BEDTIME 02/10/18 Lisinopril [Prinivil] 20 mg PO DAILY 02/10/18 Metformin HCl [Metformin Hydrochloride E] 1,000 mg PO BID 02/10/18 Tamsulosin [Flomax] 0.4 mg PO QD 02/10/18 Acetaminophen [Tylenol] 650 mg PO Q4HR PRN 08/01/18 Bisacodyl [Dulcolax] 10 mg MI PRN 08/01/18 Famotidine 20 mg PO BID 08/01/18 Insulin Lispro [Humalog] 5 unit SUBCU AC 08/01/18 Lactobacillus [Acidophilus Lactobacilli] 1 cap PO DAILY 08/01/18 Ondansetron HCl [Zofran] 4 mg PO Q6HR PRN 08/01/18 Polyethylene Glycol 1450 [Polyethylene Glycol Nf] 17 gm PO PRN PRN 08/01/18 Sennosides [Senna-Lax] 17.2 mg PO BEDTIME 08/01/18 raNITIdine HCL [Zantac] 150 mg PO BID 08/01/18 Insulin Detemir [Levemir Pen] 15 units SUBCU BEDTIME pen 12/20/18 levoFLOXacin [Levaquin] 500 mg PO DAILY 7 Days #7 tab 12/20/18 Additional Instructions: the patient is a 78-year-old male presenting to emergency room with irritation to the end of his penis both from gravity traction of the Sanchez catheter causing further urethral dissection downward as well as a mild balanitis. He is given a dose of Diflucan here. He needs to have the glans and foreskin clean daily with normal saline and gauze followed by a thin layer of triple antibiotic ointment at least for the next week and then as needed. Simple [place] to the tip of the penis and the Sanchez catheter can help reduce irritation. He will also be written for some lidocaine jelly that can be applied when the discomfort is at its worst. the Sanchez catheter needs to remain attached to his leg to prevent gravity traction and further urethral dissection. ER warnings were given. Follow-up with facility doctor early next week.
[2018-12-30] MEDS ORDERED: NEOMYCIN-BACITRACIN-POLYMYXIN 0.9 GM UD TOP ONE (15:47)
[2018-12-30] MEDS: MAGNESIUM HYDROXIDE 30 ML UD PO ONE (16:03)
[2018-12-30 16:15] VITALS: O2SAT 95
[2018-12-30 16:35] VITALS: BP 134/92; TEMP 98
== END 2018-12-30 17:00 ==
LOC: ER 14:50
DX: S37.30XD Unspecified injury of urethra, subsequent encounter (principal); T83.098D Other mechanical complication of other urinary catheter, subsequent encounter; N48.1 Balanitis; I10 Essential (primary) hypertension; E11.9 Type 2 diabetes mellitus without complications; F03.90 Unspecified dementia, unspecified severity, without behavioral disturbance, psychotic disturbance, mood disturbance, and anxiety; Y84.8 Other medical procedures as the cause of abnormal reaction of the patient, or of later complication, without mention of misadventure at the time of the procedure; Z79.4 Long term (current) use of insulin; Z79.899 Other long term (current) drug therapy; Z79.82 Long term (current) use of aspirin

== ENCOUNTER → 2019-01-11 | Outpatient (CLI) | payer MEDICARE, MEDICAID ==
--- NOTE | 2019-01-12 10:46 | RAD ---
EXAM DESCRIPTION: KUB CLINICAL HISTORY: ABDOMINAL PAIN COMPARISON: 15 December 2018 TECHNIQUE: AP supine abdomen FINDINGS: Large amount of stool is observed throughout the colon. The bowel gas pattern is unremarkable. No organomegaly is seen. Calcific atherosclerotic changes are observed in the iliac vessels. Osteopenia and degenerative changes are observed in the lumbar spine. No urinary tract calcifications are detected. IMPRESSION: A large amount of stool is observed throughout the colon. The exam is otherwise unremarkable. Electronically signed by: Luis Armando Hernandez MD 01/12/2019 10:44 AM CDT
== END ==
LOC: YCFC.O 15:31
PROVIDERS: ATTEND Family Medicine
DX: R10.9 Unspecified abdominal pain (principal); R53.83 Other fatigue; E11.65 Type 2 diabetes mellitus with hyperglycemia

== ENCOUNTER 2019-02-09 23:11 | Emergency (ER) | payer MEDICARE, MEDICAID ==
[2019-02-09] MEDS ORDERED: SODIUM CHLORIDE 0.9% 1000ML 3,000 ML IVS ONE (23:16)
[2019-02-09] MEDS ORDERED: PIPERACILLIN/TAZOBACTAM 4.5 GM in SODIUM CHLORIDE 0.9% 100ML 100 ML IVPB ONE (23:19)
[2019-02-09] MEDS ORDERED: ACETAMINOPHEN SUPPOSITORY 650 MG PR ONE (23:24)
--- NOTE | 2019-02-09 23:27 | ED.PDOC ---
History of Present Illness - General Chief Complaint: GI Problem Stated Complaint: nausea vomiting fever Time Seen by Provider: 02/09/19 23:13 - History of Present Illness Initial Comments: 88 yo presenting from NH with reports of N/V and fever. Pt unable to provide history, no family or friends present. Pt's NH records reviewed. He is reportedly DNR but unknown code status. Pt has h/o sepsis, UTI's, indwelling ellis catheter, in addition to other issues. When asked if pt has pain, he denies, but seems confused. Allergies/Adverse Reactions: Allergies NO KNOWN ALLERGY Allergy (Verified 02/10/19 08:06) Home Medications: Ambulatory Orders Aspirin [Baby Aspirin] 81 mg PO QD 02/10/18 Atorvastatin Calcium [Lipitor] 20 mg PO BEDTIME 02/10/18 Lisinopril [Prinivil] 20 mg PO DAILY 02/10/18 Metformin HCl [Metformin Hydrochloride E] 1,000 mg PO BID 02/10/18 Tamsulosin [Flomax] 0.4 mg PO QD 02/10/18 Acetaminophen [Tylenol] 650 mg PO Q4HR PRN 08/01/18 Bisacodyl [Dulcolax] 10 mg MD PRN 08/01/18 Famotidine 20 mg PO BID 08/01/18 Insulin Lispro [Humalog] 5 unit SUBCU AC 08/01/18 Lactobacillus [Acidophilus Lactobacilli] 1 cap PO DAILY 08/01/18 Ondansetron HCl [Zofran] 4 mg PO Q6HR PRN 08/01/18 Polyethylene Glycol 1450 [Polyethylene Glycol Nf] 17 gm PO PRN PRN 08/01/18 Sennosides [Senna-Lax] 17.2 mg PO BEDTIME 08/01/18 raNITIdine HCL [Zantac] 150 mg PO BID 08/01/18 Insulin Detemir [Levemir Pen] 15 units SUBCU BEDTIME pen 12/20/18 levoFLOXacin [Levaquin] 500 mg PO DAILY 7 Days #7 tab 12/20/18 Acetaminophen [Tylenol] 325 mg PO Q4HR 02/10/19 Aspirin [Adult Aspirin Regimen] 81 mg PO DAILY 02/10/19 Atorvastatin Calcium [Lipitor] 20 mg PO BEDTIME 02/10/19 Famotidine 20 mg PO BID 02/10/19 Insulin Detemir [Levemir] 0 unit SUBCU BEDTIME 02/10/19 Insulin Lispro [HumaLOG] 0 unit SUBCU BID 02/10/19 Lactobacillus Reuteri [Biogaia Gastrus] 1 chw PO DAILY 02/10/19 Lisinopril 20 mg PO DAILY 02/10/19 Metformin HCl [Glucophage] 1,000 mg PO BID 02/10/19 Ondansetron [Ondansetron Odt] PRN 02/10/19 Sennosides [Senna] 8.6 mg PO BEDTIME 02/10/19 Tamsulosin HCl [Flomax] 0.4 mg PO DAILY 02/10/19 raNITIdine HCL [Zantac] 150 mg PO BID 02/10/19 Review of Systems - Review of Systems Review of Systems: 02/09/19 23:27 Unable to obtain reliable ROS due to acuity of pt's condition. Family Medical History - Family History Father Family History: Unknown Physical Exam - Physical Exam General Appearance: Lethargic, Obvious distress, Ill Appearing, Obese Neck: non-tender, full range of motion, supple, normal inspection Respiratory: chest non-tender, lungs clear, normal breath sounds Cardiovascular/Chest: no edema, no gallop, no JVD, no murmur, tachycardia Gastrointestinal/Abdominal: normal bowel sounds, non tender, soft, no organomegaly, no pulsatile mass, other - No obvious TTP, but again, pt seems confused Neurologic: no motor/sensory deficits, disoriented x 3 Skin Exam: normal color Lymphatic: no adenopathy Progress - Progress Progress: 02/09/19 23:40 [place] called NH. The N/V reportedly started w/i last several hours. BS checked prior to transport and >200. They confirmed pt DNR but it is unclear how aggressive we are to be re: central line and pressors. Since it isn't clear, we will proceed with aggressive care as needed. 02/10/19 00:38 Central line placed without difficulty (Rt fem). Will page hospitalist to admit for sepsis, UTI and dehydration. - Results/Orders Results/Orders: Laboratory Tests 02/09/19 02/09/19 02/09/19 23:18 23:18 23:18 WBC 22.7 H* RBC 4.48 L Hgb 13.7 L Hct 40.3 L MCV 90.0 MCH 30.6 MCHC 34.0 RDW 14.3 Plt Count 253 MPV 8.3 Absolute Neuts (auto) Not Reportable Absolute Lymphs (auto) Not Reportable Absolute Monos (auto) Not Reportable Absolute Eos (auto) Not Reportable Neutrophils % Not Reportable Neutrophils % (Manual) 74.0 Lymphocytes % Not Reportable Lymphocytes % (Manual) 7.0 Monocytes % Not Reportable Monocytes % (Manual) 8.0 Eosinophils % Not Reportable Basophils % Not Reportable Band Neutrophils 11.0 H* Eosinophils Basophils Metamyelocytes Myelocytes Promyelocytes Nucleated RBCs Differential Comment Hypersegmented Polys Blast Cells Plasma Cells Other Cell Type Hypochromia Toxic Granulation Dohle Bodies Jackelin Rods Platelet Estimate Normal Normal RBC Morphology Normal rbc morph Polychromasia Poikilocytosis Basophilic Stippling Anisocytosis Microcytosis Macrocytosis Spherocytes Sickle Cells Target Cells Ovalocytes Stomatocytes Helmet Cells [place] Bodies [place] Rings Thea Cells Acanthocytes (Spur) Rouleaux Schistocytes RBC Morph Comment PUBS Tear Drop Cells Sodium 137 Potassium 4.2 Chloride 97 L Carbon Dioxide 26 Anion Gap 18.2 H BUN 24 H Creatinine 1.16 BUN/Creatinine Ratio 20.7 H Random Glucose 301 H Serum Osmolality 289.1 Lactic Acid Calcium 9.2 Total Bilirubin 1.1 H AST 44 H ALT 31 Alkaline Phosphatase 180 H Troponin I < 0.02 B-Natriuretic Peptide 18.1 Serum Total Protein 7.8 Albumin 3.7 Globulin 4.1 H Albumin/Globulin Ratio 0.9 L Urine Color Urine Appearance Urine pH Ur Specific Silva Urine Protein Urine Glucose (UA) Urine Ketones Urine Blood Urine Nitrite Urine Bilirubin Urine Urobilinogen Ur Leukocyte Esterase Urine RBC Urine WBC Ur Epithelial Cells Amorphous Sediment Urine Bacteria Urine Yeast 02/09/19 02/09/19 02/09/19 23:18 23:18 23:45 WBC RBC Hgb Hct MCV MCH MCHC RDW Plt Count MPV Absolute Neuts (auto) Absolute Lymphs (auto) Absolute Monos (auto) Absolute Eos (auto) Neutrophils % Neutrophils % (Manual) Cancelled Lymphocytes % Lymphocytes % (Manual) Cancelled Monocytes % Monocytes % (Manual) Cancelled Eosinophils % Basophils % Band Neutrophils Cancelled Eosinophils Cancelled Basophils Cancelled Metamyelocytes Cancelled Myelocytes Cancelled Promyelocytes Cancelled Nucleated RBCs Cancelled Differential Comment Cancelled Hypersegmented Polys Cancelled Blast Cells Cancelled Plasma Cells Cancelled Other Cell Type Cancelled Hypochromia Cancelled Toxic Granulation Cancelled Dohle Bodies Cancelled Jackelin Rods Cancelled Platelet Estimate Cancelled Normal RBC Morphology Cancelled Polychromasia Cancelled Poikilocytosis Cancelled Basophilic Stippling Cancelled Anisocytosis Cancelled Microcytosis Cancelled Macrocytosis Cancelled Spherocytes Cancelled Sickle Cells Cancelled Target Cells Cancelled Ovalocytes Cancelled Stomatocytes Cancelled Helmet Cells Cancelled [place] Bodies Cancelled [place] Rings Cancelled Thea Cells Cancelled Acanthocytes (Spur) Cancelled Rouleaux Cancelled Schistocytes Cancelled RBC Morph Comment Cancelled PUBS Tear Drop Cells Cancelled Sodium Potassium Chloride Carbon Dioxide Anion Gap BUN Creatinine BUN/Creatinine Ratio Random Glucose Serum Osmolality Lactic Acid 2.2 Calcium Total Bilirubin AST ALT Alkaline Phosphatase Troponin I B-Natriuretic Peptide Serum Total Protein Albumin Globulin Albumin/Globulin Ratio Urine Color Yellow Urine Appearance Cloudy Urine pH 5.5 Ur Specific Silva 1.025 Urine Protein 30 Urine Glucose (UA) >=1000 H Urine Ketones 15 H Urine Blood Moderate H Urine Nitrite Positive H Urine Bilirubin Small H Urine Urobilinogen 1.0 Ur Leukocyte Esterase Small H Urine RBC 3-5 H Urine WBC 5-10 H Ur Epithelial Cells 0 Amorphous Sediment 2+ Urine Bacteria 2+ H Urine Yeast 3+ budding CLINICAL HISTORY: fever, sepsis COMPARISON: None. TECHNIQUE: XR CHEST 1 VIEW 02/09/2019 11:14 PM CDT FINDINGS: Cardiac silhouette is normal in size. The lungs are low in volume. There is bibasilar atelectasis. There may be small pleural effusions. There is no pneumothorax. There are no acute osseous findings. IMPRESSION: Bibasilar probable atelectasis. Underlying pneumonia is not excluded. Electronically signed by: Sam Gordillo MD 02/10/2019 12:04 AM CDT CLINICAL HISTORY: nausea vomitn, fever COMPARISON: None. TECHNIQUE: CT ABDOMEN PELVIS WITHOUT IV CONTRAST on 02/09/2019 11:30 PM CDT This exam was performed according to our departmental dose-optimization program, which includes automated exposure control, adjustment of the mA and/or kV according to patient size and/or use of iterative reconstruction technique. FINDINGS: Lower lungs are clear. Abdomen: The liver is normal in appearance. There is no biliary dilatation. Cholecystectomy was performed. The pancreas and spleen are normal in appearance. Adrenal glands are normal. Kidneys are mildly atrophic. There is a small midpole left renal cyst medially. There is a questionable punctate upper pole left renal calculus. There is no hydronephrosis. Abdominal aorta is normal in course and caliber without aneurysm. There is no free air. There is no retroperitoneal adenopathy. Pelvis: There is no bowel obstruction. Urinary bladder is decompressed with a Ellis catheter within. There is no free fluid. There are small fat-containing inguinal hernias. Appendix is absent. Skeleton: There are no acute osseous findings. No suspicious bony lesions. IMPRESSION: No definite acute process. Electronically signed by: Sam Gordillo MD 02/10/2019 12:05 AM CDT - EKG/XRAY/CT EKG: Sinus, Tachy, nonspecific ST T wave Chg Comments: Rate 142; no ST elevations or Q waves XRAY: chest Xray Comments: Incr markings but no distinct infiltrate/eff. No PTX. Poor insp effort. Procedures - Central Line Right Femoral vein Central Line Lumen: triple Central Line Procedure Prep: betadine prep, sterile drapes applied Anesthesia: local cc's of anesthesia: 5 Complications: none Central Line Post Position: sutured, good blood return Departure - Departure Clinical Impression: Dehydration, Acute cystitis, Indwelling Ellis catheter present, Uncontrolled type 2 diabetes mellitus, Septic shock Time of Disposition: 00:55 Disposition: Transfer to Hospital Condition: Fair Health Concerns: Stable condition Departure Forms: ED Discharge - Pt. Copy, Patient Portal Self Enrollment Diet: diabetic diet Referrals: Goran Guerra MD [Primary Care Provider] - 1-2 Weeks Home Medications: Ambulatory Orders Aspirin [Baby Aspirin] 81 mg PO QD 02/10/18 Atorvastatin Calcium [Lipitor] 20 mg PO BEDTIME 02/10/18 Lisinopril [Prinivil] 20 mg PO DAILY 02/10/18 Metformin HCl [Metformin Hydrochloride E] 1,000 mg PO BID 02/10/18 Tamsulosin [Flomax] 0.4 mg PO QD 02/10/18 Acetaminophen [Tylenol] 650 mg PO Q4HR PRN 08/01/18 Bisacodyl [Dulcolax] 10 mg MD PRN 08/01/18 Famotidine 20 mg PO BID 08/01/18 Insulin Lispro [Humalog] 5 unit SUBCU AC 08/01/18 Lactobacillus [Acidophilus Lactobacilli] 1 cap PO DAILY 08/01/18 Ondansetron HCl [Zofran] 4 mg PO Q6HR PRN 08/01/18 Polyethylene Glycol 1450 [Polyethylene Glycol Nf] 17 gm PO PRN PRN 08/01/18 Sennosides [Senna-Lax] 17.2 mg PO BEDTIME 08/01/18 raNITIdine HCL [Zantac] 150 mg PO BID 08/01/18 Insulin Detemir [Levemir Pen] 15 units SUBCU BEDTIME pen 12/20/18 levoFLOXacin [Levaquin] 500 mg PO DAILY 7 Days #7 tab 12/20/18 Acetaminophen [Tylenol] 325 mg PO Q4HR 02/10/19 Aspirin [Adult Aspirin Regimen] 81 mg PO DAILY 02/10/19 Atorvastatin Calcium [Lipitor] 20 mg PO BEDTIME 02/10/19 Famotidine 20 mg PO BID 02/10/19 Insulin Detemir [Levemir] 0 unit SUBCU BEDTIME 02/10/19 Insulin Lispro [HumaLOG] 0 unit SUBCU BID 02/10/19 Lactobacillus Reuteri [Biogaia Gastrus] 1 chw PO DAILY 02/10/19 Lisinopril 20 mg PO DAILY 02/10/19 Metformin HCl [Glucophage] 1,000 mg PO BID 02/10/19 Ondansetron [Ondansetron Odt] PRN 02/10/19 Sennosides [Senna] 8.6 mg PO BEDTIME 02/10/19 Tamsulosin HCl [Flomax] 0.4 mg PO DAILY 02/10/19 raNITIdine HCL [Zantac] 150 mg PO BID 02/10/19 Critical Care Note - Critical Care Note Total Time (mins): 35 Comments: Abnormal vitals; frequent rechecks; reviewing labs and imaging; reviewing NH documentation. Decision To Admit - Decistion To Admit Decision to Admit Date: 02/10/19 Decision to Admit Time: 00:39
[2019-02-09] MEDS ORDERED: PIPERACILLIN/TAZOBACTAM 2.25 GM VIAL IVPB ONE (23:28)
[2019-02-09] MEDS ORDERED: SODIUM CHLORIDE 0.9% 100ML 100 ML IVPB ONE (23:28)
--- NOTE | 2019-02-10 00:06 | RAD ---
CLINICAL HISTORY: fever, sepsis COMPARISON: None. TECHNIQUE: XR CHEST 1 VIEW 02/09/2019 11:14 PM CDT FINDINGS: Cardiac silhouette is normal in size. The lungs are low in volume. There is bibasilar atelectasis. There may be small pleural effusions. There is no pneumothorax. There are no acute osseous findings. IMPRESSION: Bibasilar probable atelectasis. Underlying pneumonia is not excluded. Electronically signed by: Sam Gordillo MD 02/10/2019 12:04 AM CDT
--- NOTE | 2019-02-10 00:07 | CT ---
CLINICAL HISTORY: nausea vomitn, fever COMPARISON: None. TECHNIQUE: CT ABDOMEN PELVIS WITHOUT IV CONTRAST on 02/09/2019 11:30 PM CDT This exam was performed according to our departmental dose-optimization program, which includes automated exposure control, adjustment of the mA and/or kV according to patient size and/or use of iterative reconstruction technique. FINDINGS: Lower lungs are clear. Abdomen: The liver is normal in appearance. There is no biliary dilatation. Cholecystectomy was performed. The pancreas and spleen are normal in appearance. Adrenal glands are normal. Kidneys are mildly atrophic. There is a small midpole left renal cyst medially. There is a questionable punctate upper pole left renal calculus. There is no hydronephrosis. Abdominal aorta is normal in course and caliber without aneurysm. There is no free air. There is no retroperitoneal adenopathy. Pelvis: There is no bowel obstruction. Urinary bladder is decompressed with a Sanchez catheter within. There is no free fluid. There are small fat-containing inguinal hernias. Appendix is absent. Skeleton: There are no acute osseous findings. No suspicious bony lesions. IMPRESSION: No definite acute process. Electronically signed by: Sam Gordillo MD 02/10/2019 12:05 AM CDT
[2019-02-10] MEDS ORDERED: SODIUM CHLORIDE 0.9% 1000ML 1,000 ML IVS ONE ×2 (00:52→00:53)
[2019-02-10] MEDS ORDERED: NOREPINEPHRINE BITARTRATE 4 MG/4 ML VIAL IVPB ONE (00:54)
[2019-02-10] MEDS ORDERED: DEXTROSE 5% 250ML 250 ML ONE (00:56)
[2019-02-10] MEDS ORDERED: NOREPINEPHRINE BITARTRATE 4 MG in DEXTROSE 5% 250ML 250 ML IVPB SCH (01:00)
[2019-02-10 02:10] VITALS: BP 104/79; O2SAT 90
[2019-02-10 02:28] VITALS: TEMP 98.7
== END 2019-02-10 02:35 | disposition short-term general hospital (02) ==
LOC: MERGE 23:11 → EDBD 23:11 → ER 23:11
DX: R65.21 Severe sepsis with septic shock (principal); N30.00 Acute cystitis without hematuria; E86.0 Dehydration; E11.65 Type 2 diabetes mellitus with hyperglycemia; R00.0 Tachycardia, unspecified; R11.2 Nausea with vomiting, unspecified; Z66 Do not resuscitate; E66.9 Obesity, unspecified; Z79.4 Long term (current) use of insulin; Z79.82 Long term (current) use of aspirin; Z79.899 Other long term (current) drug therapy; Z68.38 Body mass index [BMI] 38.0-38.9, adult
CPT/HCPCS: 36415; 71045; 74176; 80053; 81001; 83605; 83880; 84484; 85025; 87040; 87077; 87086; 87186; 87502; 93005; J2543; J7030; J7050; J7060

== ENCOUNTER 2019-04-05 11:41 | Inpatient (IN) | payer MEDICARE, MEDICAID ==
--- NOTE | 2019-04-05 12:20 | ED.PDOC ---
History of Present Illness - General Chief Complaint: Problem Stated Complaint: Penile discomfort Time Seen by Provider: 04/05/19 12:19 Source: patient Exam Limitations: other - History of Present Illness Initial Comments: 78 yo M who presents from [place] via EMS who reports that pt was brought in for abd pain. Hx limited 2/2 pt's participation in the exam. No hx of dementia doc umented. Pt will intermittently answer questions and at other times chooses not to. Allergies/Adverse Reactions: Allergies NO KNOWN ALLERGY Allergy (Verified 02/10/19 08:06) Home Medications: Ambulatory Orders RX: Aspirin [Baby Aspirin] 81 mg PO QD 02/10/18 RX: Atorvastatin Calcium [Lipitor] 20 mg PO BEDTIME 02/10/18 RX: Lisinopril [Prinivil] 20 mg PO DAILY 02/10/18 RX: Metformin HCl [Metformin Hydrochloride E] 1,000 mg PO BID 02/10/18 RX: Tamsulosin [Flomax] 0.4 mg PO QD 02/10/18 RX: Acetaminophen [Tylenol] 650 mg PO Q4HR PRN 08/01/18 RX: Bisacodyl [Dulcolax] 10 mg MT PRN 08/01/18 RX: Famotidine 20 mg PO BID 08/01/18 RX: Insulin Lispro [Humalog] 5 unit SUBCU AC 08/01/18 RX: Lactobacillus [Acidophilus Lactobacilli] 1 cap PO DAILY 08/01/18 RX: Ondansetron HCl [Zofran] 4 mg PO Q6HR PRN 08/01/18 RX: Polyethylene Glycol 1450 [Polyethylene Glycol Nf] 17 gm PO PRN PRN 08/01/18 RX: Sennosides [Senna-Lax] 17.2 mg PO BEDTIME 08/01/18 RX: raNITIdine HCL [Zantac] 150 mg PO BID 08/01/18 RX: Insulin Detemir [Levemir Pen] 15 units SUBCU BEDTIME pen 12/20/18 levoFLOXacin [Levaquin] 500 mg PO DAILY 7 Days #7 tab 12/20/18 Acetaminophen [Tylenol] 325 mg PO Q4HR 02/10/19 Aspirin [Adult Aspirin Regimen] 81 mg PO DAILY 02/10/19 Atorvastatin Calcium [Lipitor] 20 mg PO BEDTIME 02/10/19 Insulin Detemir [Levemir] 0 unit SUBCU BEDTIME 02/10/19 Insulin Lispro [HumaLOG] 0 unit SUBCU BID 02/10/19 Lactobacillus Reuteri [Biogaia Gastrus] 1 chw PO DAILY 02/10/19 Metformin HCl [Glucophage] 1,000 mg PO BID 02/10/19 RX: Famotidine 20 mg PO BID 02/10/19 RX: Lisinopril 20 mg PO DAILY 02/10/19 RX: Ondansetron [Ondansetron Odt] PRN 02/10/19 Sennosides [Senna] 8.6 mg PO BEDTIME 02/10/19 Tamsulosin HCl [Flomax] 0.4 mg PO DAILY 02/10/19 raNITIdine HCL [Zantac] 150 mg PO BID 02/10/19 Review of Systems - Review of Systems Review of Systems: 04/05/19 13:32 Unable to obtain Past Medical History (General) - Patient Medical History Hx Seizures: No Hx Stroke: No Hx Dementia: Yes Hx Asthma: No Hx of COPD: No Hx Cardiac Disorders: No Hx Congestive Heart Failure: No Hx Pacemaker: No Hx Hypertension: Yes Hx Thyroid Disease: No Hx Diabetes: Yes Hx Renal Disease: Yes - bladder dysfunction Hx Cancer: No Hx of HIV: No Hx Hepatitis C: No Hx MRSA: No MRSA Source:: Wound - Vaccination History Hx Tetanus, Diphtheria Vaccination: No Hx Influenza Vaccination: No Hx Pneumococcal Vaccination: No - Social History Hx Tobacco Use: No Hx Alcohol Use: No Hx Substance Use: No Hx Substance Use Treatment: No Hx Depression: No Hx Physical Abuse: No Hx Emotional Abuse: No - Female History Patient : No Family Medical History - Family History Father Family History: Unknown Physical Exam - Physical Exam General Appearance: Alert, Comfortable, Well Developed, Well Nourished, Other - Obese Eyes, Ears, Nose, Throat Exam: normal ENT inspection Neck: non-tender, full range of motion, supple Cardiovascular/Respiratory: no M/R/G, normal peripheral pulses, no JVD, normal breath sounds, no respiratory distress, tachycardia Gastrointestinal/Abdominal: normal bowel sounds, soft, no organomegaly, no pulsatile mass, tenderness - lower Male Genital Exam: other - No scrotal swelling, TTP, erythema. Urinary catheter in place with dissection downward of the urethra from pulling of the catheter that has been noted on previous visits Back Exam: no CVA tenderness Extremity: non-tender, no pedal edema Neurologic: alert, other - to orientation questions will not answer the year, as for the president states "I have no president." Skin Exam: normal color, warm/dry Lymphatic: no adenopathy Progress - Progress Progress: Vital Signs - 24 hr 04/05/19 04/05/19 04/05/19 11:48 12:51 13:30 Temperature 99.2 F Pulse Rate [ 120 H 113 H 107 H Left] Respiratory 22 22 22 Rate Blood Pressure 142/80 122/76 144/81 [Right Arm] O2 Sat by Pulse 90 L 90 L 94 L Oximetry 04/05/19 04/05/19 04/05/19 14:00 15:00 16:00 Temperature 98.4 F Pulse Rate [ 107 H 70 89 Left] Respiratory 20 20 20 Rate Blood Pressure 132/82 117/90 136/94 [Right Arm] O2 Sat by Pulse 94 L 96 95 Oximetry 04/05/19 17:00 Temperature Pulse Rate [ 102 H Left] Respiratory 18 Rate Blood Pressure 142/91 [Right Arm] O2 Sat by Pulse 94 L Oximetry 04/05/19 17:20 Pt's catheter replaced. Pt remains tachycardic despite fluids, has grown out resistant bacteria on previous urine cultures, will admit for IV antibiotics and hydration. Discussed with pt and family that is now at bedside, they agree with plan of care. 04/05/19 17:25 Discussed with Eddie midlevel admitting for hospitalist, accepts for for admission. Toña Munoz MD Emergency Medicine Physician Billing Number [id number] - Results/Orders Results/Orders: 04/05/19 12:19 Hold Metformin x 48Hrs [id number] 04/05/19 13:05 Urine Culture Stat 04/05/19 13:33 Sodium Chloride 0.9% (Flush) [Saline Flush Syringe] 10 ml IV PRN PRN 04/05/19 13:34 IV Care:Saline Lock per Protoc QSHIFT Telemetry .ONCE EKG Stat Pulse Ox Stat 04/05/19 13:55 BLOOD CULTURE Stat 04/05/19 17:27 ED Intent to Admit Routine 04/06/19 01:45 LACTIC ACID Q2H 04/06/19 03:45 LACTIC ACID Q2H 04/06/19 05:45 LACTIC ACID Q2H 04/06/19 07:45 LACTIC ACID Q2H 04/06/19 09:45 LACTIC ACID Q2H 04/06/19 11:45 LACTIC ACID Q2H Laboratory Results - last 24 hr 04/05/19 04/05/19 04/05/19 12:20 12:20 13:05 WBC 16.0 H RBC 4.14 L Hgb 12.8 L Hct 37.5 L MCV 90.5 MCH 30.9 MCHC 34.1 RDW 13.9 Plt Count 291 MPV 7.3 L Absolute Neuts (auto) 12.10 H Absolute Lymphs (auto) 1.80 Absolute Monos (auto) 1.80 H Absolute Eos (auto) 0.00 Absolute Basos (auto) 0.20 H Neutrophils % 76.0 Lymphocytes % 11.5 L Monocytes % 11.1 H Eosinophils % 0.3 L Basophils % 1.1 Sodium 136 Potassium 3.9 Chloride 96 L Carbon Dioxide 25 Anion Gap 18.9 H BUN 22 H Creatinine 1.02 BUN/Creatinine Ratio 21.6 H Random Glucose 259 H Serum Osmolality 284.2 Lactic Acid Calcium 9.0 Total Bilirubin 1.0 AST 24 ALT 30 Alkaline Phosphatase 276 H Serum Total Protein 8.0 Albumin 3.4 Globulin 4.6 H Albumin/Globulin Ratio 0.7 L Urine Color Yellow Urine Appearance Cloudy Urine pH 7.0 Ur Specific [place] 1.020 Urine Protein 100 H Urine Glucose (UA) 500 H Urine Ketones 15 H Urine Blood Small H Urine Nitrite Positive H Urine Bilirubin Small H Urine Urobilinogen 1.0 Ur Leukocyte Esterase Small H Urine RBC 3-5 H Urine WBC 10-20 H Ur Epithelial Cells 0-1 Amorphous Sediment 2+ Urine Bacteria 3+ H Urine Mucus Large 04/05/19 04/05/19 13:55 16:05 WBC RBC Hgb Hct MCV MCH MCHC RDW Plt Count MPV Absolute Neuts (auto) Absolute Lymphs (auto) Absolute Monos (auto) Absolute Eos (auto) Absolute Basos (auto) Neutrophils % Lymphocytes % Monocytes % Eosinophils % Basophils % Sodium Potassium Chloride Carbon Dioxide Anion Gap BUN Creatinine BUN/Creatinine Ratio Random Glucose Serum Osmolality Lactic Acid 1.2 1.2 Calcium Total Bilirubin AST ALT Alkaline Phosphatase Serum Total Protein Albumin Globulin Albumin/Globulin Ratio Urine Color Urine Appearance Urine pH Ur Specific [place] Urine Protein Urine Glucose (UA) Urine Ketones Urine Blood Urine Nitrite Urine Bilirubin Urine Urobilinogen Ur Leukocyte Esterase Urine RBC Urine WBC Ur Epithelial Cells Amorphous Sediment Urine Bacteria Urine Mucus CT abd/pelvis: EXAM DESCRIPTION: Abdomen/Pelvis w/Contrast CLINICAL HISTORY: pain COMPARISON: August 01, 2018 TECHNIQUE: Postcontrast CT images of the abdomen and pelvis are obtained using standard imaging protocol. Images are moderately degraded by patient breathing motion artifact. This exam was performed according to our departmental dose-optimization program, which includes automated exposure control, adjustment of the mA and/or kV according to patient size and/or use of iterative reconstruction technique . FINDINGS: Heart is mildly enlarged. Calcifications of the mitral valve annulus. Interstitial thickening and atelectasis in the right lower lobe. The liver, spleen, pancreas, and adrenal glands are unremarkable. Interval removal of cholecystostomy tube. Gallbladder is contracted around multiple calcified gallstones. No biliary tract obstruction. Mild calcific atherosclerotic disease. Stable small bilateral renal cortical cysts. No nephrolithiasis or ureteral obstruction. Sanchez catheter is seen in a contracted urinary bladder with circumferential urinary bladder wall thickening. Prostate is enlarged measuring 6.6 x 4.4 cm. Small left greater than right fat-containing inguinal hernias. Surgical suture line along the cecum without visualization of the appendix. Small hiatal hernia. Stomach poorly distended but unremarkable. No small bowel obstruction. Increased volume of formed fecal material throughout the colon without wall thickening or inflammatory changes. No significant diverticular disease. No pathologic lymphadenopathy. Osseous structures show no aggressive bony lesions. Degenerative changes of the spine, SI joints, and hips are seen. IMPRESSION: No acute findings on CT of the abdomen and pelvis. Moderate colon constipation or obstipation. Diffuse urinary bladder wall thickening could be secondary to poor distention of the urinary bladder with Sanchez catheter seen in place. Infectious or inflammatory process versus chronic bladder outlet obstruction could have a similar appearance. Gallbladder is contracted around multiple gallstones. Interval removal of cholecystostomy tube. Electronically signed by: Behzad Roberson MD 04/05/2019 2:08 PM MONOGRAM OPERATOR - EKG/XRAY/CT EKG: Sinus, Tachy, no ST T wave changes Departure - Departure Clinical Impression: Acute cystitis without hematuria, Volume depletion Time of Disposition: 17:25 Disposition: Admit Patient Condition: Fair Home Medications: Ambulatory Orders RX: Aspirin [Baby Aspirin] 81 mg PO QD 02/10/18 RX: Atorvastatin Calcium [Lipitor] 20 mg PO BEDTIME 02/10/18 RX: Lisinopril [Prinivil] 20 mg PO DAILY 02/10/18 RX: Metformin HCl [Metformin Hydrochloride E] 1,000 mg PO BID 02/10/18 RX: Tamsulosin [Flomax] 0.4 mg PO QD 02/10/18 RX: Acetaminophen [Tylenol] 650 mg PO Q4HR PRN 08/01/18 RX: Bisacodyl [Dulcolax] 10 mg MT PRN 08/01/18 RX: Famotidine 20 mg PO BID 08/01/18 RX: Insulin Lispro [Humalog] 5 unit SUBCU AC 08/01/18 RX: Lactobacillus [Acidophilus Lactobacilli] 1 cap PO DAILY 08/01/18 RX: Ondansetron HCl [Zofran] 4 mg PO Q6HR PRN 08/01/18 RX: Polyethylene Glycol 1450 [Polyethylene Glycol Nf] 17 gm PO PRN PRN 08/01/18 RX: Sennosides [Senna-Lax] 17.2 mg PO BEDTIME 08/01/18 RX: raNITIdine HCL [Zantac] 150 mg PO BID 08/01/18 RX: Insulin Detemir [Levemir Pen] 15 units SUBCU BEDTIME pen 12/20/18 levoFLOXacin [Levaquin] 500 mg PO DAILY 7 Days #7 tab 12/20/18 Acetaminophen [Tylenol] 325 mg PO Q4HR 02/10/19 Aspirin [Adult Aspirin Regimen] 81 mg PO DAILY 02/10/19 Atorvastatin Calcium [Lipitor] 20 mg PO BEDTIME 02/10/19 Insulin Detemir [Levemir] 0 unit SUBCU BEDTIME 02/10/19 Insulin Lispro [HumaLOG] 0 unit SUBCU BID 02/10/19 Lactobacillus Reuteri [Biogaia Gastrus] 1 chw PO DAILY 02/10/19 Metformin HCl [Glucophage] 1,000 mg PO BID 02/10/19 RX: Famotidine 20 mg PO BID 02/10/19 RX: Lisinopril 20 mg PO DAILY 02/10/19 RX: Ondansetron [Ondansetron Odt] PRN 02/10/19 Sennosides [Senna] 8.6 mg PO BEDTIME 02/10/19 Tamsulosin HCl [Flomax] 0.4 mg PO DAILY 02/10/19 raNITIdine HCL [Zantac] 150 mg PO BID 02/10/19
[2019-04-05] MEDS ORDERED: SODIUM CHLORIDE 0.9% 1000ML 1,000 ML IVS ONE (13:33)
[2019-04-05] MEDS ORDERED: CEFEPIME 2 GM in SODIUM CHL 0.9% 50ML MIN-BAG+ 50 ML IVPB ONE (13:35)
--- NOTE | 2019-04-05 13:51 | RAD ---
EXAM DESCRIPTION: Chest,1 View CLINICAL HISTORY: 90% on room air COMPARISON: May 12, 2018 IMPRESSION: Single AP portable upright view of the chest shows enlargement of the cardiac silhouette without pulmonary vascular congestion. Lungs are hypoaerated without acute appearing infiltrate or consolidation. Elevation the right hemidiaphragm is again seen with linear scarring or atelectasis in the right lung base. Severe right and moderate left degenerative changes of the shoulders are seen. . No obvious pleural effusion or pneumothorax is seen. Electronically signed by: Behzad Roberson MD 04/05/2019 1:50 PM SEWER SYSTEM SUPERVISOR
[2019-04-05] MEDS ORDERED: SODIUM CHL 0.9% 50ML MIN-BAG+ 50 ML IVPB ONE ×2 (13:57→19:32)
[2019-04-05] MEDS ORDERED: CEFEPIME 2 GM VIAL ONE ×2 (13:57→19:32)
--- NOTE | 2019-04-05 14:09 | CT ---
EXAM DESCRIPTION: Abdomen/Pelvis w/Contrast CLINICAL HISTORY: pain COMPARISON: August 01, 2018 TECHNIQUE: Postcontrast CT images of the abdomen and pelvis are obtained using standard imaging protocol. Images are moderately degraded by patient breathing motion artifact. This exam was performed according to our departmental dose-optimization program, which includes automated exposure control, adjustment of the mA and/or kV according to patient size and/or use of iterative reconstruction technique . FINDINGS: Heart is mildly enlarged. Calcifications of the mitral valve annulus. Interstitial thickening and atelectasis in the right lower lobe. The liver, spleen, pancreas, and adrenal glands are unremarkable. Interval removal of cholecystostomy tube. Gallbladder is contracted around multiple calcified gallstones. No biliary tract obstruction. Mild calcific atherosclerotic disease. Stable small bilateral renal cortical cysts. No nephrolithiasis or ureteral obstruction. Sanchez catheter is seen in a contracted urinary bladder with circumferential urinary bladder wall thickening. Prostate is enlarged measuring 6.6 x 4.4 cm. Small left greater than right fat-containing inguinal hernias. Surgical suture line along the cecum without visualization of the appendix. Small hiatal hernia. Stomach poorly distended but unremarkable. No small bowel obstruction. Increased volume of formed fecal material throughout the colon without wall thickening or inflammatory changes. No significant diverticular disease. No pathologic lymphadenopathy. Osseous structures show no aggressive bony lesions. Degenerative changes of the spine, SI joints, and hips are seen. IMPRESSION: No acute findings on CT of the abdomen and pelvis. Moderate colon constipation or obstipation. Diffuse urinary bladder wall thickening could be secondary to poor distention of the urinary bladder with Sanchez catheter seen in place. Infectious or inflammatory process versus chronic bladder outlet obstruction could have a similar appearance. Gallbladder is contracted around multiple gallstones. Interval removal of cholecystostomy tube. Electronically signed by: Behzad Robreson MD 04/05/2019 2:08 PM FLIGHT INSTRUCTOR
[2019-04-05] MEDS: SODIUM CHLORIDE 0.9% (FLUSH) 10 ML SYG IV PRN ×2 (14:22→20:36)
--- NOTE | 2019-04-05 18:03 | HP ---
SUPERVISING PHYSICIAN: Dung Guerrero M.D. CHIEF COMPLAINT: Bladder discomfort. HISTORY OF PRESENT ILLNESS: Mr. Diaz is a 78 year-old male patient that resides in a usp at [facility]. He was brought to the Emergency Room via EMS with complaints of abdominal pain more in his suprapubic region and his penis. The patient is a very poor historian, therefore the majority of the history and review of systems was obtained from the Emergency Room physician and past medical records. 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 A review of medical records show that the Sanchez catheter was put in, the best that I can figure out, around November this past year due to some phimosis and some urinary retention. It looks like he has been managed by Dr. Larose. I am not sure as to when the catheter was changed last. There was no documentation sent with him from the usp. A review of the past hospitalization did show that he grew out 3 different organisms that were multidrug resistant, including Pseudomonas. In the Emergency Room, they were able to actually do a Sanchez exchange and get a clean urine on him, and that urine showed it was positive for nitrites and had 3+ bacteria with 10 to 20 WBCs and 3 to 5 RBCs. The patient is also diabetic on insulin therapy. Vital signs showed that he was tachycardic when he came in with a heart rate in the 120s. He was normotensive with a blood pressure of 142/80 showing 22 respirations, satting 90% on room air with a low-grade temperature of 99.2. Laboratory studies indicate he had a leukocytosis of 16,000 with a left shift. Chemistries showed his renal function to be within normal limits with creatinine of 1.02, but his BUN was elevated at 22. Liver functions were all within normal limits. Lactic acid was normal. He did have an anion gap that was elevated at 18.9 with a low chloride but a normal CO2 level at 25. He was given a dose of Cefepime in the Emergency Room after blood cultures were completed. Urine culture was sent off for culture and sensitivity. He was given a liter of fluids which did result in some decrease in his heart rate, but it was felt due to the leukocytosis, past medical history and underlying co-morbidities, and indwelling Sanchez catheter, the patient was having possible developing sepsis due to urinary tract infection with multidrug resistant organisms. Given his history and current urinary tract infection requiring parenteral antibiotic, the Emergency Room physician requested the patient be placed in observation for initiation of antibiotics, close monitoring and further evaluation. The patient was placed in observation in stable condition. PAST MEDICAL HISTORY: Again obtained from past History and Physicals, last admission on 12/15/18. 1. Diabetes mellitus type 2 on both oral and insulin therapy. 2. Hypertension. 3. Gastroesophageal reflux disease. 4. Benign prostatic hypertrophy with chronic indwelling Sanchez catheter due to urinary retention. 5. Chronic constipation. 6. Chronic pain syndrome. 7. Lower extremity weakness. 8. Chronic renal insufficiency. PAST SURGICAL HISTORY: 1. Appendectomy. 2. Gallbladder surgery. HOME MEDICATIONS: Awaiting updated list from the usp. Please see that list once updated. ALLERGIES: NO KNOWN DRUG ALLERGIES. SOCIAL HISTORY: He lives at [facility] since the early part of this year. He has no history of tobacco, illicit drug or alcohol usage. REVIEW OF SYSTEMS: Unobtainable due to the patient's refusal to answer questions and mild dementia. PHYSICAL EXAMINATION: VITAL SIGNS: Temperature showing low-grade temperature of 99.2, pulse 120, blood pressure 142/80, respirations 22, satting 90% on room air. GENERAL: On admission to the Medical/Surgical floor, the patient is resting comfortably. Appeared to be in no acute distress. Still uncooperative with history and review of systems, but appeared to be resting. He was alert. HEENT: Tympanic membranes are clear bilaterally. Oropharynx is pink and moist without any lesions. NECK: Supple, non-tender. Full range of motion. CHEST: Lung sounds were clear to auscultation, just diminished towards the bases with no obvious rhonchi, wheezing or rales. CARDIOVASCULAR: Regular rate and rhythm without appreciable murmurs, gallops, or rubs. ABDOMEN: Obese but soft, non-tender. Positive bowel sounds. Has some tenderness in the suprapubic region. GENITOURINARY: Exam revealed no scrotal swelling with some mild tenderness with palpation to the penile area with some erythema with urinary catheter in place with some dissection extending down from the urethra from the patient having previously been pulling on the catheter which is a chronic issue. No obvious drainage or other signs of infection. BACK: Exam was without any tenderness. No CVA tenderness. No vertebral tenderness. EXTREMITIES: No cyanosis, clubbing, or edema. NEUROLOGIC: He is alert. He will answer basic questions but refuses to give any direct information. Does not show any obvious neurological deficits. Cranial nerves II - XII appear to be grossly intact. Facial features were symmetrical. Extraocular movements are within normal limits. There is no notable nystagmus. SKIN: Warm, pink and dry. LABORATORY: White count 16,000 with hemoglobin 12.8, hematocrit 37.5, platelet count 291,000. Differential showed a left shift. Chemistries showed anion gap that was elevated at 18.9, BUN 22, creatinine 1.02 with lactic acid 1.2. Liver functions were within normal limits. Urinalysis from a Sanchez catheter after replacement of initial indwelling Sanchez catheter showed 100 protein, 500 glucose, small amount of blood, positive nitrites, small amount of bilirubin, small amount of leukocyte esterase. Microscopic revealed 3 to 5 RBCs, 10 to 20 WBCs, no epithelials, 2+ amorphous material with 3+ bacteria and large amount of mucous. MICROBIOLOGY: Blood cultures are pending. Urine culture is pending. RADIOLOGY: Chest x-ray per radiology interpretation showed no obvious pleural effusion or pneumothorax. There is severe right moderate and left degenerative changes of the shoulders. Single view chest showed lungs were hypoaerated without any acute appearing infiltrate or consolidation. Abdominal and pelvis CT with contrast per radiology interpretation showed no acute findings on CT of the abdomen and pelvis. There was note of moderate colon constipation or obstipation as well as diffuse urinary bladder wall thickening which could be secondary to poor distention of the urinary bladder with Sanchez catheter seen in place. Infectious or inflammatory process versus chronic bladder outlet obstruction could have similar appearance. The gallbladder was noted to be contracted around multiple gallstones with interval removal of cholecystostomy tube. ASSESSMENT: 1. Sepsis secondary to urinary tract infection from previous indwelling Sanchez catheter prior to admission with the patient having a history of multidrug resistant organisms. 2. Diabetes mellitus type 2 on both oral and insulin therapy. 3. Hypertension. 4. Gastroesophageal reflux disease. 5. Benign prostatic hypertrophy with history of bladder outlet obstruction with phimosis requiring placement of indwelling Sanchez catheter, chronic. 6. Chronic renal insufficiency showing a baseline creatinine currently. 7. Lower extremity weakness. 8. Obstipation secondary to chronic pain management with severe colon constipation with no obvious signs of obstruction. 9. Chronic pain syndrome. PLAN: Mr. Diaz is going to be placed in observation initially for initiation of parenteral antibiotics to include vancomycin and Cefepime given the fact that he has had a history of multidrug resistant organisms with a variety lathe operator indwelling Sanchez catheter, and resides at a variety lathe operator care facility. Will resume his home medications once those have been updated and verified. He will be on deep venous thrombosis prophylaxis per protocol. Will go ahead and start him on some Dulcolax, MiraLAX and Milk of Magnesia in attempts to resolve the constipation. He did get a liter of fluids in the E. R. Will continue with fluids to help resolve some of the tachycardia hopefully. He will be on insulin sliding scale per protocol. I will anticipate his length of stay to be 1 to 2 days, possibly needing longer depending on clinical presentation, but given that he has a history of multidrug resistant organisms it is going to be harder to send him back to the usp until we have a full culture result to further target antibiotic therapy as in the past he has had Group B Strep, Pseudomonas and Citrobacter requiring multiple antibiotic coverage. Until we can transition to outpatient management will continue to monitor and treat as needed. #[id number] [facility]
[2019-04-05] MEDS ORDERED: ONDANSETRON INJ 4 MG/2 ML VIAL IV PRN (18:24)
[2019-04-05] MEDS ORDERED: SODIUM CHLORIDE 0.9% (FLUSH) 10 ML SYG IV PRN (18:24)
[2019-04-05] MEDS ORDERED: ALUM & MAG HYDROX-SIMETHICONE 30 ML UD PO PRN (18:24)
[2019-04-05] MEDS ORDERED: ACETAMINOPHEN 325 MG TAB PO PRN (18:24)
[2019-04-05] MEDS ORDERED: GLUCAGON INJ 1 MG VIAL SUBCU PRN (18:26)
[2019-04-05] MEDS ORDERED: DEXTROSE 50% 25 GM/50 ML SYG IV PRN (18:26)
[2019-04-05] MEDS ORDERED: VANCOMYCIN PER PHARMACY IVPB SCH (18:30)
[2019-04-05] MEDS: KCL 20 MEQ/NS 1,000 ML IVS PRN (18:34)
[2019-04-05] MEDS ORDERED: SODIUM CHLORIDE 0.9% 250ML 250 ML ONE (19:32)
[2019-04-05] MEDS ORDERED: VANCOMYCIN HCL INJ 500 MG VIAL ONE (19:32)
[2019-04-05] MEDS ORDERED: VANCOMYCIN HCL INJ 1,000 MG VIAL IVPB ONE (19:33)
[2019-04-05] MEDS: ENOXAPARIN SODIUM 40 MG/0.4 ML SYG SUBCU SCH (20:34)
[2019-04-05] MEDS: IV SET AND CAP CHANGE INJ INJ SCH (20:34)
[2019-04-05] MEDS: MAGNESIUM HYDROXIDE 30 ML UD PO SCH (20:34)
[2019-04-05] MEDS ORDERED: VANCOMYCIN HCL INJ 1,500 MG in SODIUM CHLORIDE 0.9% 250ML 250 ML IVPB ONE (21:00)
[2019-04-05] MEDS: INSULIN LISPRO 100 UNITS/ML PEN SUBCU SCH (21:23)
[2019-04-06] MEDS ORDERED: MAGNESIUM CITRATE 300 ML BTTL PO PRN (00:08)
[2019-04-06] MEDS ORDERED: SODIUM PHOS/BIPHOS ENEMA ADULT 133 ML BTTL PR PRN (00:08)
[2019-04-06] MEDS: CEFEPIME 1 GM in SODIUM CHLORIDE 0.9% 50ML 50 ML IVPB SCH ×2 (01:00→14:14)
[2019-04-06] MEDS: INSULIN LISPRO 100 UNITS/ML PEN SUBCU SCH ×4 (07:38→21:04)
[2019-04-06] MEDS: POLYETHYLENE GLYCOL 3350 17 GM PCKT PO SCH (08:23)
[2019-04-06] MEDS: ASPIRIN (ENTERIC COATED) 81 MG TAB PO SCH (08:23)
[2019-04-06] MEDS: LISINOPRIL 10 MG TAB PO SCH (08:23)
[2019-04-06] MEDS: BISACODYL TAB 5 MG TAB PO SCH (08:23)
[2019-04-06] MEDS: TAMSULOSIN 0.4 MG CAP PO SCH (08:27)
[2019-04-06] MEDS: LACTOBACILLUS 1 TAB PO SCH (08:28)
[2019-04-06] MEDS ORDERED: VANCOMYCIN HCL INJ 500 MG VIAL ONE ×2 (10:13→19:06)
[2019-04-06] MEDS ORDERED: SODIUM CHLORIDE 0.9% 250ML 250 ML ONE ×2 (10:14→19:07)
[2019-04-06] MEDS ORDERED: VANCOMYCIN HCL INJ 1,000 MG VIAL IVPB ONE ×2 (10:14→19:08)
[2019-04-06] MEDS: VANCOMYCIN HCL INJ 1,000 MG, VANCOMYCIN HCL INJ 250 MG in SODIUM CHLORIDE 0.9% 250ML 25... IVPB SCH ×2 (10:18→21:32)
[2019-04-06] MEDS: KCL 20 MEQ/NS 1,000 ML IVS PRN (10:18)
[2019-04-06] MEDS ORDERED: SODIUM CHLORIDE 0.9% 50ML 50 ML ONE ×2 (13:40→19:08)
[2019-04-06] MEDS ORDERED: CEFEPIME 2 GM VIAL ONE ×2 (13:40→19:07)
[2019-04-06] MEDS: MAGNESIUM HYDROXIDE 30 ML UD PO SCH ×3 (16:38→21:11)
[2019-04-06] MEDS ORDERED: INSULIN DETEMIR 100 UNITS/ML PEN SUBCU ONE (19:09)
--- NOTE | 2019-04-06 20:36 | PN ---
DATE: 04/06/19 SUPERVISING PHYSICIAN: Dung Guerrero M.D. SUBJECTIVE: The patient is sitting up in his bed. He is rather lethargic. He answers simple questions but does not go into any detail. It is reported by nursing staff that he has had no problems overnight. OBJECTIVE: VITAL SIGNS: Temperature 99.3, heart rate 103, blood pressure 131/76, respiratory rate 18, O2 saturation 95% on 2 liters nasal cannula. RESPIRATORY: Diminished at the bases. CARDIAC: Regular rate and rhythm. At times he is slightly tachycardic. GASTROINTESTINAL: Abdomen is soft, nondistended, non-tender. Bowel sounds are positive. NEUROLOGIC: He is awake, somewhat lethargic. Oriented to person and place. LABORATORY: WBCs have improved slightly to 11,300 with hemoglobin 12.4, chronic 37. Blood sugars have run between 202 and 311. Electrolytes are basically within normal limits with the exception of his chloride is slightly low at 97. Preliminary blood cultures show no growth after 24 hours. Urine culture is pending. All other labs and films have been reviewed via the EMR. ASSESSMENT: 1. Sepsis secondary to urinary tract infection from previous indwelling Sanchez catheter prior to admission. He has a history of multidrug resistant organisms. He had leukocytosis on admission of 16,000 with respiratory rate of 22, heart rate 112 and low-grade temperature of 99.5. 2. Diabetes mellitus type 2 on both oral and insulin therapy. 3. Hypertension. 4. Gastroesophageal reflux disease. 5. Benign prostatic hypertrophy with history of bladder outlet obstruction with phimosis requiring placement of indwelling Sanchez catheter, chronic. 6. Chronic renal insufficiency showing a baseline creatinine currently. 7. Lower extremity weakness. 8. Obstipation secondary to chronic pain management with severe colon constipation with no obvious signs of obstruction. 9. Chronic pain syndrome. PLAN: We will continue present supportive care. He continues to be constipated and he has not had a bowel movement, so I will give him another dose of Milk of Magnesia. I will also continue his antibiotics as previously ordered. Will continue to monitor for his urine culture. I have also encouraged the nursing staff to attempt good pulmonary hygiene. I have ordered lab for in the morning. Will continue to monitor closely and follow as needed. #[id number] [facility]
[2019-04-06] MEDS ORDERED: INSULIN DETEMIR 35 UNIT SUBCU SCH (21:00)
[2019-04-06] MEDS: ENOXAPARIN SODIUM 40 MG/0.4 ML SYG SUBCU SCH (21:03)
[2019-04-06] MEDS: SENNOSIDES 8.6 MG TAB PO SCH (21:04)
[2019-04-06] MEDS: ATORVASTATIN 20 MG TAB PO SCH (21:05)
[2019-04-07] MEDS: KCL 20 MEQ/NS 1,000 ML IVS PRN ×2 (00:50→16:05)
[2019-04-07] MEDS: CEFEPIME 1 GM in SODIUM CHLORIDE 0.9% 50ML 50 ML IVPB SCH ×2 (00:50→13:19)
[2019-04-07] MEDS: INSULIN LISPRO 100 UNITS/ML PEN SUBCU SCH ×4 (07:20→20:59)
[2019-04-07] MEDS ORDERED: VANCOMYCIN HCL INJ 500 MG VIAL ONE ×2 (08:04→19:08)
[2019-04-07] MEDS ORDERED: VANCOMYCIN HCL INJ 1,000 MG VIAL IVPB ONE ×2 (08:05→19:09)
[2019-04-07] MEDS ORDERED: SODIUM CHLORIDE 0.9% 250ML 250 ML ONE ×2 (08:05→19:08)
[2019-04-07] MEDS: POLYETHYLENE GLYCOL 3350 17 GM PCKT PO SCH (08:42)
[2019-04-07] MEDS: LACTOBACILLUS 1 TAB PO SCH (08:42)
[2019-04-07] MEDS: LISINOPRIL 10 MG TAB PO SCH (08:43)
[2019-04-07] MEDS: TAMSULOSIN 0.4 MG CAP PO SCH (08:43)
[2019-04-07] MEDS: BISACODYL TAB 5 MG TAB PO SCH (08:43)
[2019-04-07] MEDS: ASPIRIN (ENTERIC COATED) 81 MG TAB PO SCH (08:43)
[2019-04-07] MEDS: VANCOMYCIN HCL INJ 1,000 MG, VANCOMYCIN HCL INJ 500 MG in SODIUM CHLORIDE 0.9% 250ML 25... IVPB SCH ×2 (10:46→21:19)
[2019-04-07] MEDS ORDERED: SODIUM CHLORIDE 0.9% 50ML 50 ML ONE ×2 (13:05→19:09)
[2019-04-07] MEDS ORDERED: CEFEPIME 2 GM VIAL ONE ×2 (13:05→19:09)
--- NOTE | 2019-04-07 13:15 | PN ---
SUPERVISING PHYSICIAN: Dung Guerrero MD DATE: 04/07/19 SUBJECTIVE: The patient is sitting up in his bed. He is much more alert today than yesterday. He denies any shortness of breath, nausea, vomiting, diarrhea or constipation. OBJECTIVE: VITAL SIGNS: Temperature 98.6. Heart rate 96. Blood pressure 152/77. Respiratory rate 20. O2 saturation 92% on room air. RESPIRATORY: Diminished at the bases, but otherwise clear to auscultation. CARDIAC: Regular rate and rhythm. GASTROINTESTINAL: Abdomen is rounded. He is obese, but it is soft. Bowel sounds are positive. EXTREMITIES: No cyanosis, clubbing or edema. NEUROLOGIC: He is awake, alert and oriented times 3. LABORATORY: WBCs are 11,300 with hemoglobin 12, hematocrit 35.2. Blood sugars have run between 178 and 198. Sodium 133, chloride 96. All other values on his metabolic profile are unremarkable. Preliminary blood cultures show no growth after 24 hours. Urine culture is pending. All other labs and films have been reviewed via the EMR. ASSESSMENT: 1. Sepsis secondary to urinary tract infection from previous indwelling Sanchez catheter prior to admission. He has a history of multidrug resistant organisms. He had leukocytosis on admission of 16,000 with respiratory rate of 22, heart rate 112 and low-grade temperature of 99.5. 2. Diabetes mellitus, type 2, on both oral and insulin therapy. 3. Hypertension. 4. Gastroesophageal reflux disease. 5. Benign prostatic hypertrophy with history of bladder outlet obstruction with phimosis requiring placement of indwelling Sanchez catheter, chronic. 6. Chronic renal insufficiency showing a baseline creatinine currently. 7. Lower extremity weakness. 8. Obstipation secondary to chronic pain management with severe colon constipation with no obvious signs of obstruction. 9. Chronic pain syndrome. PLAN: We will continue present supportive care. At this point, due to his multidrug resistant history for urinary tract infections, I am awaiting his urine culture. As soon as that is available, he can be discharged on the appropriate antibiotic therapy. I have encouraged good pulmonary hygiene. We will hold on any labs for in the morning. We will continue to monitor the patient closely and follow as needed. [facility][id number] [facility]
[2019-04-07] MEDS: SENNOSIDES 8.6 MG TAB PO SCH (20:03)
[2019-04-07] MEDS: ENOXAPARIN SODIUM 40 MG/0.4 ML SYG SUBCU SCH (20:03)
[2019-04-07] MEDS: ATORVASTATIN 20 MG TAB PO SCH (20:03)
[2019-04-07] MEDS: INSULIN DETEMIR 100 UNITS/ML PEN SUBCU SCH (20:59)
[2019-04-08] MEDS: CEFEPIME 1 GM in SODIUM CHLORIDE 0.9% 50ML 50 ML IVPB SCH ×2 (01:32→14:26)
[2019-04-08] MEDS: KCL 20 MEQ/NS 1,000 ML IVS PRN (05:36)
[2019-04-08] MEDS ORDERED: VANCOMYCIN HCL INJ 500 MG VIAL ONE (07:26)
[2019-04-08] MEDS ORDERED: SODIUM CHLORIDE 0.9% 250ML 250 ML ONE (07:26)
[2019-04-08] MEDS ORDERED: VANCOMYCIN HCL INJ 1,000 MG VIAL IVPB ONE (07:27)
[2019-04-08] MEDS: INSULIN LISPRO 100 UNITS/ML PEN SUBCU SCH ×4 (08:05→21:13)
[2019-04-08] MEDS: POLYETHYLENE GLYCOL 3350 17 GM PCKT PO SCH (08:09)
[2019-04-08] MEDS: BISACODYL TAB 5 MG TAB PO SCH (08:10)
[2019-04-08] MEDS: LACTOBACILLUS 1 TAB PO SCH (08:10)
[2019-04-08] MEDS: TAMSULOSIN 0.4 MG CAP PO SCH (08:10)
[2019-04-08] MEDS: ASPIRIN (ENTERIC COATED) 81 MG TAB PO SCH (08:10)
[2019-04-08] MEDS: LISINOPRIL 10 MG TAB PO SCH (08:10)
[2019-04-08] MEDS: VANCOMYCIN HCL INJ 1,000 MG, VANCOMYCIN HCL INJ 500 MG in SODIUM CHLORIDE 0.9% 250ML 25... IVPB SCH (10:35)
[2019-04-08] MEDS ORDERED: MAGNESIUM HYDROXIDE 30 ML UD PO ONE (10:55)
[2019-04-08] MEDS ORDERED: SODIUM PHOS/BIPHOS ENEMA ADULT 133 ML BTTL PR ONE (10:57)
[2019-04-08] MEDS ORDERED: CEFEPIME 2 GM VIAL ONE ×2 (14:21→18:56)
[2019-04-08] MEDS ORDERED: SODIUM CHLORIDE 0.9% 50ML 50 ML ONE ×2 (14:22→18:56)
[2019-04-08] MEDS: IV SET AND CAP CHANGE INJ INJ SCH (20:34)
[2019-04-08] MEDS: SENNOSIDES 8.6 MG TAB PO SCH (20:34)
[2019-04-08] MEDS: ENOXAPARIN SODIUM 40 MG/0.4 ML SYG SUBCU SCH (20:35)
[2019-04-08] MEDS: ATORVASTATIN 20 MG TAB PO SCH (20:35)
[2019-04-08] MEDS: SODIUM CHLORIDE 0.9% (FLUSH) 10 ML SYG IV SCH (20:35)
[2019-04-08] MEDS: INSULIN DETEMIR 100 UNITS/ML PEN SUBCU SCH (21:12)
--- NOTE | 2019-04-08 22:28 | PN ---
DATE: 04/08/19 SUPERVISING PHYSICIAN: Dung Guerrero M.D. SUBJECTIVE: The patient is sitting up in his bed. He is eating his lunch. He has no complaints of shortness of breath, nausea, vomiting, diarrhea or constipation. He was constipated earlier and it required a digital disimpaction by the nurses, but he feels much better now. OBJECTIVE: VITAL SIGNS: Temperature 97.8, heart rate 94, blood pressure 131/84, respiratory rate 20, O2 saturation 94% on room air. RESPIRATORY: Diminished at the bases, otherwise clear to auscultation. CARDIAC: Regular rate and rhythm. GASTROINTESTINAL: Abdomen is soft. It is rounded. He is obese. Bowel sounds are positive. NEUROLOGIC: He is awake and alert. LABORATORY: Preliminary urine culture shows gram negative bacilli. There are no other labs or films to report at this time. ASSESSMENT: 1. Sepsis secondary to urinary tract infection from previous indwelling Sanchez catheter prior to admission. He has a history of multidrug resistant organisms. He had leukocytosis on admission of 16,000 with respiratory rate of 22, heart rate 112 and low-grade temperature of 99.5. Today's urine culture shows gram negative bacilli. 2. Diabetes mellitus, type 2, on both oral and insulin therapy. 3. Hypertension. 4. Gastroesophageal reflux disease. 5. Benign prostatic hypertrophy with history of bladder outlet obstruction with phimosis requiring placement of indwelling Sanchez catheter, chronic. 6. Chronic renal insufficiency showing a baseline creatinine currently. 7. Lower extremity weakness. 8. Obstipation secondary to chronic pain management with severe colon constipation. He required digital disimpaction today after multiple rounds of laxatives. 9. Chronic pain syndrome. PLAN: We will continue present supportive care. At this point, I am only waiting on the urine culture to be finalized as he has a significant history of multidrug resistant organisms in his previous urinalysis. I did discontinue his vancomycin today and hopefully the cultures with sensitivities will be back tomorrow and we can discharge him on the appropriate antibiotic to [facility]. Otherwise will continue to monitor closely and follow as needed. [facility][id number] [facility]
[2019-04-09] MEDS: CEFEPIME 1 GM in SODIUM CHLORIDE 0.9% 50ML 50 ML IVPB SCH ×2 (00:47→13:13)
[2019-04-09 06:07] VITALS: TEMP 98.2
[2019-04-09] MEDS: INSULIN LISPRO 100 UNITS/ML PEN SUBCU SCH ×2 (07:32→11:20)
[2019-04-09] MEDS: BISACODYL TAB 5 MG TAB PO SCH (09:19)
[2019-04-09] MEDS: LISINOPRIL 10 MG TAB PO SCH (09:19)
[2019-04-09] MEDS: ASPIRIN (ENTERIC COATED) 81 MG TAB PO SCH (09:19)
[2019-04-09] MEDS: POLYETHYLENE GLYCOL 3350 17 GM PCKT PO SCH (09:19)
[2019-04-09] MEDS: TAMSULOSIN 0.4 MG CAP PO SCH (09:20)
[2019-04-09] MEDS: SODIUM CHLORIDE 0.9% (FLUSH) 10 ML SYG IV SCH (09:20)
[2019-04-09] MEDS: LACTOBACILLUS 1 TAB PO SCH (09:21)
[2019-04-09 11:08] VITALS: BP 118/75; O2SAT 93
[2019-04-09] MEDS ORDERED: SULFA/TRIMETH 800/160 (DS) TAB 1 EA TAB ONE (13:10)
[2019-04-09] MEDS ORDERED: SULFA/TRIMETH 800/160 (DS) TAB 1 EA TAB PO ONE (13:10)
--- NOTE | 2019-04-13 09:54 | DS ---
SUPERVISING PHYSICIAN: Dung Guerrero MD DISCHARGE DIAGNOSIS: 1. Sepsis secondary to urinary tract infection from previous indwelling Sanchez catheter prior to admission. He has a history of multidrug resistant organisms. He had leukocytosis on admission of 16,000 with respiratory rate of 22, heart rate 112 and low-grade temperature of 99.5. Today's urine culture shows gram negative bacilli. 2. Diabetes mellitus, type 2, on both oral and insulin therapy. 3. Hypertension. 4. Gastroesophageal reflux disease. 5. Benign prostatic hypertrophy with history of bladder outlet obstruction with phimosis requiring placement of indwelling Sanchez catheter, chronic. 6. Chronic renal insufficiency showing a baseline creatinine currently. 7. Lower extremity weakness. 8. Obstipation secondary to chronic pain management with severe colon constipation. He required digital disimpaction today after multiple rounds of laxatives. 9. Chronic pain syndrome. HISTORY OF PRESENT ILLNESS: Mr. Diaz is a 78 year-old male patient that resides in a shelter at [facility]. He was brought to the Emergency Room via EMS with complaints of abdominal pain more in his suprapubic region and his penis. The patient is a very poor historian, therefore the majority of the history and review of systems was obtained from the Emergency Room physician and past medical records. The patient has a history of a assisted indwelling Sanchez catheter. A review of medical records show that the Sanchez catheter was put in, the best that I can figure out, around November this past year due to some phimosis and some urinary retention. It looks like he has been managed by Dr. Larose. I am not sure as to when the catheter was changed last. There was no documentation sent with him from the shelter. A review of the past hospitalization did show that he grew out 3 different organisms that were multidrug resistant, including Pseudomonas. In the Emergency Room, they were able to actually do a Sanchez exchange and get a clean urine on him, and that urine showed it was positive for nitrites and had 3+ bacteria with 10 to 20 WBCs and 3 to 5 RBCs. The patient is also diabetic on insulin therapy. Vital signs showed that he was tachycardic when he came in with a heart rate in the 120s. He was normotensive with a blood pressure of 142/80 showing 22 respirations, satting 90% on room air with a low-grade temperature of 99.2. Laboratory studies indicate he had a leukocytosis of 16,000 with a left shift. Chemistries showed his renal function to be within normal limits with creatinine of 1.02, but his BUN was elevated at 22. Liver functions were all within normal limits. Lactic acid was normal. He did have an anion gap that was elevated at 18.9 with a low chloride but a normal CO2 level at 25. He was given a dose of Cefepime in the Emergency Room after blood cultures were completed. Urine culture was sent off for culture and sensitivity. He was given a liter of fluids which did result in some decrease in his heart rate, but it was felt due to the leukocytosis, past medical history and underlying co-morbidities, and indwelling Sanchez catheter, the patient was having possible developing sepsis due to urinary tract infection with multidrug resistant organisms. Given his history and current urinary tract infection requiring parenteral antibiotic, the Emergency Room physician requested the patient be placed in observation for initiation of antibiotics, close monitoring and further evaluation. The patient was placed in observation in stable condition. HOSPITAL COURSE: The patient was admitted to the hospital for initiation of parenteral antibiotics to include vancomycin and cefepime due to his history of multidrug resistant organism and due to his long-term indwelling catheter as well as he resides in a long-term care facility. His home medications were re- started. He was also placed on some Dulcolax, MiraLAX and Milk of Magnesia due to his chronic constipation. At one point, he did have to be manually disimpacted. He received some judicious fluids over the next few days. He had sliding scale insulin per protocol. His urine culture initially came back as a gram negative species, so the vancomycin was discontinued. Today, his urine culture was available and it showed Proteus mirabilis. It was sensitive to sulfa drugs. The patient will be discharged back to [facility] on Bactrim. LABORATORY: His lab initially showed a white count of 16,000 and prior to discharge, it was 11,300. Hemoglobin and hematocrit remained stable at 12 and 35.2. His blood sugars initially were high in the 300s and after starting his home medications, it remained around 200. His electrolytes were basically within normal limits. RADIOLOGY: His abdomen and pelvis CT is per the history of present illness. His chest x-ray is also per the history of present illness. DISCHARGE PLAN: The patient will be discharged to [facility] in good condition. He is to resume his usual diet, his usual activities and his previous medications. He is to followup with Dr. Guerra, his primary care physician, within 1 to 2 weeks. In addition to his routine medications, he is also to have 10 days of Bactrim. He is to return to the hospital or followup with Dr. Guerra for any problems or complications. DISCHARGE MEDICATIONS: 1. Flomax. 2. Lisinopril. 3. Zofran. 4. Dulcolax. 5. Zantac. 6. Senna-Lax. 7. Lactobacillus. 8. Polyethylene glycol. 9. Senna. 10. Humalog. 11. Levemir 12. Lipitor. 13. Adult aspirin. 14. Tylenol. 15. Mag citrate. 16. Fleet's enema. 17. Bactrim. #[id number] [facility]
== END 2019-04-09 13:35 | DRG 698 ==
LOC: ER 11:41 → MS 17:45 → OBSVTOIN 17:49
PROVIDERS: ADMIT Nurse Practitioner Family; ATTEND Nurse Practitioner Acute Care
PROC: BW211ZZ Computerized Tomography (CT Scan) of Abdomen and Pelvis using Low Osmolar Contrast (ICD-10-PCS; principal; 2019-04-05)
DX: T83.511A Infection and inflammatory reaction due to indwelling urethral catheter, initial encounter (principal); A41.9 Sepsis, unspecified organism; N39.0 Urinary tract infection, site not specified; E11.22 Type 2 diabetes mellitus with diabetic chronic kidney disease; I12.9 Hypertensive chronic kidney disease with stage 1 through stage 4 chronic kidney disease, or unspecified chronic kidney disease; K21.9 Gastro-esophageal reflux disease without esophagitis; N40.1 Benign prostatic hyperplasia with lower urinary tract symptoms; R33.8 Other retention of urine; K59.09 Other constipation; G89.4 Chronic pain syndrome; R29.898 Other symptoms and signs involving the musculoskeletal system; N18.9 Chronic kidney disease, unspecified; F03.90 Unspecified dementia, unspecified severity, without behavioral disturbance, psychotic disturbance, mood disturbance, and anxiety; E66.9 Obesity, unspecified; Y84.6 Urinary catheterization as the cause of abnormal reaction of the patient, or of later complication, without mention of misadventure at the time of the procedure; Y92.9 Unspecified place or not applicable; Z79.4 Long term (current) use of insulin; Z66 Do not resuscitate; Z79.82 Long term (current) use of aspirin; Z79.899 Other long term (current) drug therapy; Z68.32 Body mass index [BMI] 32.0-32.9, adult

== ENCOUNTER → 2019-05-18 | Outpatient (CLI) | payer MEDICARE, MEDICAID | LOC: GRHH 14:35 | PROVIDERS: ATTEND Internal Medicine | DX: N39.0 Urinary tract infection, site not specified (principal); R41.82 Altered mental status, unspecified ==

== ENCOUNTER → 2019-08-29 | Outpatient (CLI) | payer MEDICARE, MEDICAID | LOC: GOCC 06:29 | PROVIDERS: ATTEND Internal Medicine | DX: N39.0 Urinary tract infection, site not specified (principal); N40.1 Benign prostatic hyperplasia with lower urinary tract symptoms; A41.9 Sepsis, unspecified organism ==

== ENCOUNTER → 2019-09-23 | Outpatient (CLI) | payer MEDICARE, MEDICAID | LOC: GOCC 16:58 | PROVIDERS: ATTEND Internal Medicine | DX: A41.9 Sepsis, unspecified organism (principal); N39.0 Urinary tract infection, site not specified ==

== ENCOUNTER 2019-12-05 12:43 | Emergency (ER) | payer MEDICARE, MEDICAID ==
--- NOTE | 2019-12-05 12:47 | ED.PDOC ---
History of Present Illness - General Time Seen by Provider: 12/05/19 12:46 Source: patient - History of Present Illness Initial Comments: 79 yo male with PMH of HTN, DM2, urinary retention with indwelling ellis catheter sent from [facility] with cc of shortness of breath. Patient is very poor historian. He does report moderate shortness of breath to me at the moment. He also complains of pains to the upper back region, unsure of onset, constant, 8/10 severity, pressure-like, unsure if worsened with exertion, nothing tried for relief. Reportedly the patient has had cough and congestion for the past week. He was diagnosed with pneumonia last week in the senior living and was begun on Levaquin. However he has continued to worsen and rapidly worsened today. He was noted to be hypoxic and increasing respiratory effort so EMS was called. On scene EMS reported initial SPO2 of 57% on room air. This improved to 83% on 4 L by nasal cannula O2 and then to 90+ percent on NRB O2 mask upon ED arrival. He also reports intermittent cough productive for yellow sputum for the past few days. Patient otherwise denies chest pain, fevers, chills, abdominal pain, leg swelling. There have been several other senior living residents diagnosed with COVID-19 recently. Patient confirms his DNR CODE STATUS upon arrival. Allergies/Adverse Reactions: Allergies NO KNOWN ALLERGY Allergy (Verified 02/10/19 08:06) Home Medications: Ambulatory Orders Tamsulosin [Flomax] 0.4 mg PO QD 02/10/18 Bisacodyl [Dulcolax] 10 mg ID Q24H PRN 08/01/18 Lactobacillus [Acidophilus Lactobacilli] 1 cap PO DAILY 08/01/18 Ondansetron HCl [Zofran] 4 mg PO Q6HR PRN 08/01/18 Polyethylene Glycol 1450 [Polyethylene Glycol Nf] 17 gm PO Q24H PRN 08/01/18 Sennosides [Senna-Lax] 2 tablet PO Q24H PRN 08/01/18 Acetaminophen [Tylenol] 650 mg PO Q4HR PRN 02/10/19 Aspirin [Adult Aspirin Regimen] 81 mg PO DAILY 02/10/19 Insulin Detemir [Levemir] 45 unit SUBCU BEDTIME 02/10/19 Insulin Lispro [Humalog] 8 unit SUBCU AC 02/10/19 Sennosides [Senna] 2 tablet PO BEDTIME 02/10/19 Insulin Lispro [Humalog] See Protocol SUBCU AC 04/05/19 Magnesium Citrate 300 ml PO Q24H PRN 04/05/19 Sodium Phos/Biphos Enema Adult [Fleet Enema (Adult)] 1 ea ID Q24H PRN 04/05/19 Ascorbic Acid [Vitamin C] 500 mg PO DAILY 12/05/19 Benzonatate Perles [Tessalon Perles] 200 mg PO PRN 12/05/19 Cetirizine HCl [ZyrTEC] 10 mg PO DAILY 12/05/19 Guaifenesin 400 mg PO TID 12/05/19 Guaifenesin [Guaifenesin ER] 600 mg PO BID 12/05/19 Ibuprofen 800 mg PO PRN 12/05/19 Metformin HCl [Metformin Hydrochloride E] 500 mg PO BID 12/05/19 Methylprednisolone 30 mg PO BID 12/05/19 Sodium Phos/Biphos Enema Adult [Fleet Enema (Adult)] 1 ea ID PRN 12/05/19 levoFLOXacin [Levaquin] 500 mg PO DAILY 12/05/19 Review of Systems - Review of Systems Review of Systems: 12/05/19 13:49 as per HPI All other Systems: Reviewed and Negative Past Medical History (General) - Patient Medical History Hx Seizures: No Hx Stroke: No Hx Dementia: Yes Hx Asthma: No Hx of COPD: No Hx Cardiac Disorders: No Hx Congestive Heart Failure: No Hx Pacemaker: No Hx Hypertension: Yes Hx Thyroid Disease: No Hx Diabetes: Yes Hx Gastroesophageal Reflux: Yes Hx Renal Disease: Yes - bladder dysfunction Hx Cancer: No Hx of HIV: No Hx Hepatitis C: No Hx MRSA: No MRSA Source:: Wound - Vaccination History Hx Tetanus, Diphtheria Vaccination: No Hx Influenza Vaccination: No Hx Pneumococcal Vaccination: No - Social History Hx Tobacco Use: No Hx Alcohol Use: No Hx Substance Use: No Hx Substance Use Treatment: No Hx Depression: No Hx Physical Abuse: No Hx Emotional Abuse: No - Female History Patient : No Family Medical History - Family History Father Family History: Unknown Physical Exam - Physical Exam General Appearance: Alert, No apparent distress Eye Exam: bilateral normal Ears, Nose, Throat: hearing grossly normal, normal ENT inspection Neck: non-tender, full range of motion, supple, normal inspection Respiratory: other - Increased respiratory rate of 26 bpm, speaking comfortably in full sentences, moves air throughout, diffuse wet rales noted throughout, no wheezes. 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 Also consider cards, pneumonia, sepsis, CHF, ACS, flu, other viral respiratory infection, aspiration pneumonia, UTI, other. -As patient is DNR CODE STATUS and does not wish to be intubated or placed on mechanical ventilation or receive chest compressions in the event of cardiac arrest, we will do all other aggressive measures medically to treat his current condition. He does understand that he could continue to deteriorate and possibly despite our measures. -Continue nonrebreather oxygen facemask, head of bed elevation. As no evidence of bronchospasm, will defer nebulized treatments at this time especially in the setting of suspected COVID-19. -Obtain full sepsis work-up, cardiac work-up, labs, urine specimen -Chest x-ray on arrival reveals bilateral diffuse interstitial opacities concerning for severe pneumonia per my read -Begin broad-spectrum IV antibiotics with Vanco and Zosyn 12/05/19 16:47 -Patient's condition largely unchanged, SPO2 88% on nonrebreather oxygen facemask, patient awake with moderate respiratory effort but able to still speak comfortably in full sentences, no distress. After our initial discussion the patient had confirmed his DNR CODE STATUS. However after further discussion with his son, Rakesh Diaz ([phone]), patient desires to be transferred to a higher level of care facility in case that he decompensates and may consider opting for intubation with mechanical ventilation at that time. I advised that we go ahead and intubate him now given his respiratory status but he declines as he feels comfortable at the moment. -His labs were significant for WBC 19,000 with left shift and bandemia, initial lactate 4.2, trop 0.02, d-dimer 648, alk phos 142. Otherwise pretty unremarkable. -CTA Chest obtained which revealed no evidence of PE but did reveal bilateral diffuse interstitial infiltrates consistent with severe pneumonia. -CT abdomen and pelvis with contrast obtained which revealed no acute processes -Thus I spoke with the ED physician at [facility] (Dr. Alomnte) who accepts the patient for transfer to their ED. Carrillo Estrada MD Billing #[id number] 12/05/19 12:53 Sodium Chloride 0.9% (Flush) [Saline Flush Syringe] 10 ml IV PRN PRN 12/05/19 13:00 EKG STAT 12/05/19 13:05 BLOOD CULTURE Stat 12/05/19 14:39 Hold Metformin x 48Hrs [id number] 12/06/19 09:00 Pulse Ox Daily Laboratory Results - last 24 hr 12/05/19 12/05/19 12/05/19 12:55 13:05 13:05 WBC 19.0 H RBC 4.94 Hgb 15.6 Hct 44.3 MCV 89.5 MCH 31.5 H MCHC 35.2 RDW 13.4 Plt Count 281 MPV 8.2 Absolute Neuts (auto) Not Reportable Absolute Lymphs (auto) Not Reportable Absolute Monos (auto) Not Reportable Absolute Eos (auto) Not Reportable Neutrophils % Not Reportable Neutrophils % (Manual) 84.0 H Lymphocytes % Not Reportable Lymphocytes % (Manual) 7.0 Monocytes % Not Reportable Monocytes % (Manual) 2.0 Eosinophils % Not Reportable Basophils % Not Reportable Band Neutrophils 7.0 H Metamyelocytes 1.0 H Platelet Estimate Normal Normal RBC Morphology Normal rbc morph PT INR PTT (SP) D-Dimer, Quantitative pCO2 33 L pO2 55 L HCO3 23.0 ABG pH 7.450 ABG O2 Saturation 88.5 L ABG Base Excess -0.2 ABG Deoxyhemoglobin 11.3 H Oxyhemoglobin % 87.1 L Carboxyhemoglobin % 1.1 Methemoglobin % Sat 0.5 Calc Total Hemoglobin 16.7 Sodium 133 L Potassium 4.1 Chloride 97 L Carbon Dioxide 22 Anion Gap 18.1 H BUN 28 H Creatinine 0.96 BUN/Creatinine Ratio 29.2 H Random Glucose 260 H Serum Osmolality 280.8 Lactic Acid Calcium 8.6 Total Bilirubin 0.7 AST 35 ALT 25 Alkaline Phosphatase 142 H Troponin I B-Natriuretic Peptide 100.0 Serum Total Protein 7.3 Albumin 2.8 L Globulin 4.5 H Albumin/Globulin Ratio 0.6 L Urine Color Urine Appearance Urine pH Ur Specific [place] Urine Protein Urine Glucose (UA) Urine Ketones Urine Blood Urine Nitrite Urine Bilirubin Urine Urobilinogen Ur Leukocyte Esterase Urine RBC Urine WBC Ur Epithelial Cells Amorphous Sediment Urine Bacteria Urine Yeast 12/05/19 12/05/19 12/05/19 13:05 13:05 13:05 WBC RBC Hgb Hct MCV MCH MCHC RDW Plt Count MPV Absolute Neuts (auto) Absolute Lymphs (auto) Absolute Monos (auto) Absolute Eos (auto) Neutrophils % Neutrophils % (Manual) Lymphocytes % Lymphocytes % (Manual) Monocytes % Monocytes % (Manual) Eosinophils % Basophils % Band Neutrophils Metamyelocytes Platelet Estimate Normal RBC Morphology PT 10.3 INR 1.04 PTT (SP) 22.4 D-Dimer, Quantitative 648.0 H* pCO2 pO2 HCO3 ABG pH ABG O2 Saturation ABG Base Excess ABG Deoxyhemoglobin Oxyhemoglobin % Carboxyhemoglobin % Methemoglobin % Sat Calc Total Hemoglobin Sodium Potassium Chloride Carbon Dioxide Anion Gap BUN Creatinine BUN/Creatinine Ratio Random Glucose Serum Osmolality Lactic Acid 4.2 H* Calcium Total Bilirubin AST ALT Alkaline Phosphatase Troponin I 0.02 B-Natriuretic Peptide Serum Total Protein Albumin Globulin Albumin/Globulin Ratio Urine Color Urine Appearance Urine pH Ur Specific [place] Urine Protein Urine Glucose (UA) Urine Ketones Urine Blood Urine Nitrite Urine Bilirubin Urine Urobilinogen Ur Leukocyte Esterase Urine RBC Urine WBC Ur Epithelial Cells Amorphous Sediment Urine Bacteria Urine Yeast 12/05/19 12/05/19 14:22 16:15 WBC RBC Hgb Hct MCV MCH MCHC RDW Plt Count MPV Absolute Neuts (auto) Absolute Lymphs (auto) Absolute Monos (auto) Absolute Eos (auto) Neutrophils % Neutrophils % (Manual) Lymphocytes % Lymphocytes % (Manual) Monocytes % Monocytes % (Manual) Eosinophils % Basophils % Band Neutrophils Metamyelocytes Platelet Estimate Normal RBC Morphology PT INR PTT (SP) D-Dimer, Quantitative pCO2 pO2 HCO3 ABG pH ABG O2 Saturation ABG Base Excess ABG Deoxyhemoglobin Oxyhemoglobin % Carboxyhemoglobin % Methemoglobin % Sat Calc Total Hemoglobin Sodium Potassium Chloride Carbon Dioxide Anion Gap BUN Creatinine BUN/Creatinine Ratio Random Glucose Serum Osmolality Lactic Acid 2.8 H* Calcium Total Bilirubin AST ALT Alkaline Phosphatase Troponin I B-Natriuretic Peptide Serum Total Protein Albumin Globulin Albumin/Globulin Ratio Urine Color Yellow Urine Appearance Clear Urine pH 6.0 Ur Specific [place] 1.025 Urine Protein 100 H Urine Glucose (UA) 500 H Urine Ketones Trace Urine Blood Trace-intact H Urine Nitrite Negative Urine Bilirubin Negative Urine Urobilinogen 1.0 Ur Leukocyte Esterase Negative Urine RBC 3-5 H Urine WBC 3-5 H Ur Epithelial Cells 5-10 Amorphous Sediment 2+ Urine Bacteria 1+ Urine Yeast 4+ budding - EKG/XRAY/CT EKG: Sinus, Tachy - Heart rate 100, no ST elevations or Q waves noted, axis normal, intervals normal, compared to 04/05/19 EKG appears unchanged Departure - Departure Clinical Impression: COVID-19, Hypoxia, Respiratory distress, acute Pneumonia Qualifiers: Pneumonia type: due to unspecified organism Laterality: bilateral Lung location: lower lobe of lung Qualified Code(s): J18.9 - Pneumonia, unspecified organism Time of Disposition: 16:47 Disposition: Transfer to Hospital Condition: Serious Departure Forms: ED Discharge - Pt. Copy, Patient Portal Self Enrollment Referrals: WILLIAM RASHEED [Primary Care Provider] - 1-2 Weeks Home Medications: Ambulatory Orders Tamsulosin [Flomax] 0.4 mg PO QD 02/10/18 Bisacodyl [Dulcolax] 10 mg ID Q24H PRN 08/01/18 Lactobacillus [Acidophilus Lactobacilli] 1 cap PO DAILY 08/01/18 Ondansetron HCl [Zofran] 4 mg PO Q6HR PRN 08/01/18 Polyethylene Glycol 1450 [Polyethylene Glycol Nf] 17 gm PO Q24H PRN 08/01/18 Sennosides [Senna-Lax] 2 tablet PO Q24H PRN 08/01/18 Acetaminophen [Tylenol] 650 mg PO Q4HR PRN 02/10/19 Aspirin [Adult Aspirin Regimen] 81 mg PO DAILY 02/10/19 Insulin Detemir [Levemir] 45 unit SUBCU BEDTIME 02/10/19 Insulin Lispro [Humalog] 8 unit SUBCU AC 02/10/19 Sennosides [Senna] 2 tablet PO BEDTIME 02/10/19 Insulin Lispro [Humalog] See Protocol SUBCU AC 04/05/19 Magnesium Citrate 300 ml PO Q24H PRN 04/05/19 Sodium Phos/Biphos Enema Adult [Fleet Enema (Adult)] 1 ea ID Q24H PRN 04/05/19 Ascorbic Acid [Vitamin C] 500 mg PO DAILY 12/05/19 Benzonatate Perles [Tessalon Perles] 200 mg PO PRN 12/05/19 Cetirizine HCl [ZyrTEC] 10 mg PO DAILY 12/05/19 Guaifenesin 400 mg PO TID 12/05/19 Guaifenesin [Guaifenesin ER] 600 mg PO BID 12/05/19 Ibuprofen 800 mg PO PRN 12/05/19 Metformin HCl [Metformin Hydrochloride E] 500 mg PO BID 12/05/19 Methylprednisolone 30 mg PO BID 12/05/19 Sodium Phos/Biphos Enema Adult [Fleet Enema (Adult)] 1 ea ID PRN 12/05/19 levoFLOXacin [Levaquin] 500 mg PO DAILY 12/05/19 Critical Care Note - Critical Care Note Total Time (mins): 45 Comments: Critical Care Time: Upon my evaluation, this patient had a high probability of life-threatening deterioration due to acute hypoxic respiratory distress due to COVID-19, which required my direct attention, intervention, and management. I have provided 45 minutes of critical care time exclusive of separately billable procedures. My time included: direct patient care, review of labs and radiology, obtaining history from and counseling the patient and the family, discussion with consultants and/or other medical personnel, documentation, and monitoring for potential decompensation. Transfer to Outside Facility - Transfer Information Decision to Transfer Date: 12/05/19 Decision to Transfer Time: 16:47 Reason for Transfer: ICU Accepting Provider:: Dr. Almonte Accepting Facility: [facility]
[2019-12-05] MEDS ORDERED: SODIUM CHLORIDE 0.9% (FLUSH) 10 ML SYG IV PRN (12:53)
--- NOTE | 2019-12-05 13:22 | RAD ---
EXAM DESCRIPTION: Chest x-ray,1 View CLINICAL HISTORY: 79 years Male, dyspnea, hypoxia COMPARISON: Previous study April 05, 2019 TECHNIQUE: AP portable chest. FINDINGS: Heart size is large with increased pulmonary vascularity. Right hemidiaphragm is elevated. Extensive bilateral pulmonary infiltrates are seen, new since previous study. Findings are consistent with bilateral pneumonia. No pulmonary mass or worrisome nodule. No pneumothorax or pleural effusion. Bones are unremarkable. IMPRESSION: Large heart with increased vascularity. Bilateral pulmonary infiltrates consistent with pneumonia. Electronically signed by: Neel Mirza MD 12/05/2019 1:21 PM CDT
[2019-12-05] MEDS ORDERED: SODIUM CHLORIDE 0.9% 500ML 500 ML IVS ONE (13:45)
[2019-12-05] MEDS ORDERED: SODIUM CHLORIDE 0.9% 1000ML 1,000 ML IVS ONE (14:02)
[2019-12-05] MEDS ORDERED: PIPERACILLIN/TAZOBACTAM 4.5 GM in SODIUM CHLORIDE 0.9% 100ML 100 ML IVPB ONE (14:14)
[2019-12-05] MEDS ORDERED: VANCOMYCIN HCL INJ 1,000 MG, VANCOMYCIN HCL INJ 500 MG in SODIUM CHLORIDE 0.9% 250ML 25... IVPB ONE (14:14)
--- NOTE | 2019-12-05 16:22 | CT ---
EXAM DESCRIPTION: CTA Chest CLINICAL HISTORY: 79 years, Male, dyspnea, hypoxia, d-dimer elevation COMPARISON: Chest radiograph same day. TECHNIQUE: CT pulmonary angiography is performed with thin-section multi detector technique during rapid bolus administration of IV contrast media. Multiplanar reformatted images are reviewed along with source images and maximum intensity projection three dimensional images which were created on a separate dedicated workstation and are stored in the patient's medical record. FINDINGS: No evidence of filling defect within the main, right or left, or lobar pulmonary artery branches. Evaluation of the subsegmental pulmonary arterial branches are limited due to the presence of significant bilateral pulmonary infiltrates. The pulmonary arteries are normal in caliber. Limited evaluation of the thoracic aorta is within normal limits without gross evidence of aneurysm or dissection. The lungs are hypoventilated with vascular crowding. Bilateral peribronchial vascular is interstitial and alveolar infiltrates with groundglass opacities are noted. Findings are slightly more pronounced in the upper lungs. There is no significant pleural effusion or pneumothorax. The trachea and proximal bronchi are patent. No mediastinal or hilar lymphadenopathy. The heart is normal in size without pericardial effusion. No acute osseous abnormality. IMPRESSION: 1. No acute or chronic pulmonary embolism within the pulmonary trunk, main pulmonary arteries or lobar arterial branches. Evaluation of the subsegmental branches are limited. 2. Diffuse bilateral lung interstitial and alveolar opacities. Differential includes multifocal pneumonia, pneumonitis, and ARDS. 3. No pleural effusion or pneumothorax. This exam was performed according to our departmental dose-optimization program, which includes automated exposure control, adjustment of the mA and/or kV according to patient size and/or use of iterative reconstruction technique. Electronically signed by: Matt Sotelo DO 12/05/2019 4:21 PM CDT
--- NOTE | 2019-12-05 16:32 | CT ---
EXAM DESCRIPTION: CT ABDOMEN AND PELVIS WITH CONTRAST CLINICAL HISTORY: sepsis, elevated alk phos COMPARISON: CT abdomen and pelvis dated 04/05/2019. TECHNIQUE: CT of the abdomen and pelvis are performed after IV contrast administration. No oral contrast was given. Multiplanar reconstructions were obtained. FINDINGS: Bilateral interstitial and alveolar infiltrates are better characterized on same-day CT chest. Small sliding-type hiatal hernia The liver is normal in contour and enhancement. The gallbladder is surgically absent. No biliary ductal dilatation. The spleen is normal in size. The pancreas and adrenals enhance normally. The kidneys are normal in size and contour. No hydronephrosis or nephrolithiasis. Mild chronic perinephric fat stranding. Small bilateral renal cysts. No focal bowel wall thickening or bowel obstruction. Small amount of retained stool within the large bowel. The appendix is not visualized and may be surgically absent. There is no lymphadenopathy, inflammation, or free fluid observed. No free air. No organized abdominopelvic fluid collection or abscess. A Sanchez catheter decompresses the bladder. Mild bladder wall thickening likely related to decompressed state. The prostate is mildly enlarged. No acute osseous abnormality. Chronic left femur trochanter fracture deformity. The bone mineralization is decreased. IMPRESSION: 1. No acute intra-abdominal/pelvic process on CT. No drainable fluid collection or abscess. 2. Prior cholecystectomy. No biliary ductal dilatation. This exam was performed according to our departmental dose-optimization program, which includes automated exposure control, adjustment of the mA and/or kV according to patient size and/or use of iterative reconstruction technique. Electronically signed by: Matt Sotelo DO 12/05/2019 4:31 PM CDT
[2019-12-05 18:03] VITALS: BP 141/88; TEMP 97.4; O2SAT 89
== END 2019-12-05 18:05 | disposition short-term general hospital (02) ==
LOC: ER 12:43
DX: U07.1 COVID-19 (principal); J18.9 Pneumonia, unspecified organism; R09.02 Hypoxemia; R06.03 Acute respiratory distress; I10 Essential (primary) hypertension; E11.9 Type 2 diabetes mellitus without complications; Z20.828 Contact with and (suspected) exposure to other viral communicable diseases; Z79.4 Long term (current) use of insulin; Z79.899 Other long term (current) drug therapy; Z79.82 Long term (current) use of aspirin
CPT/HCPCS: 36415; 36600; 71045; 71275; 74177; 80053; 81001; 82803; 82805; 83605; 83880; 84484; 85025; 85379; 85610; 85730; 87040; 87635; 93005; A4216; J2543; J3370; J7030; J7040; J7050